=== PATIENT | male | born 2000 | race Caucasian/White ===

== ENCOUNTER 2023-02-22 13:00 | Outpatient (RCR) | payer BC, SELFPAY | END 2023-05-08 09:32 | disposition home or self-care (01) | PROVIDERS: PCP Family Medicine; Visit Provider Physician Assistant Medical | DX: M25.561 Pain in right knee (principal); G89.29 Other chronic pain; M62.81 Muscle weakness (generalized); M25.662 Stiffness of left knee, not elsewhere classified; Z51.89 Encounter for other specified aftercare | CPT/HCPCS: 97110; 97163 ==

== ENCOUNTER 2023-06-22 23:47 | Emergency (ER) | payer BC, SELFPAY ==
[2023-06-22 23:55] VITALS: BP 147/80; PULSE 79; RESP 16; TEMP 36.9; O2SAT 98
--- NOTE | 2023-06-23 00:10 | CRLHL7_ITS ---
For Patients: As a result of the Century Cures Act, medical imaging exams and procedure reports are released immediately into your electronic medical record. You may view this report before your referring provider. If you have questions, please contact your health care provider. INDICATION: Left leg pain leg surgery 1 week ago TECHNIQUE: Ultrasound venous duplex lower left extremity. Compression venous exam was performed using spring-scale, color Doppler, and spectral Doppler analysis. COMPARISON: None FINDINGS: Sonographic imaging demonstrates the left common femoral, deep femoral, superficial femoral, popliteal, posterior tibial and greater saphenous and the contralateral right common femoral veins to be fully compressible with normal color Doppler blood flow. IMPRESSION: Normal left lower extremity venous ultrasound, no sign of deep venous thrombosis. Dictated by Zonia Gifford MD @ 06/23/2023 1:44:40 AM (Electronically Signed)
--- NOTE | 2023-06-23 00:11 | ED.GENADULT ---
HPI - General Adult General Chief complaint: Unspecified Complaint, Adult Stated complaint: Post-surgery, leg pain L side Time Seen by Provider: 06/23/23 00:06 History of Present Illness HPI narrative: Patient is a 23-year-old gentleman who has had repeated surgeries on the right cutaneous femoral region most recently a DRG which is apparently a continuous stimulator. This is helped with his pain in the right groin but he last night developed significant swelling in his left leg. The pain has persisted with swelling today although it is somewhat improved. He tried: His surgeon and was unable to get a hold of them. He is concerned that he has a blood clot in his left leg. He has had no recent injuries. He has no redness no warmth no significant swelling noted tonight. He has normal range of motion of all of his joints as no worsening of his symptoms with walking. He is chronically on oxycodone and hydrocodone as well as hydroxyzine for his discomfort. Related Data Home Medications Medication Instructions Recorded Confirmed hydrocodone 5 mg-acetaminophen 325 1 tab PO Q6-8H chronic pain 06/23/23 06/23/23 mg tablet hydroxyzine HCl 25 mg tablet 25 mg PO BID 06/23/23 06/23/23 oxycodone 5 mg tablet PO 06/23/23 Allergies Allergy/AdvReac Type Severity Reaction Status Date / Time amoxicillin Allergy Intermediate Hives Verified 06/23/23 00:00 cephalexin Allergy Intermediate Verified 06/23/23 00:00 Review of Systems Status of ROS: Reports: 10 or more systems reviewed and unremarkable except as noted in History and below [facility] Social History Smoking Status: Never smoker Do you use any of these nicotine containing products: None How often do you have a drink containing alcohol: never AUDIT-C Alcohol total score: 0 Non-prescribed substance use: denies use Exam Narrative: Exam Narrative: EXAM GENERAL: Patient appears comfortable and well. EYES: No scleral icterus. ENT: Tympanic membranes and oropharynx normal. THYROID: no thyroid nodules or thyromegaly. LYMPH: No supraclavicular or cervical lymphadenopathy. SKIN: Visible skin seen during exam normal or with benign process only. EXT: No dependent lower extremity pedal edema. HEART: Regular rate and rhythm with no murmurs, rubs, or gallops. LUNGS: Clear to auscultation bilaterally with no crackles or wheezes. ABD: Soft, non tender, non distended. PSYCH: Good eye contact, speech is not pressured. Const: Vital Signs, click to edit/add: Vital Signs - 24 hr 06/22/23 23:55 Temperature 98.5 F Pulse Rate [Left P ulse Oximeter] 79 Respiratory Rate 16 Blood Pressure [Ri ght Upper Arm] 147/80 H Pulse Oximetry 98 Oxygen Delivery Me thod Room Air Course Course ED Course: Patient seen examined. I do not see any significant findings on exam. Proceed with a duplex of the left lower extremity. Vital Signs Vital signs: Initial Vital Signs Temperature 98.5 F 06/22/23 23:55 Temperature Source Oral 06/22/23 23:55 Pulse Rate 79 06/22/23 23:55 Pulse Rhythm Regular 06/22/23 23:55 Respiratory Rate 16 06/22/23 23:55 Blood Pressure 147/80 H 06/22/23 23:55 Blood Pressure Mean 102 06/22/23 23:55 Blood Pressure Position Sitting 06/22/23 23:55 Pulse Oximetry 98 06/22/23 23:55 Oxygen Delivery Method Room Air 06/22/23 23:55 Vital Signs Temperature 98.5 F 06/22/23 23:55 Pulse Rate 79 06/22/23 23:55 Respiratory Rate 16 06/22/23 23:55 Blood Pressure 147/80 H 06/22/23 23:55 Pulse Oximetry 98 06/22/23 23:55 Oxygen Delivery Method Room Air 06/22/23 23:55 Temperature 98.5 F 06/22/23 23:55 Pulse Rate 79 06/22/23 23:55 Respiratory Rate 16 06/22/23 23:55 Blood Pressure 147/80 H 06/22/23 23:55 Pulse Oximetry 98 06/22/23 23:55 Oxygen Delivery Method Room Air 06/22/23 23:55 Medical Decision Making MDM Narrative Medical decision making narrative: Patient presents with pain and swelling left leg following a surgical procedure on the right leg. Duplex of left lower extremity is normal. Patient has a normal physical exam reasonably normal vital signs. At this time I did offer reassurance continue pain management follow-up with his primary physician as needed. Discharge Plan Discharge Clinical Impression: Leg swelling Patient Disposition: Home, Self-Care Condition: Stable Instructions: Leg Edema (ED) Additional Instructions: Continue symptomatic treatment Leg elevation Continue current medications Follow-up with your doctor next week. Activity Level: No Restrictions Discharge Diet: Regular Prescriptions: No Action hydrocodone-acetaminophen 5-325 mg tablet 1 tab PO Q6-8H hydroxyzine HCl 25 mg tablet 25 mg PO BID oxycodone 5 mg tablet PO Follow Up/Referrals: Marcelo Javier MD [Primary Care Provider] - Stand Alone Forms: [employer] Info Instructions
== END 2023-06-23 01:26 | disposition home or self-care (01) ==
PROVIDERS: Emergency Provider Internal Medicine; PCP Family Medicine
DX: R22.42 Localized swelling, mass and lump, left lower limb (principal)
CPT/HCPCS: 93971; 99283

== ENCOUNTER 2025-06-05 20:14 | Emergency (ER) | payer BC, SELFPAY ==
--- OUTSIDE RECORDS SUMMARY | 2022-01-11 05:56 | XMS_ITS | Continuity of Care Document ---
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 Phone Curry Rojas MD, Francisco Unavailable Unavailabl e Allergies, Adverse Reactions, Alerts Substance Reaction Status Criticality cephalexin Active No Information amoxicillin Active No Information Medications Medication Instructions Dosage Effective Dates (start - stop) Status Comments gabapentin 600 mg tablet take 1 tablet by oral route 3 times every day 600 MG - Active Xifaxan 550 mg tablet take 1 tablet by oral route 3 times every day 550 MG - Active ciprofloxacin 500 mg tablet take 1 tablet by oral route 2 times every day 500 MG - Active hydroxyzine HCl 25 mg tablet take 1 tablet by oral route 3 times every day as needed 25 MG - Active hydrocodone 5 mg-acetaminophen 325 mg tablet take 1 - 1.5 tablet by oral route 2 times every day 1-1.5 tablet - Active Probiotic 10 billion cell capsule take 1 capsule by oral route every day 1 capsule - Active Herbal Medications/Supplemen ts unknown - Active Procedures Procedure Date Offic/outpt E&m Estab Mod-hi 2 22 Stool Kits Given Ugi Endo; W/bx 1/mx Level Iv-surg Path Gross/micro Colonoscopy Flex; W/bx 1/mx Level Iv-surg Path Gross/micro Routine Serum Collection Offic/outpt E&m [facility] Mod-hi Advance Directives Directive Yes / No Effective Date File Name No Information Encounters Encounter Description Practice Location Reason(s) For Visit Diagnoses Date Provider Providers Copied on Encounter [facility], [address] [address], [place], [id number], [place] tel:[phone] [facility] No Information 2 Curry Singh. [address], [facility] [address], [place], [place], [id number], [place]. tel:[phone] Offic/outpt E&m [facility] Mod-hi 2 [facility], [address] [address], [place], [id number], [place] tel:[phone] [facility] GI Symptoms or Concerns (chief complaint) Irritable bowel syndrome with diarrhea 2 Leyla Roblero. [address], [address], [place], [place], [id number], [place]. tel:[phone] Referring Provider: Referral Self, USE FOR SELF REFERRALS. [facility] [place], [address] [address], [place], [id number], [place] tel:[phone] [facility] No Information 1 No Information [facility] [place], [address] [address], [place], [id number], [place] tel:[phone] [facility] No Information 1 Nisha Perez. [address], [address], [place], [place], [address], [place]. tel:[phone] Referring Provider: Referral Self, USE FOR SELF REFERRALS. [facility] [place], [address] [address], [place], [id number], [place] tel:[phone] [facility] Lower abdominal pain, unspecifiedDia rrhea, unspecifiedEpi gastric painEpigastric painDiarrhea, unspecifiedLow er abdominal pain, unspecified Jun- 1 Nisha Perez. [address], [facility] [address], [place], [address], [place]. tel:[phone] Referring Provider: Referral Self, USE FOR SELF REFERRALS. [facility], [address] [address], [place], [id number], [place] tel:[phone] [facility] Lower abdominal painGeneralize d abdominal painDiarrhea, unspecified 1 No Information [facility], [address] [address], [place], [id number], [place] tel:[phone] [facility] Diarrhea, unspecified No Information [facility], [address] [address], [place], [id number], [place] tel:[phone] [facility] Diarrhea, unspecifiedDia rrhea, unspecified 1 Wayne Lucas. [address], [address], [id number], [place]. tel:[phone] Referring Provider: Marcelo Edmonds, Ras [facility], [place], [address]. tel:[phone] Offic/outpt E&m [facility], [address] [address], [place], [id number], [place] tel:[phone] [facility] GI Symptoms or Concerns (chief complaint) Diarrhea, unspecified type 1 No Information Referring Provider: Referral Self, USE FOR SELF REFERRALS. [facility], [address] [address], [place], [id number], [place] tel:[phone] [facility] No Information 1 Fela Nicolas. [address], [facility] [address], [place], [address], [place]. tel:[phone] Family History Family Member Type Diagnosis Age At Onset Mother Problem (finding) diverticulitis of colon Immunizations Vaccine Date Status Comments SARS-COV-2 (COVID-19) vaccin e, mRNA, spike protein, LNP, preservative free, 30 mcg/0.3mL dose administered Note: [facility] bi-direct ional interface ; Source: Other Registry SARS-COV-2 (COVID-19) vaccin e, mRNA, spike protein, LNP, preservative free, 30 mcg/0.3mL dose administered Note: [facility] bi-direct ional interface ; Source: Other Registry SARS-COV-2 (COVID-19) vaccin e, mRNA, spike protein, LNP, preservative free, 30 mcg/0.3mL dose administered Note: [facility] bi-direct ional interface ; Source: Other Registry Afluria Qd administered Note: [facility] bi-directional interface ; Source: Other Registry Afluria Qd administered Note: [facility] bi-directional interface ; Source: Other Registry Afluria Qd administered Note: [facility] bi-directional interface ; Source: Other Registry Afluria Qd administered Note: [facility] bi-directional interface ; Source: Other Registry Havrix pediatric administered Note: [facility] bi-directional interface ; Source: Other Registry meningococcal oligosaccharid e (groups A, C, Y and W-135) diphtheria toxoid conjugate vaccine (MCV4O) administered Note: [facility] bi-direct ional interface ; Source: Other Registry Afluria Qd administered Note: [facility] bi-directional interface ; Source: Other Registry Afluria Qd administered Note: M [facility] bi-directional interface ; Source: Other Registry human papilloma virus vaccin e, quadrivalent administered Note: [facility] bi-direct ional interface ; Source: Other Registry human papilloma virus vaccin e, quadrivalent administered Note: [facility] bi-direct ional interface ; Source: Other Registry human papilloma virus vaccin e, quadrivalent administered Note: [facility] bi-direct ional interface ; Source: Other Registry Havrix pediatric administered Note: [facility] bi-directional interface ; Source: Other Registry meningococcal oligosaccharid e (groups A, C, Y and W-135) diphtheria toxoid conjugate vaccine (MCV4O) administered Note: [facility] bi-direct ional interface ; Source: Other Registry tetanus toxoid, reduced diphtheria toxoid, and acellular pertussis vaccine, adsorbed administered Note: [facility] b i-directional interface ; Source: Other Registry Influenza, seasonal, injecta ble, preservative free administered Note: [facility] bi-direct ional interface ; Source: Other Registry Influenza, seasonal, injectable administe red Note: [facility] bi- directional interface ; Source: Other Registry Novel [id number], all formulations administered Note: [facility] bi-direct ional interface ; Source: Other Registry Influenza, seasonal, injectable administe red Note: [facility] bi- directional interface ; Source: Other Registry Influenza, seasonal, injectable administe red Note: [facility] bi- directional interface ; Source: Other Registry Influenza, seasonal, injectable administe red Note: [facility] bi- directional interface ; Source: Other Registry Influenza, seasonal, injectable administe red Note: [facility] bi- directional interface ; Source: Other Registry influenza virus vaccine, unspecified formulation administered Note: [facility] bi-di rectional interface ; Source: Other Registry diphtheria, tetanus toxoids and acellular pertussis vaccine administered Note: [facility] b i-directional interface ; Source: Other Registry poliovirus vaccine, inactivated administe red Note: [facility] bi- directional interface ; Source: Other Registry measles, mumps and rubella v irus vaccine administered Note: [facility] bi-direct ional interface ; Source: Other Registry Pneumovax administered Note: [facility] bi-d irectional interface ; Source: Other Registry measles, mumps and rubella v irus vaccine administered Note: [facility] bi-direct ional interface ; Source: Other Registry DTaP-Haemophilus influenzae type b conjugate vaccine administered Note: [facility] bi-direct ional interface ; Source: Other Registry varicella virus vaccine administered Note : [facility] bi-directional interface ; Source: Other Registry Pneumovax administered Note: [facility] bi-d irectional interface ; Source: Other Registry Pneumovax administered Note: [facility] bi-d irectional interface ; Source: Other Registry Engerix-B administered Note: [facility] bi-d irectional interface ; Source: Other Registry poliovirus vaccine, inactivated administe red Note: [facility] bi- directional interface ; Source: Other Registry Haemophilus influenzae type b vaccine, PRP-T conjugate administered Note: [facility] bi-d irectional interface ; Source: Other Registry Engerix-B administered Note: [facility] bi-d irectional interface ; Source: Other Registry diphtheria, tetanus toxoids and acellular pertussis vaccine administered Note: [facility] b i-directional interface ; Source: Other Registry poliovirus vaccine, inactivated administe red Note: [facility] bi- directional interface ; Source: Other Registry Haemophilus influenzae type b vaccine, PRP-T conjugate administered Note: [facility] bi-d irectional interface ; Source: Other Registry Engerix-B administered Note: [facility] bi-d irectional interface ; Source: Other Registry diphtheria, tetanus toxoids and acellular pertussis vaccine administered Note: [facility] b i-directional interface ; Source: Other Registry poliovirus vaccine, inactivated administe red Note: [facility] bi- directional interface ; Source: Other Registry Haemophilus influenzae type b vaccine, PRP-T conjugate administered Note: [facility] bi-d irectional interface ; Source: Other Registry diphtheria, tetanus toxoids and acellular pertussis vaccine administered Note: [facility] b i-directional interface ; Source: Other Registry Payers Payer name Insurance type Covered constitution party ID Authoriza tion(s) [place] [id number] Social History Type Description Quantity Date Captured Comments Sex Male Smoking Status No Information Chief Complaint And Reason For Visit No Information Reason For Referral Reason For Referral No Information Plan Of Treatment Date Type Action Status Referral Ordered: Ultrasound Abdomen Appointment date/timeframe: 06/29/2021 ordered Referral Ordered: Giardia lamblia Ag, EIA Appointment date/timeframe: 07/08/2021 ordered Referral Ordered: CMP Appointment date/timeframe: 07/08/2021 ordered Referral Ordered: Amylase Appointment date/timeframe: 07/08/2021 ordered Referral Ordered: EGD Appointment date/timeframe: 06/25/2021 ordered Referral Ordered: C-Reactive Protein Appointment date/timeframe: 07/08/2021 ordered Referral Ordered: Stool Culture Appointment date/timeframe: 07/08/2021 ordered Referral Ordered: CBC w/diff Appointment date/timeframe: 07/08/2021 ordered Referral Ordered: Ova + Parasites Appointment date/timeframe: 07/08/2021 ordered Referral Ordered: MRI Enterography WITH Contrast Appointment date/timeframe: 06/16/2021 ordered Referral Ordered: Colonoscopy Appointment date/timeframe: First Available ordered History Of Present Illness Encounter Date Complaint History Of Prese nt Illness GI Symptoms or Concerns I had th e pleasure of seeing Mr. Mehta in the office today, who is here for follow up of abdominal pain, loose stools. History is provided by the patient.Patient is a 21-year-old male with a prior GI workup suggestive of IBS who is here for evaluation of ongoing symptoms. He reports having developed diarrhea around March 2021, associated with left lower quadrant crampy abdominal pain with increased mucus. At that time, he underwent upper endoscopy and colonoscopy -both within normal limits. Labs including celiac serology, CBC were normal. He was treated for E coli with ciprofloxacin without much change in his symptoms at that time.Currently, he endorses 3-4 bowel movements daily, generally loose on most days. However, he does have regular bowel movements occasionally. He continues to have left lower quadrant crampy abdominal pain that generally gets better after moving his bowels. Denies any associated melena, hematochezia, fever, chills, any extra intestinal manifestations such as arthritis, uveitis, rash or aphthous ulcers. His weight and appetite has been mostly stable for last many months. Other workup has included imaging studies, including CT scans and MRE -although I do not have access to his MR enterography report. All these studies were unremarkable. There is no family history of IBD or any GI cancers. He reports personal history of migraine. GI Symptoms or Concerns Fidencio is a 21-year-old male who self-referred for evaluation today regarding diarrhea. He reports a 2 month history of diarrhea. Approximately 2 months ago he had a COVID infection followed shortly thereafter by knee surgery. He was taking narcotics for pain following his knee surgery as well as stool softeners for a limited time. Shortly following this he developed loose, watery bowel movements.Has 4-5 bowel movements per day on average day but can be upwards of 7. Most stools are [place] 5, 6. He also has a sensation of incomplete evacuation, mucous with his bowel movements. He has associated cramping like abdominal pain that comes and goes often precedes a bowel movement and is at times relieved with a bowel movement. He describes this cramping pain is similar to when he had the C diff infection. He reports some bowel movements in the overnight hours. He has tried to exclude dairy which was not helpful. Has also tried a pre and probiotic, fiber. These also were not helpful. Stool testing from his provider showed negative cdiff, stool panel which included camplyobacter, salmonella, shigella, vibrio, yersinia enterocolitica, shiga toxin, norovirus, rotavirus, was negative. (giardia not tested). His weight has decreased by 7 pounds in the last couple months. He reports his appetite is impaired. Denies fever, chills, nausea, vomiting, rectal bleeding or bloody stools. He has a past medical history of salivary stone. Status post appendectomy, tonsillectomy. He has had multiple knee surgeries. He has no family history of ulcerative colitis, celiac disease. His mother has diverticulosis. He does not smoke. Drinks 1 alcoholic beverage per week. He takes NSAIDs very frequently but did use some following his recent knee surgery. He has not had any recent travel. He has not been exposed to any sick contacts. Functional Status Date Functional Assessmen t No Information Instructions Date Instruction Additional Infor williams H Pylori Related to Diarr hea, unspecified Colon Cancer Prevention Related to Diarrhea, unspecified LAB TESTSWe will dra leela mac to check:CBC (complete blood count) to look for anemia/assess white blood cell countTSH (thyroid stimulating hormone) to check thyroid functionBMP (basic metabolic panel or comprehensive metabolic panel) to check kidney function and electrolytesCeliac panel to screen for celiac diseasePROCEDURESWe will schedule a colonoscopy and will obtain biopsies of the colon to look for evidence of inflammation.We will schedule an EGD to obtain biopsies of the duodenum to evaluate for celiac disease (if blood work for celiac disease is positive).LIFESTYLEDrink plenty of water to avoid dehydration.FOLLOW UPWe will schedule a follow up visit following testing. MEDICATIONSStart Imodium 2 tablets (4 mg) initially, then 1 tablet (2 mg) after each loose stool, not to exceed 16mg per day. Related to Diarrhea, unspecified type Assessments Type Assessment Date No Information Patient Care Teams Name Effective Dates (start - stop) Status Members No Information
--- OUTSIDE RECORDS SUMMARY | 2022-01-11 05:56 | XMS_ITS | Continuity of Care Document ---
Author Organization [facility] Address [address] [address] [place] [address] Phone Care Team Providers Care Receptionist Nurse Name Role Phone Curry Rojas MD, Francisco [...] Path Gross/micro Routine Serum Collection Offic/outpt E&m [facility] Mod-hi Advance Directives Directive Yes / No Effective Date File Name No Information Encounters Encounter Description Practice Location Reason(s) For Visit Diagnoses Date Provider Providers Copied on Encounter [facility], [address] [address], [place], [id number], [place] tel:[phone] [facility] No Information 2 Curry Singh. [address] [facility], [facility] [address], [place], [place], [id number], [place]. tel:[phone] Offic/outpt E&m [facility] Mod-hi 2 [facility], [address] [address], [place], [id number], [place] tel:[phone] [facility] GI Symptoms or Concerns (chief complaint) Irritable bowel syndrome with diarrhea 2 Leyla Roblero. [address] [facility], [address], [place], [place], [id number], [place]. tel:[phone] Referring Provider: Referral Self, USE FOR SELF REFERRALS. [facility], [address] [address], [place], [id number], [place] tel:[phone] [facility] No Information 1 No Information [facility], [address] [address], [place], [id number], [place] tel:[phone] [facility] No Information 1 Nisha Perez. [address] [facility], [address], [place], [place], [address], [place]. tel:[phone] Referring Provider: Referral Self, USE FOR SELF REFERRALS. [facility], [address] [address], [place], [id number], [place] tel:[phone] [facility] Lower abdominal pain, unspecifiedDia rrhea, unspecifiedEpi gastric painEpigastric painDiarrhea, unspecifiedLow er abdominal pain, unspecified Jun- 1 Nisha Perez. [address] [facility], [facility] [address], [place], [id number], [place]. tel:[phone] Referring Provider: Referral Self, USE FOR SELF REFERRALS. [facility], [address] [address], [place], [id number], [place] tel:[phone] [facility] Lower abdominal painGeneralize d abdominal painDiarrhea, unspecified 1 No Information [facility], [address] [address], [place], [id number], [place] tel:[phone] [facility] Diarrhea, unspecified No Information [facility], [address] [address], [place], [id number], [place] tel:[phone] [facility] Diarrhea, unspecifiedDia rrhea, unspecified 1 Wayne Lucas. [address] [facility], [address], [id number], [place]. tel:[phone] Referring Provider: Marcelo Edmonds, Ras [facility], [place], [address]. tel:[phone] Offic/outpt E&m [facility], [address] [address], [place], [id number], [place] tel:[phone] [facility] GI Symptoms or Concerns (chief complaint) Diarrhea, unspecified type 1 No Information Referring Provider: Referral Self, USE FOR SELF REFERRALS. [facility], [address] [address], [place], [id number], [place] tel:[phone] [facility] No Information 1 Fela Nicolas. [address] [facility], [facility] [address], [place], [id number], [place]. tel:[phone] Family History Family Member Type Diagnosis Age [...] directional interface ; Source: Other Registry Novel [id number], all formulations administered Note: [facility] bi-direct ional [...] Registry Payers Payer name Insurance type Covered alliance party ID Authoriza tion(s) [place] [id number] Social History Type Description Quantity Date Captured [...] be upwards of 7. Most stools are [place] 5, 6. He also has a sensation [...]
--- OUTSIDE RECORDS SUMMARY | 2023-10-05 06:08 | XMS_ITS | Continuity of Care Document ---
Author Organization [facility] Address [address] [facility] [place] [address] Care Team Providers Care Sailmaker Name Role Phone Jewel Mccormick CRNA Unavailable Unavailable Procedures Procedure Date Percutaneous Image guided neuromodulatio n or intra Percutaneous Image guided neuromodulatio n or intra Percutaneous Image guided neuromodulatio n or intra ANESTH, HEAD/NECK/PTRUNK Percutaneous Image guided neuromodulatio n or intra ANESTH, HEAD/NECK/PTRUNK Percutaneous Image guided neuromodulatio n or intra Advance Directives Directive Yes / No Effective Date File Name No Information Encounters Encounter Description Practice Location Reason(s) For Visit Diagnoses Date Provider Providers Copied on Encounter [facility], [address] [facility] [place], [id number], [facility] [place] No Information 4 Jace Holloway. [address] [facility], [place], [place], [id number], . tel:[phone] Referring Provider: Kaylie Yanez, [address] [place], [address] . tel:[phone] [facility], [address] [facility] [address] [place], [place], [id number], [facility] [place] No Information 3 Jace Holloway. [address], [place], [place], [id number], [place]. tel:[phone] Referring Provider: Kaylie Yanez, [address], [place], [address] . tel:[phone] [facility], [address], [place], [place], [id number], [place] [facility] [place] No Information 3 Schaefer Ivan. [address], [facility], [place], [place], [id number], [place]. tel:[phone] Referring Provider: Kaylie Yanez, [address], [place], [address] . tel:[phone] [facility], [address], [place], [place], [id number], [facility] No Information 3 Vu Morales. [facility], [facility] [place] [place], [id number], [place]. tel:[phone] Referring Provider: Sree Navas, [facility] [place], [address] . tel:[phone] [facility], [address], [place], [place], [id number], [place] [facility] No Information 3 Ernst Phelps. [address], [facility], [place], [place], [id number], [place]. tel:[phone] Referring Provider: Kaylie Yanez, [facility] [place], [address] . tel:[phone] [facility], [address] [place], [id number], [facility] No Information 3 Vu Morales. [facility], [address] [place], [id number], [place]. tel:[phone] Referring Provider: Sree Navas, [facility] [place], [address] . tel:[phone] [facility], [address] [place], [place], [id number], [place] [facility] No Information 2 Jace Holloway. [address] [facility], [facility], [place], [place], [id number], . tel:[phone] Referring Provider: Sree Navas, [address] [place], [address] . tel:[phone] Family History Family Member Type Diagnosis Age At Onset No Information Payers Payer name Insurance type Covered libertarian ID Authoriza tiduane(s) Blue Cross Blue Bre Davis [id number] Social History Type Description Quantity Date Captured Comments Sex Male Smoking Status No Information Chief Complaint And Reason For Visit No Information Reason For Referral Reason For Referral No Information History Of Present Illness Encounter Date Complaint History Of Prese nt Illness No Information Functional Status Date Functional Assessmen t No Information Instructions Date Instruction Additional Infor mation No Information Assessments Type Assessment Date No Information Patient Care Teams Name Effective Dates (start - stop) Status Members No Information
--- OUTSIDE RECORDS SUMMARY | 2023-10-05 06:08 | XMS_ITS | Continuity of Care Document ---
Author Organization [facility] Address [address] [place] [address] Care Team Providers Care Laundromat Manager Name Role Phone Jewel Mccormick CRNA Unavailable [...] Diagnoses Date Provider Providers Copied on Encounter [facility], [address] [facility] [place], [id number], [facility] [place] No Information 4 Jace Holloway. [address] [facility], [place], [place], [id number], . tel:[phone] Referring Provider: Kaylie Yanez, [address] [facility] [place], [address] . tel:[phone] [facility], [address] [facility] [address] [place], [place], [id number], [facility] [place] No Information 3 Jace Holloway. [address], [place], [place], [id number], [place]. tel:[phone] Referring Provider: Kaylie Yanez, [address], [place], [address] . tel:[phone] [facility], [address], [place], [place], [id number], [place] [facility] [place] No Information 3 Schaefer Ivan. [address], [facility], [place], [place], [id number], [place]. tel:[phone] Referring Provider: Kaylie Yanez, [address], [place], [address] . tel:[phone] [facility], [address], [place], [place], [id number], [facility] No Information 3 Vu Morales. [facility], [facility] [place], [id number], [place]. tel:[phone] Referring Provider: Sree Navas, [facility] [place], [address] . tel:[phone] [facility], [address], [place], [place], [id number], [place] [facility] No Information 3 Ernst Phelps. [address], [facility], [place], [place], [id number], [place]. tel:[phone] Referring Provider: Kaylie Yanez, [facility] [place], [address] . tel:[phone] [facility], [address] [place], [address], [facility] No Information 3 Vu Morales. [facility], [address] [place], [id number], [place]. tel:[phone] Referring Provider: Sree Navas, [facility] [place], [address] . tel:[phone] [facility], [address] [place], [place], [id number], [place] [facility] No Information 2 Jace Holloway. [address] [facility], [facility], [place], [place], [id number], . tel:[phone] Referring Provider: Sree Navas, [address] [place], [address] . tel:[phone] Family History Family Member Type Diagnosis Age At Onset No Information Payers Payer name Insurance type Covered democrat ID Authoriza tiduane(s) Blue Cross Blue Bre Davis [id number] Social History Type Description Quantity Date [...]
--- OUTSIDE RECORDS SUMMARY | 2023-12-05 08:30 | XMS_ITS | Continuity of Care Document ---
Author Organization [facility] enter Address [address] [place] [address] [address] [facility] [address] [place] [address] Phone Care Team Providers Care Floor Press Operator Name Role Phone [facility] Unavailable Unava ilable Procedures Procedure Date NERVOUS SYSTEM SURGERY FLUOROGUIDE FOR SPINE INJECT INJ TRIGGER POINT, 07/17 MUSCL NEEDLE LOCALIZATION BY XRAY IMPLANT NEUROELECTRODES INSRT/REDO SPINE N GENERATOR Implt neurostim elctr each Imp neurosti pls gn any type IMPLANT NEUROELECTRODES IMPLANT NEUROELECTRODES Implt neurostim elctr each INJ FORAMEN EPIDURAL L/S INJ FORAMEN EPIDURAL L/S INJ TRIGGER POINT, 07/17 MUSCL Ultrasound Guidance INJ TRIGGER POINT, 07/17 MUSCL Ultrasound Guidance Advance Directives Directive Yes / No Effective Date File Name No Information Encounters Encounter Description Practice Location Reason(s) For Visit Diagnoses Date Provider Providers Copied on Encounter [facility], [address] [place] [address] [address] [facility] [address], [place], [id number], tel:[phone] [facility] No Information [facility]. [address], [id number], [place]. tel:[phone] Referring Provider: Jordana Palmer, [address] [facility] [place], [address] . tel:[phone] [place] [address], [address] [place] [address], [id number], tel:[phone] [place] [address] No Information 3 [facility]. [address] [place] [address], [id number], [place]. tel:[phone] Referring Provider: Jordana Palmer, [address] [facility] [place], [address] . tel:[phone] [place] [address], [address] [place] [address], [id number], tel:[phone] [place] [address] No Information 3 [facility]. [address] [place] [address], [id number], [place]. tel:[phone] Referring Provider: Sree Navas, [address] [place], [address] . tel:[phone] [place] [address], [address] [place] [address], [id number], tel:[phone] [place] [address] No Information 2 [facility]. [address] [place] [address], [id number], [place]. tel:[phone] Referring Provider: Sree Navas, [address] [place], [address] . tel:[phone] [place] [address], [address] [place] [address], [id number], tel:[phone] [place] [address] No Information 2 [facility]. [address] [place] [address], [id number], [place]. tel:[phone] Referring Provider: Sree Navas, [address] [place], [address] . tel:[phone] [facility], [address] [place] [address], [id number], tel:[phone] [facility] No Information 2 [facility]. [address] [place] [address], [id number], [place]. tel:[phone] Referring Provider: John Barajas, [employer] [address] [facility] [address], [place], [address]. tel:[phone] [facility], [address] [place] [address], [id number], tel:[phone] [facility] No Information [facility]. [address] [place] [address], [id number], [place]. tel:[phone] Referring Provider: John Barajas, [employer] [address] [facility] [address], [place], [address]. tel:[phone] Family History Family Member Type Diagnosis Age At Onset No Information Payers Payer name Insurance type Covered alliance party ID Authordominicka mitch(s) Blue Cross Nasir Davis BL [id number] Social History Type Description Quantity Date [...]
--- OUTSIDE RECORDS SUMMARY | 2023-12-05 08:30 | XMS_ITS | Continuity of Care Document ---
Author Organization [facility] enter Address [address] [place] [address] 11 [facility] 110 [place] [address] Phone Care Team Providers Care Insolvency Consultant Name Role Phone [facility] Unavailable Unava ilable Procedures Procedure Date NERVOUS [...] Diagnoses Date Provider Providers Copied on Encounter [facility], [address] [place] [address] 11 [facility] [place], [place], [id number], tel:[phone] [facility] No Information [facility]. [address], [id number], [place]. tel:[phone] Referring Provider: Jordana Palmer, [address] [place], [address] . tel:[phone] [place] [address], [address] [place] [address], [id number], tel:[phone] [place] [address] No Information 3 [facility]. [address] [place] [address], [id number], [place]. tel:[phone] Referring Provider: Jordana Palmer, [address] [place], [address] . tel:[phone] [place] [address], [address] [place] [address], [id number], tel:[phone] [place] [address] No Information 3 [facility]. [address] [place] [address], [id number], [place]. tel:[phone] Referring Provider: Sree Navas, [address] [place], [address] . tel:[phone] [place] [address], [address] [place] [address], [id number], tel:[phone] [place] [address] No Information 2 [facility]. [address] [place] [address], [id number], [place]. tel:[phone] Referring Provider: Sree Navas, [address] [place], [address] . tel:[phone] [place] [address], [address] [place] [address], [id number], tel:[phone] [place] [address] No Information 2 [facility]. [address] [place] [address], [id number], [place]. tel:[phone] Referring Provider: Sree Navas, [address] [place], [address] . tel:[phone] [facility], [address] [place] [address], [id number], tel:[phone] [facility] No Information 2 [facility]. [address] [place] [address], [id number], [place]. tel:[phone] Referring Provider: John Barajas, [employer] [address] [employer] [address] [facility] [address], [place], [address]. tel:[phone] [facility], [address] [place] [address], [id number], tel:[phone] [facility] No Information [facility]. [address] [place] [address], [id number], [place]. tel:[phone] Referring Provider: John Barajas, [employer] [address] [facility] [address], [place], [address]. tel:[phone] Family History Family Member Type Diagnosis Age At Onset No Information Payers Payer name Insurance type Covered republican ID Authordominicka mitch(s) Blue Cross Nasir Davis BL [id number] Social History Type Description Quantity Date [...]
--- OUTSIDE RECORDS SUMMARY | 2024-02-25 04:30 | XMS_ITS | Continuity of Care Document ---
Author Organization [facility] Address [address] [facility] [place] [address] Care Team Providers Care Laboratory Tech Name Role Phone [facility] Unavailable Unav ailable Procedures Procedure Date Facet Jt Inj Lumbar RIGHT Facet Jt Inj Lumbar LEFT Facet Inj Lumbar 2nd Level RIGHT 2023 Facet Inj Lumbar 2nd Level LEFT 024 Removal of spinal neurostimulator REVISE/REMOVE NEURORECEIVER Removal of spinal neurostimulator Revision, including replacement 023 Implt neurostim elctr each Revision, including replacement 023 Implt neurostim elctr each Unlisted Spine Sugery INJ TRIGGER POINT, / MUSCL Ultrasound Guidance INJ TRIGGER POINT, 07/17 MUSCL Ultrasound Guidance N BLOCK INJ, HYPOGAS PLXS FLUOROGUIDE FOR SPINE INJECT INJ TRIGGER POINT, 07/17 MUSCL Ultrasound Guidance N BLOCK, OTHER PERIPHERAL N BLOCK INJ, HYPOGAS PLXS FLUOROGUIDE FOR SPINE INJECT Advance Directives Directive Yes / No Effective Date File Name No Information Encounters Encounter Description Practice Location Reason(s) For Visit Diagnoses Date Provider Providers Copied on Encounter [facility], [address] [place] [address] [place], [place], [place], [id number], [place] [facility] [place] No Information [facility]. [address] [place] [address] [place], [place], [id number], [place]. tel:[phone] Referring Provider: Kaylie Yanez, [address] [place] [address], [id number]. tel:[phone] [place] [address], [address] [place] [address] [place], [id number], [facility] [place] No Information [facility]. [address] [place] [address] [place], [place], [id number], [place]. tel:[phone] Referring Provider: Kaylie Yanez, [address] [place] [address], [id number]. tel:[phone] [place] [address], [address] [place] [address] [place], [id number], [facility] [place] No Information [facility]. [address] [place] [address] Mas[place], [place], [id number], [place]. tel:[phone] Referring Provider: Kaylie Yanez, [address] [place] [address], [id number]. tel:[phone] [place] [address], [address] [place] [address] [place], [id number], [facility] [place] No Information [facility]. [address] [place] [address] Mas[place], [place], [place], [id number], [place]. tel:[phone] Referring Provider: Kaylie Yanez, [address] [place] [address], [id number]. tel:[phone] [place] [address], [address] [place] [address] [place], [id number], [facility] [place] No Information [facility]. [address] [place] [address] [place], [id number], [place]. tel:[phone] Referring Provider: Kaylie Yanez, [address] [place] [address], [id number]. tel:[phone] [facility], [address] [place] [address], [id number], [facility] [place] No Information [facility] [place]. [address] [place] [address] Mas[place], [place], [place], [id number], [place]. tel:[phone] Referring Provider: Kaylie Yanez, [address] [place] [address], [id number]. tel:[phone] [place] [address] [facility] [place], [address] [place] [address], [id number], [facility] [place] No Information [facility]. [address] [place] [address] Mas[place], [place], [place], [id number], [place]. tel:[phone] Referring Provider: Kaylie Yanez, [address] [place] [address], [id number]. tel:[phone] [place] [address], [address] [place] [address], [id number], [facility] [place] No Information [facility]. [address] [place] [address] Mas[place], [place], [place], [id number], [place]. tel:[phone] Referring Provider: Kaylie Yanez, [address] [place] [address], [address]. tel:[phone] [place] [address], [address] [place] [address], [id number], [facility] [place] No Information [facility]. [address] [place] [address] Mas[place], [place], [place], [id number], [place]. tel:[phone] Referring Provider: Kaylie Yanez, [address] [place] [address], [id number]. tel:[phone] [place] [address] [facility] [place], [address] [place] [address] Mas[place], [place], [place], [id number], [facility] [place] No Information [facility] [place]. [address] [place] [address], [place], [place], [id number], [place]. tel:[phone] Referring Provider: Kaylie Yanez, [address] [place], [address]. tel:[phone] [facility], [address] [place], [place], [id number], [place] [facility] [place] No Information [facility]. [address] [facility] [place], [id number], . tel:[phone] Referring Provider: Kaylie Yanez, [address] [place], [address]. tel:[phone] Family History Family Member Type Diagnosis Age At Onset No Information Payers Payer name Insurance type Covered democrat ID Babak meyer(s) Blue Cross Nasir Davis BL [id number] Social History Type Description Quantity Date [...]
--- OUTSIDE RECORDS SUMMARY | 2024-02-25 04:30 | XMS_ITS | Continuity of Care Document ---
Author Organization [facility] Address [address] [facility] [place] [address] Care Team Providers Care Therapy Aide Name Role Phone [facility] Unavailable Unav ailable Procedures Procedure Date Facet [...] Diagnoses Date Provider Providers Copied on Encounter [facility], [address] [place] [address] Mas[place], [place], [place], [id number], [place] [facility] [place] No Information [facility]. [address] [place] [address] [place], [place], [id number], [place]. tel:[phone] Referring Provider: Kaylie Yanez, [address] [place] [address], [address]. tel:[phone] [place] [address], [address] [place] [address] [place], [id number], [facility] [place] No Information [facility]. [address] [place] [address] [place], [place], [id number], [place]. tel:[phone] Referring Provider: Kaylie Yanez, [address] [place] [address], [address]. tel:[phone] [place] [address], [address] [place] [address] [place], [id number], [facility] [place] No Information [facility]. [address] [place] [address] [place], [place], [id number], [place]. tel:[phone] Referring Provider: Kaylie Yanez, [address] [place] [address], [address]. tel:[phone] [place] [address], [address] [place] [address] [place], [id number], [facility] [place] No Information [facility]. [address] [place] [address] [place], [place], [place], [id number], [place]. tel:[phone] Referring Provider: Kaylie Yanez, [address] [place] [address], [address]. tel:[phone] [place] [address], [address] [place] [address] [place], [id number], [facility] [place] No Information [facility]. [address] [place] [address] [place], [place], [id number], [place]. tel:[phone] Referring Provider: Kaylie Yanez, [address] [place] [address], [address]. tel:[phone] [facility], [address] [place] [address], [id number], [facility] [place] No Information [facility] [place]. [address] [place] [address] [place], [place], [place], [id number], [place]. tel:[phone] Referring Provider: Kaylie Yanez, [address] [place] [address], [address]. tel:[phone] [place] [address] [facility] [place], [address] [place] [address], [id number], [facility] [place] No Information [facility]. [address] [place] [address] [place], [place], [place], [id number], [place]. tel:[phone] Referring Provider: Kaylie Yanez, [address] [place] [address], [address]. tel:[phone] [place] [address], [address] [place] [address], [id number], [facility] [place] No Information [facility]. [address] [place] [address] [place], [place], [place], [id number], [place]. tel:[phone] Referring Provider: Kaylie Yanez, [address] [place] [address], [address]. tel:[phone] [place] [address], [address] [place] [address], [id number], [facility] [place] No Information [facility]. [address] [place] [address] [place], [place], [place], [id number], [place]. tel:[phone] Referring Provider: Kaylie Yanez, [address] [place] [address], [address]. tel:[phone] [place] [address] [facility] [place], [address] [place] [address] [place], [place], [place], [id number], [facility] [place] No Information [facility] [place]. [address] [place] [address], [place], [id number], [place]. tel:[phone] Referring Provider: Kaylie Yanez, [address] [place], [address]. tel:[phone] [facility], [address] [place], [place], [id number], [place] [facility] [place] No Information [facility]. [address] [facility] [place], [id number], . tel:[phone] Referring Provider: Kaylie Yanez, [address] [place], [address]. tel:[phone] Family History Family Member Type Diagnosis Age At Onset No Information Payers Payer name Insurance type Covered constitution party ID Babak meyer(s) [employer] Cross Nasir Davis BL [id number] Social History Type Description Quantity Date [...]
--- OUTSIDE RECORDS SUMMARY | 2025-05-19 05:51 | XMS_ITS | Continuity of Care Document ---
Author Organization [facility] ann Address [address] [place] [address] Phone Care Team Providers Care Middleware Consultant Name Role Phone Liz PAC, Pooja Unavailable Unavailable Allergies, Adverse Reactions, Alerts Substance Reaction Status Criticality cephalexin HivesHivesHivesUpset stomach Active No Information trimethoprim Paresthesia Active No Information sulfamethoxazole Paresthesia Active No Informat ion PENICILLIN HivesHivesHives Active No Informati on amoxicillin HivesHivesHives Active No Informati on Medications Medication Instructions Dosage Effective Dates (start - stop) Status Comments duloxetine 20 mg capsule,delayed release take 1 capsule by ORAL route every day 20 MG - Active fluticasone propionate 50 mcg/actuation nasal spray,suspension Inhale [address] into both nostrils once daily. - Active valacyclovir 500 mg tablet take 1 tablet by oral route every day 500 MG - Active Zyrtec 10 mg capsule - Active Procedures Procedure Date OFFICE VISIT, EST TELEMEDICINE OFFICE VISIT, EST TELEMEDICINE OFFICE/OUTPATIENT VISIT, EST Drug Urine Toxology With Chromatography Drug test def 8-14 classes OFFICE VISIT, EST TELEMEDICINE OFFICE VISIT, EST TELEMEDICINE OFFICE/OUTPATIENT VISIT, EST Facet Jt In Or MBB j Lumbar BILATERAL Au Facet Inj Or MBB Lumbar 2nd Level BILATE RAL Facet Jt In Or MBB j Lumbar BILATERAL Au Facet Inj Or MBB Lumbar 2nd Level BILATE RAL PT EVAL MOD COMPLEX 30 MIN OFFICE VISIT, EST TELEMEDICINE 24 NERVOUS SYSTEM SURGERY FLUOROGUIDE FOR SPINE INJECTION 024 OFFICE VISIT, EST TELEMEDICINE SCS Post Op Satellite OFFICE VISIT, EST TELEMEDICINE Removal of spinal neurostimu lator electrode Percutaneous Arrays,Including Fluoro REVISE/REMOVE NEURORECEIVER OFFICE VISIT, EST TELEMEDICINE ANALYZE NEUROSTIM, COMPLEX X-RAY SPINE LUMBAR AP & LAT SCS Post Op Satellite No Charge For Visit Per Prov OFFICE/OUTPATIENT VISIT, EST Lower Back LSO Brace No Charge For Visit Per Prov Revision, including replacement 023 OFFICE VISIT, EST TELEMEDICINE X-RAY SPINE LUMBAR AP & LAT ANALYZE NEUROSTIM, COMPLEX SCS Post Op Satellite No Charge For Visit Per Prov Revision, including replacement 023 OFFICE VISIT, EST TELEMEDICINE INJ TRIGGER POINT, 1/2 MUSCL NEEDLE LOCALIZATION BY Flouroscopy Sep-0 Foll-up eval q3mo opiod tx OFFICE/OUTPATIENT VISIT, EST POSTOP FOLLOW-UP VISIT Within Global Per iod 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) OFFICE/OUTPATIENT VISIT, EST OFFICE/OUTPATIENT VISIT, EST X-RAY SPINE LUMBAR AP & LAT OFFICE/OUTPATIENT VISIT, EST OFFICE/OUTPATIENT VISIT, EST Foll-up eval q3mo opiod tx OFFICE/OUTPATIENT VISIT, EST SCS Post Op Satellite SCS Post Op Satellite No Charge For Visit Per Prov IMPLANT NEUROELECTRODES INSRT/REDO SPINE N GENERATOR IMPLANT NEUROELECTRODES Foll-up eval q3mo opiod tx OFFICE VISIT, EST TELEMEDICINE Foll-up eval q3mo opiod tx PT-FOCUSED HLTH RISK ASSMT OFFICE/OUTPATIENT VISIT, EST SCS Lead Pull Satellite SCS Lead Pull Satellite ORTHOTIC MGMT AND TRAINING Initial Encou nter POSTOP FOLLOW-UP VISIT Within Global Per iod Lower Back LSO Brace IMPLANT NEUROELECTRODES ASC IMPLANT NEUROELECTRODES ASC ANALYZE NEUROSTIM, COMPLEX Implt neurostim elctr each INJ FORAMEN EPIDURAL L/S BILATERAL OFFICE/OUTPATIENT VISIT, EST Foll-up eval q3mo opiod tx Psych Dx Eval Foll-up eval q3mo opiod tx OFFICE/OUTPATIENT VISIT, EST Foll-up eval q3mo opiod tx OFFICE/OUTPATIENT VISIT, EST INJ TRIGGER POINT, 1/2 MUSCL Ultrasound Guidance INJ TRIGGER POINT, 1/2 MUSCL Ultrasound Guidance Foll-up eval q3mo opiod tx OFFICE/OUTPATIENT VISIT, EST SUPERIOR HYPOGAS PLXS N BLOCK INJ FLUOROGUIDE FOR SPINE INJECTION 022 INJ TRIGGER POINT, 1/2 MUSCL Ultrasound Guidance Nerve Block Other Peripheral LEFT Foll-up eval q3mo opiod tx OFFICE/OUTPATIENT VISIT, EST SUPERIOR HYPOGAS PLXS N BLOCK INJ FLUOROGUIDE FOR SPINE INJECTION 022 Foll-up eval q3mo opiod tx OFFICE/OUTPATIENT VISIT, EST OFFICE/OUTPATIENT VISIT, EST INJ TRIGGER POINT, 07/17 MUSCL Ultrasound Guidance OFFICE/OUTPATIENT VISIT, EST INJ TRIGGER POINT, 07/17 MUSCL Ultrasound Guidance Substance Interv 15-30mn OFFICE/OUTPATIENT VISIT, NEW Advance Directives Directive Yes / No Effective Date File Name No Information Encounters Encounter Description Practice Location Reason(s) For Visit Diagnoses Date Provider Providers Copied on Encounter [facility], [address] [place] [address] [place], [id number] , [place] tel:[phone] [facility] [place] No Information 5 Liz Pooja. [address] [place], [id number] , [place]. tel:[phone] OFFICE VISIT, EST TELEMEDICINE [facility], [address] [place], [id number] , [place] tel:[phone] [facility] low back pain (chief complaint) Other assisted (current) drug therapyOther spondylosis, lumbar regionCausalgia of left lower limbGeneralized abdominal painLong term (current) use of opiate analgesicEpigastr ic painVertebrogenic low back painOther muscle spasmChronic pain syndrome 4 Liz Pooja. [address] Ihs[place], [place], [id number] , [place]. 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 [address] [place], [place], [id number] , [place]. [phone] OFFICE/OUTPAT IENT VISIT, EST [facility], [address] [place] [address], [id number] , [place] [phone] [facility] [place] low back pain (chief complaint) Other assisted (current) drug therapyOther spondylosis, lumbar regionCausalgia of left lower limbGeneralized abdominal painLong term (current) use of opiate analgesicEpigastr ic painVertebrogenic low back painOther muscle spasmEncounter for therapeutic drug level monitoring Mar- 4 Beau Lott. [address] [place], [place], [id number] , [place]. [phone] Referring Provider: Sree Mckinney, [address] [place] [address], [address]. tel:[phone] OFFICE VISIT, EST TELEMEDICINE [facility], [address] [place] [address], [id number] , [place] [phone] [facility] low back pain (chief complaint) Other muscle spasmOther computer terminal operator (current) drug therapyOther spondylosis, lumbar regionCausalgia of left lower limbGeneralized abdominal painLong term (current) use of opiate analgesicEpigastr ic painVertebrogenic low back pain Sep- 4 Andra Enriquez. [address] [facility] [address], [place], [id number] , [place]. tel:[phone] Referring Provider: Sree Mckinney, [address] [place] [address], [address]. tel:[phone] OFFICE VISIT, EST TELEMEDICINE [facility], [address] [place] [address], [id number] , [place] [phone] [facility] low back pain (chief complaint) Other muscle spasmOther assisted (current) drug therapyOther spondylosis, lumbar regionCausalgia of left lower limbGeneralized abdominal painLong term (current) use of opiate analgesicEpigastr ic painVertebrogenic low back pain Feb-2 4 Yanez Kaylie. [address] [place], [id number] , [place]. tel: [phone] OFFICE/OUTPAT IENT VISIT, EST [facility], [facility] [place], [id number] , [place] tel: [phone] [facility] low back pain (chief complaint) Other assisted (current) drug therapyOther spondylosis, lumbar regionCausalgia of left lower limbGeneralized abdominal painLong term (current) use of opiate analgesicEpigastr ic painVertebrogenic low back painOther muscle spasm Feb- 4 Yanez Kaylie. [address] [place] [place], [id number] , [place]. tel: [phone] Referring Provider: Ni Andrew [address] [place], [address]. tel:[phone] [facility], [address] [place] [address] [place], [id number] , [place] tel: [phone] [facility] Other spondylosis, lumbar region 4 Yanez Kaylie. [address] [place] [place], [id number] , [place]. tel: [phone] [facility], [address] [place] [address] [place], [id number] , [place] tel: [phone] [facility] [place] Other spondylosis, lumbar region Feb-0 4 Carol Parkinson. Ni, [address] [place], [address], [place]. tel: [phone] [facility], [facility] [place], [id number] , [place] tel: [phone] [facility] [place] Other spondylosis, lumbar region Feb-0 4 Yanez Kaylie. [address] [place]hsan [place], [id number] , [place]. tel: [phone] Referring Provider: Ni Andrew [address] [place], [address]. tel:[phone] [facility], [address] [place] [address], [id number] , [place] tel: [phone] [facility] [place] lumbago (chief complaint) Other spondylosis, lumbar regionOther intervertebral disc degeneration, lumbar region 4 Lizet Contrerasew. [address] [place], [place], [id number] , [place]. tel: [phone] [facility], [address] [place] [address], [id number] , [place] tel: [phone] [facility] [place] Other spondylosis, lumbar region 4 Carol Parkinson. [place], [address] [place], [address], [place]. tel: [phone] OFFICE VISIT, EST TELEMEDICINE [facility], [address] [place] [address], [id number] , [place] tel: [phone] [facility] low back pain (chief complaint) Causalgia of left lower limbGeneralized abdominal painLong term (current) use of opiate analgesicEpigastr ic painOther assisted (current) drug therapyOther spondylosis, lumbar region 4 Carol Parkinson. [place], [address] [place], [address], [place]. tel: [phone] [facility], [address] [place] [address], [id number] , [place] tel: [phone] [facility] [place] Epigastric pain 4 Spencer Silveira. [address] [place] [address], [id number] , [place]. tel: [phone] Referring Provider: Sree Mckinney, [address] [place] [address], [address]. [phone] OFFICE VISIT, EST TELEMEDICINE [facility], [address] [place] [address], [id number] , [place] tel:[phone] [facility] [place] Abdominal pain (chief complaint) Causalgia of left lower limbOther intervertebral disc degeneration, lumbar regionGeneralized abdominal painLong term (current) use of opiate analgesicEpigastr ic pain November- 4 Medina Dan. [place], [address] [place], [address], [place]. [phone] Referring Provider: Sree Mckinney, [address] [place] [address], [address]. tel:[phone] OFFICE VISIT, EST TELEMEDICINE [facility], [address] [place] [address], [id number] , [place] tel:[phone] [facility] [place] Abdominal pain (chief complaint) Causalgia of left lower limbOther intervertebral disc degeneration, lumbar regionGeneralized abdominal painLong term (current) use of opiate analgesic Apr-0 4 Carol Cuevas [place], [address] [place], [address], [place]. [phone] Referring Provider: Sree Mckinney, [address] [place] [address], [address]. tel:[phone] [facility], [address] [place] [address], [id number] , [place] tel:[phone] [facility] [place] Causalgia of left lower limb 4 Yanez Kaylie. [address] [place] [address] [place], [place], [id number] , [place]. tel:[phone] Referring Provider: Sree Mckinney, [address] [place] [address], [address]. tel:[phone] [facility], [address] [place] [address], [id number] , [place] tel:[phone] [facility] [place] Causalgia of left lower limb Fe 4 Yanez Kaylie. [address] [place] [address] [place], [id number] , [place]. tel:[phone] OFFICE VISIT, EST TELEMEDICINE [facility], [address] [place] [address], [id number] , [place] tel: [phone] [facility] [place] Abdominal pain (chief complaint) Causalgia of left lower limbOther intervertebral disc degeneration, lumbar regionGeneralized abdominal painLong term (current) use of opiate analgesic 4 Beau Lott. [address] [place] [address], [id number] , [place]. tel: [phone] Referring Provider: Sree Mckinney, [address] [place] [address], [address]. [phone] [facility], [address] [place] [address], [id number] , [place] tel:[phone] [facility] Causalgia of left lower limb 4 Will Sree. [address] [place] [address], [id number] , [place]. tel:[phone] Referring Provider: Sree Mckinney, [address] [place] [address], [address]. [phone] OFFICE/OUTPAT IENT VISIT, [facility], [address] [place] [address], [id number] , [place] tel:[phone] [facility] Abdominal pain (chief complaint) Causalgia of left lower limbOther intervertebral disc degeneration, lumbar regionOther muscle spasmMyalgia, other siteGeneralized abdominal painStrain of fascia of abdomen, sequelaLong term (current) use of opiate analgesicOther assisted (current) drug therapyEncounter for screening for other disorder 3 Carol Parkinson. [place], [address] [place], [address], [place]. [phone] Referring Provider: Sree Mckinney, [address] [place] [address], [address]. [phone] [facility], [address] [place] [address], [id number] , [place] [phone] [facility] [place] Causalgia of left lower limbOther intervertebral disc degeneration, lumbar region 3 Yanez Kaylie. [address] [place] [address] [place], [place], [id number] , [place]. tel:[phone] Referring Provider: Sree Mckinney, [address] [place] [address], [address]. [phone] [facility], [address] [place] [address] [place], [id number] , [place] tel:[phone] [facility] [place] Causalgia of left lower limb 3 Yanez Kaylie. [address] [place] [address] [place], [place], [id number] , [place]. tel:[phone] Referring Provider: Sree Mckinney, [address] [place] [address], [address]. [phone] OFFICE VISIT, EST TELEMEDICINE [facility], [address] [place] [address] [place], [id number] , [place] tel:[phone] [facility] [place] Abdominal pain (chief complaint) Causalgia of left lower limbOther intervertebral disc degeneration, lumbar regionOther muscle spasmMyalgia, other siteGeneralized abdominal painStrain of fascia of abdomen, sequelaLong term (current) use of opiate analgesicOther assisted (current) drug therapy 3 Yanez Kaylie. [address] [place] [address] [place], [place], [id number] , [place]. tel:[phone] Referring Provider: Sree Mckinney, [address] [place] [address], [address]. tel:[phone] [facility], [address] [place] [address] [place], [id number] , [place] [phone] [facility] [place] Causalgia of left lower limb 3 Keaton Balbuena. [address] [place] [address] [place], [id number] , [place]. tel:[phone] Referring Provider: Sree Mckinney, [address] [place] [address], [address]. tel:[phone] [facility], [address] [place] [address], [id number] , [place] tel:[phone] [facility] Causalgia of left lower limb Nov-0 - 3 Keaton Balbuena. [address] [place] [address], [id number] , [place]. [phone] Referring Provider: Sree Mckinney, [address] [place] [address], [address]. tel:[phone] [facility], [address] [place] [address], [id number] , [place] [phone] [facility] Causalgia of left lower limb Oct-0 3 Carol Cuevas [place], [address] [place], [address], [place]. tel:[phone] Referring Provider: Sree Mckinney, [address] [place] [address], [address]. tel:[phone] [facility], [address] [place] [address], [id number] , [place] [phone] [facility] Causalgia of left lower limb Sep-2 - 3 Beau Lott. [address] [place] [address], [id number] , [place]. [phone] Referring Provider: Sree Mckinney, [address] [place] [address], [address]. 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 tel: [phone] [facility], [address] [place] [address], [id number] , [place] tel: [phone] [facility] Myalgia, other siteCausalgia of left lower limb Sep-0 - 3 Spencer Silveira. [address] [place] [address], [id number] , [place]. tel:[phone] Referring Provider: Sree Mckinney, [address] [place] [address], [address]. tel:[phone] [facility], [address] [place] [address], [id number] , [place] tel: [phone] Tele[facility] Myalgia, other site Sep-0 3 Medina Iggy. [place], [address] [place], [address], [place]. tel:[phone] OFFICE/OUTPAT IENT VISIT, EST [facility], [address] [place] [address], [id number] , [place] tel:[phone] [facility] Abdominal pain (chief complaint) Causalgia of left lower limbOther intervertebral disc degeneration, lumbar regionOther muscle spasmMyalgia, other siteGeneralized abdominal painStrain of fascia of abdomen, sequelaLong term (current) use of opiate analgesicOther assisted (current) drug therapy Apr-2 3 Carol Iggy. [place], [address] [place], [address], [place]. tel:[phone] Referring Provider: Sree Mckinney, [address] [place] [address], [address]. tel:[phone] [facility], [address] [place] [address], [id number] , [place] [phone] [facility] Causalgia of left lower limb Apr-1 3 Beau Lott. [address] [place] [address], [id number] , [place]. tel:[phone] Referring Provider: Sree Mckinney, [address] [place] [address], [address]. tel:[phone] [facility], [address] [place] [address] [place], [id number] , [place] tel: [phone] [facility] [place] Causalgia of left lower limb Apr-1 - 3 Yanez Kaylie. [address] [place], [place] [address], [place], [id number] , [place]. tel: [phone] Referring Provider: Sree Mckinney, [address] [place] [address], [address]. tel:[phone] OFFICE/OUTPAT IENT VISIT, [facility], [address] [place] [address] [place], [id number] , [place] tel: [phone] [facility] [place] Abdominal pain (chief complaint) Causalgia of left lower limb Apr-0 - 3 Yanez Kaylie. [address] [place] [address] [place], [place], [id number] , [place]. tel: [phone] Referring Provider: Sree Mckinney, [address] [place] [address], [address]. tel:[phone] OFFICE/OUTPAT IENT VISIT, [facility], [address] [place] [address] [place], [id number] , [place] tel: [phone] [facility] [place] Abdominal pain (chief complaint) Causalgia of left lower limb Mar-2 3 Yanez Kaylie. [address] [place] [address] [place], [place], [id number] , [place]. tel: [phone] Referring Provider: Sree Mckinney, [address] [place] [address], [address]. tel:[phone] [facility], [address] [place] [address] [place], [id number] , [place] tel: [phone] [facility] [place] Causalgia of left lower limb Mar-1 - 3 Keaton Balbuena. [address] [place] [address] [place], [id number] , [place]. tel: [phone] Referring Provider: Sree Mckinney, [address] [place] [address], [address]. tel:[phone] OFFICE/OUTPAT IENT VISIT, [facility], [address] [place] [address], [id number] , [place] tel: [phone] [facility] [place] Abdominal pain (chief complaint) Causalgia of left lower limb Sep- 3 Yanez Kaylie. [address] [place] [address], [id number] , [place]. tel: [phone] Referring Provider: Sree Mckinney, [address] [place] [address], [address]. tel:[phone] OFFICE/OUTPAT IENT VISIT, [facility], [address] [place] [address], [id number] , [place] tel: [phone] [facility] Abdominal pain (chief complaint) Causalgia of left lower limb Sep- 3 Yanez Kaylie. [address] [place] [address], [id number] , [place]. tel: [id number] Referring Provider: Sree Mckinney, [address] [place] [address], [address]. tel:[phone] OFFICE/OUTPAT IENT VISIT, [facility], [address] [place] [address], [id number] , [place] tel: [phone] [facility] Abdominal pain (chief complaint) Causalgia of left lower limbOther intervertebral disc degeneration, lumbar regionOther muscle spasmMyalgia, other siteGeneralized abdominal painStrain of fascia of abdomen, sequelaLong term (current) use of opiate analgesicOther assisted (current) drug therapy Sep-0 3 Carol Parkinson. [place], [address] [place], [address], [place]. tel: [phone] Referring Provider: Sree Mckinney, [address] [place] [address], [address]. tel:[phone] [facility], [address] [place] [address], [id number] , [place] tel:[phone] [facility] [place] Causalgia of left lower limb Fe-2 2-202 3 Medina Dan. [place], [address] [place], [address], [place]. [phone] Referring Provider: Sree Mckinney, [address] [place] [address], [address]. tel:[phone] [facility], [address] [place] [address], [id number] , [place] [phone] [facility] [place] Causalgia of left lower limb 3 Eloise Simonw. [address] [place], [place], [id number] , [place]. [phone] Referring Provider: Sree Mckinney, [address] [place] [address], [address]. tel:[phone] OFFICE VISIT, [facility], [address] [place] [address], [id number] , [place] [phone] [facility] Abdominal pain (chief complaint) Causalgia of left lower limbOther intervertebral disc degeneration, lumbar regionOther muscle spasmMyalgia, other siteGeneralized abdominal painStrain of fascia of abdomen, sequelaLong term (current) use of opiate analgesicOther assisted (current) drug therapy 3 Medina Iggy. [place], [address] [place], [address], [place]. [phone] OFFICE/OUTPAT IENT VISIT, [facility], [address] [place] [address], [id number] , [place] [phone] [facility] Abdominal pain (chief complaint) Causalgia of left lower limbOther intervertebral disc degeneration, lumbar regionOther muscle spasmMyalgia, other siteGeneralized abdominal painStrain of fascia of abdomen, sequelaLong term (current) use of opiate analgesicOther assisted (current) drug therapyEncounter for screening for other disorder 3 Carol [place], [address] [place], [address], [place]. tel: [phone] Referring Provider: Sree Mckinney, [address] [place] [address], [address]. tel:[phone] [facility], [address] [place] [address], [id number] , [place] tel: [phone] [facility] No Information 3 Carol Parkinson. [place], [address], [place], [address], [place]. tel: [phone] [facility], [address] [place] [address], [id number] , [place] tel: [phone] [facility] Causalgia of left lower limbGeneralized abdominal pain 2 [address] [place] [address] 100, [place], [place], [id number] , [place]. tel: [phone] Referring Provider: Sree Mckinney, [address] [place] [address], [address]. tel: [phone] [facility], [address] [place] [address], [id number] , [place] tel: [phone] [facility] No Information [id number] [place] [address] [address], [place], [place], [id number] , [place]. tel: [phone] Referring Provider: Sree Mckinney, [address] [place] [address], [address]. tel:[phone] [facility], [address] [place] [address], [id number] , [place] tel: [phone] [facility] Causalgia of left lower limb 2 Eloise Balbuena. [address] [place] [address], [id number] , [place]. tel: [phone] Referring Provider: Sree Mckinney, [address] [place] [address], [address]. tel:[phone] [facility], [address] [place] [address], [id number] , [place] [phone] [facility] Other intervertebral disc degeneration, lumbar region 2 Eloise Balbuena. [address] [place] [address], [id number] , [place]. tel:[phone] Referring Provider: Sree Mckinney, [address] [place] [address], [address]. [phone] OFFICE/OUTPAT IENT VISIT, [facility], [address] [place] [address], [id number] , [place] [phone] [facility] Abdominal pain (chief complaint) Causalgia of left lower limbOther muscle spasmMyalgia, other siteGeneralized abdominal painStrain of fascia of abdomen, sequelaLong term (current) use of opiate analgesicOther assisted (current) drug therapyOther intervertebral disc degeneration, lumbar region 2 Medina Iggy. [place], [address] [place], [address], [place]. tel:[phone] Referring Provider: Sree Mckinney, [address] [place] [address], [address]. [phone] Psych Dx Eval [facility], [address] [place] [address], [id number] , [place] tel:[phone] Telehealth Pain disorder with related psychological factorsAnxiety disorder 2 Eleni Astudillo Peg. [address] [place] [address], [id number] , [place]. tel:[phone] Referring Provider: Sree Mckinney, [address] [place] [address], [address]. [phone] [facility], [address] [place] [address], [id number] , [place] tel:[phone] [facility] Causalgia of left lower limb 2 Medina Iggy. [place], [address] [place], [address], [place]. tel:[phone] OFFICE/OUTPAT IENT VISIT, [facility], [address] [place] [address], [id number] , [place] tel:[phone] [facility] Abdominal pain (chief complaint) Other intervertebral disc degeneration, thoracolumbar regionOther muscle spasmMyalgia, other siteGeneralized abdominal painLong term (current) use of opiate analgesicOther assisted (current) drug therapyStrain of fascia of abdomen, sequelaCausalgia of left lower limb Nov-0 2 Yanez Kaylie. [address] [place] [address], [id number] , [place]. tel:[phone] Referring Provider: Sree Mckinney, [address] [place] [address], [address]. [phone] OFFICE/OUTPAT IENT VISIT, [facility], [address] [place] [address], [id number] , [place] tel:[phone] [facility] Abdominal pain (chief complaint) Other intervertebral disc degeneration, thoracolumbar regionOther muscle spasmMyalgia, other siteGeneralized abdominal painLong term (current) use of opiate analgesicOther computer terminal operator (current) drug therapyStrain of fascia of abdomen, initial encounter 2 Carol Cuevas [place], [address] [place], [address], [place]. tel:[phone] Referring Provider: Sree Mckinney, [address] [place] [address], [address]. [phone] [facility], [address] [place] [address], [id number] , [place] tel:[phone] [facility] Generalized abdominal pain Sep-2 2 Yanez Kaylie. [address] [place] [address], [id number] , [place]. tel:[phone] Referring Provider: Sree Mckinney, [address] [place] [address], [address]. [phone] [facility], [address] [place] [address], [id number] , [place] tel:[phone] [facility] Generalized abdominal pain Sep-1 2 Medina Iggy. [place], [address] [place], [address], [place]. [phone] [facility], [address] [place] [address], [id number] , [place] tel:[phone] [facility] Generalized abdominal pain Sep-1 2 Yanez Kaylie. [address] [place] [address], [id number] , [place]. tel:[phone] Referring Provider: Sree Mckinney, [address] [place] [address], [address]. [phone] OFFICE/OUTPAT IENT VISIT, [facility], [address] [place] [address], [id number] , [place] tel:[phone] [facility] Abdominal pain (chief complaint) Generalized abdominal painLong term (current) use of opiate analgesicOther computer terminal operator (current) drug therapyOther intervertebral disc degeneration, thoracolumbar regionOther muscle spasmMyalgia, other site Sep-0 2 Medina Iggy. [place], [address] [place], [address], [place]. [phone] Referring Provider: Sree Mckinney, [address] [place] [address], [address]. [phone] [facility], [address] [place] [address], [id number] , [place] [phone] [facility] Generalized abdominal pain Aug-3 2 Yanez Kaylie. [address] [place] [address], [id number] , [place]. [phone] Referring Provider: Sree Mckinney, [address] [place] [address], [address]. [phone] [facility], [address] [place] [address], [id number] , [place] [phone] [facility] Generalized abdominal pain Aug-2 2 Medinamer Parkinson. [place], [address] [place], [address], [place]. tel:[phone] [facility], [address] [place] [address], [id number] , [place] [phone] [facility] [place] Generalized abdominal pain 2 Yanez Kaylie. [address] [place] [address], [id number] , [place]. tel:[phone] Referring Provider: Sree Mckinney, [address] [place] [address], [address]. [phone] OFFICE/OUTPAT IENT VISIT, [facility], [address] [place] [address], [id number] , [place] [phone] [facility] Abdominal pain (chief complaint) Other intervertebral disc degeneration, thoracolumbar regionOther muscle spasmMyalgia, other siteGeneralized abdominal painLong term (current) use of opiate analgesicOther assisted (current) drug therapy 2 Carol Parkinson. [place], [address] [place], [address], [place]. [phone] Referring Provider: Sree Mckinney, [address] [place] [address], [address]. [phone] [facility], [address] [place] [address], [id number] , [place] [phone] [facility] Generalized abdominal pain 2 Yanez Kaylie. [address] [place] [address], [id number] , [place]. [phone] Referring Provider: Sree Mckinney, [address] [place] [address], [address]. tel:[phone] OFFICE/OUTPAT IENT VISIT, [facility], [address] [place] [address], [id number] , [place] [phone] [facility] Abdominal pain (chief complaint) Other intervertebral disc degeneration, thoracolumbar regionOther muscle spasmMyalgia, other siteGeneralized abdominal painLong term (current) use of opiate analgesicOther computer terminal operator (current) drug therapy Jan- 2 Medina Dan. [place], [address] [place], [address], [place]. tel:[phone] Referring Provider: Sree Mckinney, [address] [place] [address], [address]. tel:[phone] OFFICE/OUTPAT IENT VISIT, [facility], [address] [place] [address], [id number] , [place] [phone] [facility] Abdominal pain (chief complaint) Other intervertebral disc degeneration, thoracolumbar regionOther muscle spasmMyalgia, other siteGeneralized abdominal painOther computer terminal operator (current) drug therapyLong term (current) use of opiate analgesic 2 Medina Dan. [place], [address] [place], [address], [place]. [phone] Referring Provider: Sree Mckinney, [address] [place] [address], [address]. [phone] [facility], [address] [place] [address], [id number] , [place] tel:[phone] [facility] Generalized abdominal pain November- 2 Jenn Lopez. [facility], [address] [facility] [address] [facility] [address], [place], [address], [place]. tel:[phone] Referring Provider: Sree Mckinney, [address] [place] [address], [address]. [phone] [facility], [address] [place] [address], [id number] , [place] [phone] [facility] Generalized abdominal pain November- 2 Carol [place], [address] [place], [address], [place]. tel:[phone] OFFICE/OUTPAT IENT VISIT, EST [facility], [address] [place], [place], [id number] , [place] tel: [phone] [facility] Abdominal pain (chief complaint) Generalized abdominal painOther assisted (current) drug therapyOther muscle spasmMyalgia, other siteOther intervertebral disc degeneration, thoracolumbar region 2 Carol Parkinson. [place], [facility] [address], [place], [address], [place]. tel:[phone] Referring Provider: Sree Mckinney, [address] [place], [address]. [phone] [facility], [address] [place] [address], [id number] , [place] tel:[phone] [facility] Generalized abdominal pain 2 Barajas John. [facility], [address] [facility] [address], [place], [address], [place]. tel:[phone] Referring Provider: Kiki Ashton [facility] [address] [place], [address]. [phone] [facility], [address] [place] [address], [id number] , [place] tel:[phone] [facility] Generalized abdominal pain 2 Mlaini Gloria. [address], [place], [id number] , [place]. tel:[phone] OFFICE/OUTPAT IENT VISIT, [facility], [address] [place] [address], [id number] , [place] tel: [phone] [facility] Abdominal pain (chief complaint) Generalized abdominal painEncounter for screening for other disorderOther computer terminal operator (current) drug therapyOther muscle spasmMyalgia, other siteOther intervertebral disc degeneration, thoracolumbar region 2 Nyserafinsa Gloria. [address], [place], [id number] , [place]. tel:[phone] Referring Provider: Kiki Ashton [facility] [address], [place], [address]. tel:[phone] Family History Family Member Type Diagnosis Age At Onset Father Problem bulging disc in back Payers Payer name Insurance type Covered alliance party ID Babak meyer(s) Nasir Davsi BL [id number] Social History Type Description Quantity Date Captured Comments Sex Male Smoking Status No Information Chief Complaint And Reason For Visit No Information Reason For Referral Reason For Referral No Information Plan Of Treatment Date Type Action Status Goal ALT (SGPT). Due on due Goal VACATION PLANNER Scanned. Due on due Goal UDT. Due on due Goal AST (SGOT). Due on due Goal REGISTERED MEDICAL TRANSCRIPTIONIST Paperwork. Due on due Goal OARS. Due on due Goal Creatinine. Due on due Goal Order Annual PT. Due on due Goal PHQ-9. Due on du e Goal Height. Due on d ue Goal Update Social History. Due o n due Goal Review Allergy List. Due on due Goal Tobacco Use. Due on due Goal Medication Reconciliation. D ue on due Goal Weight. Due on d ue Goal Hepatitis C screening. Due o n due Goal Unhealthy drug use screening . Due on due Goal REGISTERED MEDICAL TRANSCRIPTIONIST Paperwork. Due on due Goal OARS. Due on due Goal UDT. Due on due Goal VACATION PLANNER Scanned. Due on due Goal AST (SGOT). Due on due Goal ALT (SGPT). Due on due Goal Creatinine. Due on due Goal Order Annual PT. Due on due Goal PHQ-9. Due on du e Goal Unhealthy drug use screening . Due on due Goal Hepatitis C screening. Due o n due Goal Tobacco Use. Due on due Goal Review Allergy List. Due on due Goal Medication Reconciliation. D ue on due Goal Update Social History. Due o n due Goal Weight. Due on d ue Goal Height. Due on d ue Goal REGISTERED MEDICAL TRANSCRIPTIONIST Paperwork. Due on due Goal VACATION PLANNER Scanned. Due on due Goal ALT (SGPT). Due on due Goal UDT. Due on due Goal OARS. Due on due Goal AST (SGOT). Due on due Goal Order Annual PT. Due on due Goal Creatinine. Due on due Goal Medication Reconciliation. D ue on due Goal PHQ-9. Due on du e Goal Weight. Due on d ue Goal Height. Due on d ue Goal Unhealthy drug use screening . Due on due Goal Update Social History. Due o n due Goal Tobacco Use. Due on due Goal Review Allergy List. Due on due Goal Hepatitis C screening. Due o n due Goal UDT. Due on due Goal Creatinine. Due on due Goal Order Annual PT. Due on due Goal PHQ-9. Due on du e Goal OARS. Due on due Goal Weight. Due on d ue Goal REGISTERED MEDICAL TRANSCRIPTIONIST Paperwork. Due on due Goal AST (SGOT). Due on due Goal VACATION PLANNER Scanned. Due on due Goal Hepatitis C screening. Due o n due Goal ALT (SGPT). Due on due Goal Medication Reconciliation. D ue on due Goal Tobacco Use. Due on due Goal Update Social History. Due o n due Goal Review Allergy List. Due on due Goal Height. Due on d ue Goal Unhealthy drug use screening . Due on due Goal Order Annual PT. Due on due Goal VACATION PLANNER Scanned. Due on due Goal REGISTERED MEDICAL TRANSCRIPTIONIST Paperwork. Due on due Goal UDT. Due on due Goal AST (SGOT). Due on due Goal OARS. Due on due Goal Creatinine. Due on due Goal ALT (SGPT). Due on due Goal Hepatitis C screening. Due o n due Goal Update Social History. Due o n due Goal Medication Reconciliation. D ue on due Goal Review Allergy List. Due on due Goal PHQ-9. Due on du e Goal Height. Due on d ue Goal Tobacco Use. Due on due Goal Weight. Due on d ue Goal Unhealthy drug use screening . Due on due Goal Creatinine. Due on due Goal ALT (SGPT). Due on due Goal Order Annual PT. Due on due Goal Hepatitis C screening. Due o n due Goal OARS. Due on due Goal VACATION PLANNER Scanned. Due on due Goal Review Allergy List. Due on due Goal Tobacco Use. Due on due Goal REGISTERED MEDICAL TRANSCRIPTIONIST Paperwork. Due on due Goal Unhealthy drug use screening . Due on due Goal AST (SGOT). Due on due Goal Height. Due on d ue Goal PHQ-9. Due on du e Goal Weight. Due on d ue Goal Update Social History. Due o n due Goal Medication Reconciliation. D ue on due Goal UDT. Due on due Goal UDT. Due on due Goal VACATION PLANNER Scanned. Due on due Goal Weight. Due on d ue Goal Tobacco Use. Due on due Goal Height. Due on d ue Goal Update Social History. Due o n due Goal Unhealthy drug use screening . Due on due Goal Review Allergy List. Due on due Goal AST (SGOT). Due on due Goal Medication Reconciliation. D ue on due Goal Hepatitis C screening. Due o n due Goal ALT (SGPT). Due on due Goal PHQ-9. Due on du e Goal Order Annual PT. Due on due Goal REGISTERED MEDICAL TRANSCRIPTIONIST Paperwork. Due on due Goal Creatinine. Due on due Goal OARS. Due on due Goal VACATION PLANNER Scanned. Due on due Goal ALT (SGPT). Due on due Goal AST (SGOT). Due on due Goal Creatinine. Due on due Goal OARS. Due on due Goal Medication Reconciliation. D ue on due Goal PHQ-9. Due on du e Goal REGISTERED MEDICAL TRANSCRIPTIONIST Paperwork. Due on due Goal Hepatitis C screening. Due o n due Goal UDT. Due on due Goal Update Social History. Due o n due Goal Order Annual PT. Due on due Goal Tobacco Use. Due on due Goal Review Allergy List. Due on due Goal Height. Due on d ue Goal Unhealthy drug use screening . Due on due Goal Weight. Due on d ue Goal VACATION PLANNER Scanned. Due on due Goal ALT (SGPT). Due on due Goal Update Social History. Due o n due Goal Creatinine. Due on due Goal Order Annual PT. Due on due Goal Hepatitis C screening. Due o n due Goal Unhealthy drug use screening . Due on due Goal AST (SGOT). Due on due Goal Height. Due on d ue Goal Medication Reconciliation. D ue on due Goal OARS. Due on due Goal PHQ-9. Due on du e Goal UDT. Due on due Goal Review Allergy List. Due on due Goal REGISTERED MEDICAL TRANSCRIPTIONIST Paperwork. Due on due Goal Weight. Due on d ue Goal Tobacco Use. Due on due Goal ALT (SGPT). Due on due Goal AST (SGOT). Due on due Goal Weight. Due on d ue Goal Tobacco Use. Due on due Goal UDT. Due on due Goal Creatinine. Due on due Goal OARS. Due on due Goal Order Annual PT. Due on due Goal REGISTERED MEDICAL TRANSCRIPTIONIST Paperwork. Due on due Goal VACATION PLANNER Scanned. Due on due Goal Medication Reconciliation. D ue on due Goal Update Social History. Due o n due Goal Review Allergy List. Due on due Goal PHQ-9. Due on du e Goal Unhealthy drug use screening . Due on due Goal Height. Due on d ue Goal Hepatitis C screening. Due o n due Goal UDT. Due on due Goal Hepatitis C screening. Due o n due Goal REGISTERED MEDICAL TRANSCRIPTIONIST Paperwork. Due on due Goal Tobacco Use. Due on due Goal Creatinine. Due on due Goal Update Social History. Due o n due Goal ALT (SGPT). Due on due Goal OARS. Due on due Goal Height. Due on d ue Goal Unhealthy drug use screening . Due on due Goal Order Annual PT. Due on due Goal Weight. Due on d ue Goal Review Allergy List. Due on due Goal VACATION PLANNER Scanned. Due on due Goal Medication Reconciliation. D ue on due Goal AST (SGOT). Due on due Goal PHQ-9. Due on du e Goal Creatinine. Due on due Goal Review Allergy List. Due on due Goal Order Annual PT. Due on due Goal AST (SGOT). Due on due Goal UDT. Due on due Goal Tobacco Use. Due on due Goal Height. Due on d ue Goal PHQ-9. Due on du e Goal Update Social History. Due o n due Goal Unhealthy drug use screening . Due on due Goal VACATION PLANNER Scanned. Due on due Goal OARS. Due on due Goal Medication Reconciliation. D ue on due Goal Weight. Due on d ue Goal ALT (SGPT). Due on due Goal Hepatitis C screening. Due o n due Goal REGISTERED MEDICAL TRANSCRIPTIONIST Paperwork. Due on due Goal AST (SGOT). Due on due Goal ALT (SGPT). Due on due Goal Update Social History. Due o n due Goal Unhealthy drug use screening . Due on due Goal Order Annual PT. Due on due Goal Height. Due on d ue Goal OARS. Due on due Goal REGISTERED MEDICAL TRANSCRIPTIONIST Paperwork. Due on due Goal UDT. Due on due Goal Review Allergy List. Due on due Goal Medication Reconciliation. D ue on due Goal Tobacco Use. Due on due Goal PHQ-9. Due on du e Goal Creatinine. Due on due Goal Weight. Due on d ue Goal Hepatitis C screening. Due o n due Goal VACATION PLANNER Scanned. Due on due Goal Order Annual PT. Due on due Goal Creatinine. Due on due Goal REGISTERED MEDICAL TRANSCRIPTIONIST Paperwork. Due on due Goal OARS. Due on due Goal ALT (SGPT). Due on due Goal VACATION PLANNER Scanned. Due on due Goal UDT. Due on due Goal AST (SGOT). Due on due Goal Unhealthy drug use screening . Due on due Goal Medication Reconciliation. D ue on due Goal Hepatitis C screening. Due o n due Goal Review Allergy List. Due on due Goal Weight. Due on d ue Goal Tobacco Use. Due on due Goal PHQ-9. Due on du e Goal Update Social History. Due o n due Goal Height. Due on d ue Goal ALT (SGPT). Due on due Goal Order Annual PT. Due on due Goal Creatinine. Due on due Goal UDT. Due on due Goal OARS. Due on due Goal AST (SGOT). Due on due Goal VACATION PLANNER Scanned. Due on due Goal REGISTERED MEDICAL TRANSCRIPTIONIST Paperwork. Due on due Goal Review Allergy List. Due on due Goal Hepatitis C screening. Due o n due Goal Tobacco Use. Due on due Goal Update Social History. Due o n due Goal Height. Due on d ue Goal Medication Reconciliation. D ue on due Goal PHQ-9. Due on du e Goal Weight. Due on d ue Goal Unhealthy drug use screening . Due on due Goal UDT. Due on due Goal Review Allergy List. Due on due Goal PHQ-9. Due on du e Goal Medication Reconciliation. D ue on due Goal REGISTERED MEDICAL TRANSCRIPTIONIST Paperwork. Due on due Goal Tobacco Use. Due on due Goal OARS. Due on due Goal ALT (SGPT). Due on due Goal Height. Due on d ue Goal Hepatitis C screening. Due o n due Goal Creatinine. Due on due Goal AST (SGOT). Due on due Goal Update Social History. Due o n due Goal VACATION PLANNER Scanned. Due on due Goal Weight. Due on d ue Goal Order Annual PT. Due on due Goal Unhealthy drug use screening . Due on due Goal REGISTERED MEDICAL TRANSCRIPTIONIST Paperwork. Due on due Goal OARS. Due on due Goal ALT (SGPT). Due on due Goal VACATION PLANNER Scanned. Due on due Goal Order Annual PT. Due on due Goal AST (SGOT). Due on due Goal Creatinine. Due on due Goal UDT. Due on due Goal Hepatitis C screening. Due o n due Goal Review Allergy List. Due on due Goal Unhealthy drug use screening . Due on due Goal Update Social History. Due o n due Goal Tobacco Use. Due on due Goal Medication Reconciliation. D ue on due Goal Height. Due on d ue Goal PHQ-9. Due on du e Goal Weight. Due on d ue Goal Medication Reconciliation. D ue on due Goal UDT. Due on due Goal REGISTERED MEDICAL TRANSCRIPTIONIST Paperwork. Due on due Goal Weight. Due on d ue Goal Creatinine. Due on due Goal Tobacco Use. Due on due Goal Review Allergy List. Due on due Goal Unhealthy drug use screening . Due on due Goal OARS. Due on due Goal PHQ-9. Due on du e Goal ALT (SGPT). Due on due Goal Update Social History. Due o n due Goal VACATION PLANNER Scanned. Due on due Goal Hepatitis C screening. Due o n due Goal Order Annual PT. Due on due Goal Height. Due on d ue Goal AST (SGOT). Due on due Goal UDT. Due on due Goal Hepatitis C screening. Due o n due Goal Unhealthy drug use screening . Due on due Goal REGISTERED MEDICAL TRANSCRIPTIONIST Paperwork. Due on due Goal Review Allergy List. Due on due Goal VACATION PLANNER Scanned. Due on 023 due Goal Weight. Due on d ue Goal Order Annual PT. Due on due Goal Height. Due on d ue Goal OARS. Due on due Goal ALT (SGPT). Due on due Goal Update Social History. Due o n due Goal PHQ-9. Due on du e Goal Medication Reconciliation. D ue on due Goal Creatinine. Due on due Goal AST (SGOT). Due on due Goal Tobacco Use. Due on due Goal PHQ-9. Due on du e Goal Height. Due on d ue Goal Creatinine. Due on due Goal REGISTERED MEDICAL TRANSCRIPTIONIST Paperwork. Due on due Goal UDT. Due on due Goal Medication Reconciliation. D ue on due Goal Hepatitis C screening. Due o n due Goal Tobacco Use. Due on due Goal ALT (SGPT). Due on due Goal Weight. Due on d ue Goal Unhealthy drug use screening . Due on due Goal AST (SGOT). Due on due Goal Update Social History. Due o n due Goal Order Annual PT. Due on due Goal OARS. Due on due Goal VACATION PLANNER Scanned. Due on 023 due Goal Review Allergy List. Due on due Goal Medication Reconciliation. D ue on due Goal VACATION PLANNER Scanned. Due on 023 due Goal AST (SGOT). Due on due Goal Weight. Due on d ue Goal Update Social History. Due o n due Goal REGISTERED MEDICAL TRANSCRIPTIONIST Paperwork. Due on due Goal Height. Due on d ue Goal Order Annual PT. Due on due Goal Hepatitis C screening. Due o n due Goal PHQ-9. Due on du e Goal Tobacco Use. Due on 023 due Goal Unhealthy drug use screening . Due on due Goal OARS. Due on due Goal UDT. Due on due Goal Creatinine. Due on due Goal Review Allergy List. Due on due Goal ALT (SGPT). Due on due Goal Order Annual PT. Due on due Goal ALT (SGPT). Due on due Goal Medication Reconciliation. D ue on due Goal Review Allergy List. Due on due Goal VACATION PLANNER Scanned. Due on due Goal OARS. Due on due Goal UDT. Due on due Goal Height. Due on d ue Goal Hepatitis C screening. Due o n due Goal Tobacco Use. Due on due Goal AST (SGOT). Due on due Goal Update Social History. Due o n due Goal Unhealthy drug use screening . Due on due Goal Weight. Due on d ue Goal Creatinine. Due on due Goal REGISTERED MEDICAL TRANSCRIPTIONIST Paperwork. Due on due Goal PHQ-9. Due on du e Goal AST (SGOT). Due on due Goal Unhealthy drug use screening . Due on due Goal OARS. Due on due Goal Order Annual PT. Due on due Goal VACATION PLANNER Scanned. Due on due Goal Weight. Due on d ue Goal PHQ-9. Due on du e Goal REGISTERED MEDICAL TRANSCRIPTIONIST Paperwork. Due on due Goal UDT. Due on due Goal Creatinine. Due on due Goal Review Allergy List. Due on due Goal Height. Due on d ue Goal Update Social History. Due o n due Goal ALT (SGPT). Due on due Goal Medication Reconciliation. D ue on due Goal Hepatitis C screening. Due o n due Goal Tobacco Use. Due on due Goal Update Social History. Due o n due Goal REGISTERED MEDICAL TRANSCRIPTIONIST Paperwork. Due on due Goal OARS. Due on due Goal PHQ-9. Due on du e Goal Order Annual PT. Due on due Goal Unhealthy drug use screening . Due on due Goal VACATION PLANNER Scanned. Due on due Goal Height. Due on d ue Goal Creatinine. Due on due Goal ALT (SGPT). Due on due Goal Review Allergy List. Due on due Goal Weight. Due on d ue Goal UDT. Due on due Goal Hepatitis C screening. Due o n due Goal AST (SGOT). Due on due Goal Medication Reconciliation. D ue on due Goal Tobacco Use. Due on due Goal Weight. Due on d ue Goal OARS. Due on due Goal Medication Reconciliation. D ue on due Goal REGISTERED MEDICAL TRANSCRIPTIONIST Paperwork. Due on due Goal UDT. Due on due Goal ALT (SGPT). Due on due Goal VACATION PLANNER Scanned. Due on due Goal Unhealthy drug use screening . Due on due Goal Order Annual PT. Due on due Goal AST (SGOT). Due on due Goal Creatinine. Due on due Goal Review Allergy List. Due on due Goal PHQ-9. Due on du e Goal Hepatitis C screening. Due o n due Goal Tobacco Use. Due on due Goal Update Social History. Due o n due Goal Height. Due on d ue Goal OARS. Due on due Goal UDT. Due on due Goal VACATION PLANNER Scanned. Due on due Goal ALT (SGPT). Due on due Goal REGISTERED MEDICAL TRANSCRIPTIONIST Paperwork. Due on due Goal AST (SGOT). Due on due Goal Order Annual PT. Due on due Goal Creatinine. Due on due Goal Tobacco Use. Due on due Goal Medication Reconciliation. D ue on due Goal PHQ-9. Due on du e Goal Height. Due on d ue Goal Unhealthy drug use screening . Due on due Goal Weight. Due on d ue Goal Hepatitis C screening. Due o n due Goal Review Allergy List. Due on due Goal Update Social History. Due o n due Goal PHQ-9. Due on du e Goal Hepatitis C screening. Due o n due Goal OARS. Due on due Goal Height. Due on d ue Goal UDT. Due on due Goal Tobacco Use. Due on 023 due Goal VACATION PLANNER Scanned. Due on 023 due Goal Weight. Due on d ue Goal AST (SGOT). Due on due Goal Order Annual PT. Due on due Goal Update Social History. Due o n due Goal ALT (SGPT). Due on due Goal REGISTERED MEDICAL TRANSCRIPTIONIST Paperwork. Due on due Goal Unhealthy drug use screening . Due on due Goal Medication Reconciliation. D ue on due Goal Creatinine. Due on due Goal Review Allergy List. Due on due Goal REGISTERED MEDICAL TRANSCRIPTIONIST Paperwork. Due on due Goal UDT. Due on due Goal PHQ-9. Due on du e Goal Tobacco Use. Due on due Goal Unhealthy drug use screening . Due on due Goal Hepatitis C screening. Due o n due Goal OARS. Due on due Goal Weight. Due on d ue Goal Height. Due on d ue Goal Update Social History. Due o n due Goal ALT (SGPT). Due on due Goal Review Allergy List. Due on due Goal VACATION PLANNER Scanned. Due on due Goal Medication Reconciliation. D ue on due Goal Creatinine. Due on due Goal AST (SGOT). Due on due Goal Order Annual PT. Due on due Goal UDT. Due on due Goal ALT (SGPT). Due on due Goal Order Annual PT. Due on due Goal OARS. Due on due Goal REGISTERED MEDICAL TRANSCRIPTIONIST Paperwork. Due on due Goal Creatinine. Due on due Goal AST (SGOT). Due on due Goal VACATION PLANNER Scanned. Due on due Goal PHQ-9. Due on du e Goal Review Allergy List. Due on due Goal Medication Reconciliation. D ue on due Goal Tobacco Use. Due on due Goal Weight. Due on d ue Goal Update Social History. Due o n due Goal Height. Due on d ue Goal Unhealthy drug use screening . Due on due Goal Hepatitis C screening. Due o n due Goal REGISTERED MEDICAL TRANSCRIPTIONIST Paperwork. Due on due Goal ALT (SGPT). Due on due Goal UDT. Due on due Goal AST (SGOT). Due on due Goal Review Allergy List. Due on due Goal Creatinine. Due on due Goal Weight. Due on d ue Goal PHQ-9. Due on du e Goal Hepatitis C screening. Due o n due Goal OARS. Due on due Goal Height. Due on d ue Goal Unhealthy drug use screening . Due on due Goal Medication Reconciliation. D ue on due Goal Order Annual PT. Due on due Goal Tobacco Use. Due on due Goal Update Social History. Due o n due Goal VACATION PLANNER Scanned. Due on due Goal Weight. Due on d ue Goal Hepatitis C screening. Due o n due Goal AST (SGOT). Due on due Goal UDT. Due on due Goal REGISTERED MEDICAL TRANSCRIPTIONIST Paperwork. Due on due Goal ALT (SGPT). Due on due Goal VACATION PLANNER Scanned. Due on due Goal Review Allergy List. Due on due Goal Height. Due on d ue Goal Tobacco Use. Due on due Goal Update Social History. Due o n due Goal OARS. Due on due Goal Order Annual PT. Due on due Goal PHQ-9. Due on du e Goal Medication Reconciliation. D ue on due Goal Creatinine. Due on due Goal Unhealthy drug use screening . Due on due Goal Update Social History. Due o n due Goal UDT. Due on due Goal Hepatitis C screening. Due o n due Goal Medication Reconciliation. D ue on due Goal Height. Due on d ue Goal Order Annual PT. Due on due Goal Creatinine. Due on due Goal Tobacco Use. Due on due Goal Review Allergy List. Due on due Goal PHQ-9. Due on du e Goal OARS. Due on due Goal Weight. Due on d ue Goal Unhealthy drug use screening . Due on due Goal AST (SGOT). Due on due Goal VACATION PLANNER Scanned. Due on due Goal ALT (SGPT). Due on due Goal REGISTERED MEDICAL TRANSCRIPTIONIST Paperwork. Due on due Goal Order Annual PT. Due on due Goal AST (SGOT). Due on due Goal Update Social History. Due o n due Goal REGISTERED MEDICAL TRANSCRIPTIONIST Paperwork. Due on due Goal Medication Reconciliation. D ue on due Goal Review Allergy List. Due on due Goal Creatinine. Due on due Goal Hepatitis C screening. Due o n due Goal Height. Due on d ue Goal VACATION PLANNER Scanned. Due on due Goal OARS. Due on due Goal Unhealthy drug use screening . Due on due Goal ALT (SGPT). Due on due Goal UDT. Due on due Goal Weight. Due on d ue Goal Tobacco Use. Due on due Goal PHQ-9. Due on du e Goal Medication Reconciliation. D ue on due Goal Update Social History. Due o n due Goal Height. Due on d ue Goal Unhealthy drug use screening . Due on due Goal REGISTERED MEDICAL TRANSCRIPTIONIST Paperwork. Due on due Goal Weight. Due on d ue Goal VACATION PLANNER Scanned. Due on due Goal Order Annual PT. Due on due Goal Creatinine. Due on due Goal UDT. Due on due Goal Tobacco Use. Due on due Goal ALT (SGPT). Due on due Goal PHQ-9. Due on du e Goal Review Allergy List. Due on due Goal OARS. Due on due Goal Hepatitis C screening. Due o n due Goal AST (SGOT). Due on due Goal UDT. Due on due Goal OARS. Due on due Goal Creatinine. Due on due Goal REGISTERED MEDICAL TRANSCRIPTIONIST Paperwork. Due on due Goal Order Annual PT. Due on due Goal Review Allergy List. Due on due Goal VACATION PLANNER Scanned. Due on due Goal AST (SGOT). Due on due Goal PHQ-9. Due on du e Goal Height. Due on d ue Goal Unhealthy drug use screening . Due on due Goal Update Social History. Due o n due Goal ALT (SGPT). Due on due Goal Hepatitis C screening. Due o n due Goal Tobacco Use. Due on due Goal Weight. Due on d ue Goal Medication Reconciliation. D ue on due Goal Creatinine. Due on due Goal UDT. Due on due Goal OARS. Due on due Goal AST (SGOT). Due on due Goal VACATION PLANNER Scanned. Due on due Goal Order Annual PT. Due on due Goal REGISTERED MEDICAL TRANSCRIPTIONIST Paperwork. Due on due Goal ALT (SGPT). Due on due Goal Review Allergy List. Due on due Goal Medication Reconciliation. D ue on due Goal Unhealthy drug use screening . Due on due Goal Tobacco Use. Due on 022 due Goal Weight. Due on d ue Goal Update Social History. Due o n due Goal Height. Due on d ue Goal Hepatitis C screening. Due o n due Goal PHQ-9. Due on du e Goal UDT. Due on due Goal ALT (SGPT). Due on due Goal Unhealthy drug use screening . Due on due Goal PHQ-9. Due on du e Goal Height. Due on d ue Goal AST (SGOT). Due on due Goal Creatinine. Due on due Goal Weight. Due on d ue Goal OARS. Due on due Goal REGISTERED MEDICAL TRANSCRIPTIONIST Paperwork. Due on due Goal Order Annual PT. Due on due Goal Update Social History. Due o n due Goal Review Allergy List. Due on due Goal Medication Reconciliation. D ue on due Goal VACATION PLANNER Scanned. Due on due Goal Hepatitis C screening. Due o n due Goal Tobacco Use. Due on due Goal Creatinine. Due on due Goal ALT (SGPT). Due on due Goal UDT. Due on due Goal VACATION PLANNER Scanned. Due on due Goal Order Annual PT. Due on due Goal REGISTERED MEDICAL TRANSCRIPTIONIST Paperwork. Due on due Goal OARS. Due on due Goal Tobacco Use. Due on due Goal Height. Due on d ue Goal AST (SGOT). Due on due Goal PHQ-9. Due on du e Goal Unhealthy drug use screening . Due on due Goal Update Social History. Due o n due Goal Hepatitis C screening. Due o n due Goal Medication Reconciliation. D ue on due Goal Weight. Due on d ue Goal Review Allergy List. Due on due Goal Update Social History. Due o n due Goal AST (SGOT). Due on due Goal Unhealthy drug use screening . Due on due Goal ALT (SGPT). Due on due Goal Order Annual PT. Due on due Goal REGISTERED MEDICAL TRANSCRIPTIONIST Paperwork. Due on due Goal Review Allergy List. Due on due Goal Hepatitis C screening. Due o n due Goal Medication Reconciliation. D ue on due Goal Tobacco Use. Due on due Goal Creatinine. Due on due Goal UDT. Due on due Goal PHQ-9. Due on du e Goal Weight. Due on d ue Goal VACATION PLANNER Scanned. Due on due Goal Height. Due on d ue Goal OARS. Due on due Goal UDT. Due on due Goal REGISTERED MEDICAL TRANSCRIPTIONIST Paperwork. Due on due Goal Medication Reconciliation. D ue on due Goal Unhealthy drug use screening . Due on due Goal VACATION PLANNER Scanned. Due on due Goal Update Social History. Due o n due Goal Creatinine. Due on due Goal Review Allergy List. Due on due Goal Weight. Due on d ue Goal Order Annual PT. Due on due Goal PHQ-9. Due on du e Goal AST (SGOT). Due on due Goal Height. Due on d ue Goal Tobacco Use. Due on due Goal ALT (SGPT). Due on due Goal Hepatitis C screening. Due o n due Goal OARS. Due on due Goal PHQ-9. Due on du e Goal Update Social History. Due o n due Goal Tobacco Use. Due on due Goal REGISTERED MEDICAL TRANSCRIPTIONIST Paperwork. Due on due Goal Height. Due on d ue Goal Medication Reconciliation. D ue on due Goal Weight. Due on d ue Goal UDT. Due on due Goal Unhealthy drug use screening . Due on due Goal VACATION PLANNER Scanned. Due on due Goal Creatinine. Due on due Goal OARS. Due on due Goal Order Annual PT. Due on due Goal Review Allergy List. Due on due Goal ALT (SGPT). Due on due Goal AST (SGOT). Due on due Goal Hepatitis C screening. Due o n due Goal AST (SGOT). Due on due Goal ALT (SGPT). Due on due Goal Medication Reconciliation. D ue on due Goal Creatinine. Due on due Goal Unhealthy drug use screening . Due on due Goal Update Social History. Due o n due Goal PHQ-9. Due on du e Goal Hepatitis C screening. Due o n due Goal VACATION PLANNER Scanned. Due on due Goal REGISTERED MEDICAL TRANSCRIPTIONIST Paperwork. Due on due Goal Order Annual PT. Due on due Goal OARS. Due on due Goal Height. Due on d ue Goal UDT. Due on due Goal Tobacco Use. Due on due Goal Review Allergy List. Due on due Goal Weight. Due on d ue Goal Unhealthy drug use screening . Due on due Goal PHQ-9. Due on du e Goal Tobacco Use. Due on due Goal Medication Reconciliation. D ue on due Goal UDT. Due on due Goal Update Social History. Due o n due Goal REGISTERED MEDICAL TRANSCRIPTIONIST Paperwork. Due on due Goal Hepatitis C screening. Due o n due Goal Height. Due on d ue Goal AST (SGOT). Due on due Goal Weight. Due on d ue Goal OARS. Due on due Goal ALT (SGPT). Due on due Goal Creatinine. Due on due Goal Review Allergy List. Due on due Goal VACATION PLANNER Scanned. Due on due Goal Order Annual PT. Due on due Goal Creatinine. Due on due Goal REGISTERED MEDICAL TRANSCRIPTIONIST Paperwork. Due on due Goal VACATION PLANNER Scanned. Due on due Goal Order Annual PT. Due on due Goal AST (SGOT). Due on due Goal UDT. Due on due Goal ALT (SGPT). Due on due Goal OARS. Due on due Goal Unhealthy drug use screening . Due on due Goal Height. Due on d ue Goal Review Allergy List. Due on due Goal Update Social History. Due o n due Goal Tobacco Use. Due on due Goal Hepatitis C screening. Due o n due Goal Weight. Due on d ue Goal PHQ-9. Due on du e Goal Medication Reconciliation. D ue on due Goal Tobacco Use. Due on due Goal Hepatitis C screening. Due o n due Goal Update Social History. Due o n due Goal Review Allergy List. Due on due Goal Weight. Due on d ue Goal Medication Reconciliation. D ue on due Goal PHQ-9. Due on du e Goal Height. Due on d ue Goal Unhealthy drug use screening . Due on due Goal Weight. Due on d ue Goal Height. Due on d ue Goal Unhealthy drug use screening . Due on due Goal Review Allergy List. Due on due Goal Medication Reconciliation. D ue on due Goal Hepatitis C screening. Due o n due Goal Update Social History. Due o n due Goal PHQ-9. Due on du e Goal Tobacco Use. Due on due Goal PHQ-9. Due on du e Goal Weight. Due on d ue Goal Update Social History. Due o n due Goal Height. Due on d ue Goal Review Allergy List. Due on due Goal Tobacco Use. Due on due Goal Medication Reconciliation. D ue on due Goal Medication Reconciliation. D ue on due Goal PHQ-9. Due on du e Goal Weight. Due on d ue Goal Tobacco Use. Due on due Goal Height. Due on d ue Goal Update Social History. Due o n due Goal Review Allergy List. Due on due Goal Review Allergy List. Due on due Goal PHQ-9. Due on du e Goal Height. Due on d ue Goal Weight. Due on d ue Goal Tobacco Use. Due on due Goal Update Social History. Due o n due Goal Medication Reconciliation. D ue on due History Of Present Illness Encounter Date Complaint History Of Presregina nt Illness low back pain Severity level i s 7. The problem is stable. Location of pain is left sided. Additional information: Patient reports 50% relief with pain medications. 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 - He is present here today with his mother who contributed to the discussion of the patient's care. - Chronic low back pain. Pain 03/25. - Notes increased muscle spasms in low back. - Reports benefit with massages for his low back and hip pain. - An [employer] SCS trial was previously ordered for his low back pain. He has not yet scheduled it. He will plan to schedule it during break as he is currently in school. - Chronic abdominal pain. - Notes increased sharp shooting pain in the abdomen. - Currently prescribed [place] 5-325mg MAX 2/day. Presents 1 day short. - Also prescribed Gabapentin, Cyclobenzaprine, and Hydroxyzine with some benefit. - Also notes benefit with medical cannabis.- Denies any side effects with current regimen. - Agreeable to increasing Gabapentin today. low back pain Severity level i s 9. Duration: chronic. The problem is stable. It occurs persistently. Location of pain is lower back and abdominal pain. Symptoms are aggravated by daily activities and overuse. Symptoms are relieved by pain meds/drugs and rest. low back pain Severity level i s 8. Duration: chronic. The problem is worsening. It occurs persistently. The client describes the pain as an ache, burning and sharp. Symptoms are aggravated by ascending stairs, bending, descending stairs, lifting, lying/rest, sitting, twisting, walking, housework, rising and prolonged positioning. Symptoms are relieved by pain meds/drugs and stretching. Comments: Santosh simon in clinic for a follow up in the setting of chronic low back and abdominal pain. He is accompanied by his mom today who contributes to his care. Pain has been worsening in the left lower back and LLE. Pain feels tight and spasming. Pain is worsened with lifting. Has had flared back pain after moving into a new apartment. Now mainly pain toward front left side, and down his left leg. He wouls like to pursue the SCS trial and pursue the implant in June once he is on winter break from school. Also feeling stinging, stabbing pain towards his stomach. Denies relief with abdominal nerve block. Hypogastric nerve block was the most relieving for him. [place] 5-325mg #15 tabs per moth provide 50% pain relief. Medical cannabis topicals provide additional benefit. Also had some relief with Medrol dose ubaldo, but mainly from first round. No other concerns today. low back pain Severity level i s 8. Duration: chronic. The problem is worsening. Location of pain is lower back and lower left abdomen. Comments: Santosh simon virtually via [facility] for a follow up in the setting of chronic low back and abdominal pain. He is accompanied by his mom today who contributes to his care. Pain has been worsening in the left lower back. Has had flared back pain after C-RFW. Now mainly pain toward front left side. Also feeling stinging, stabbing pain towards his stomach. Denies relief with abdominal nerve block. Hypogastric nerve block was the most relieving for him. He found best relief with a menthol spray in the past, but only for low back. Also had some relief with Medrol dose ubaldo, but mainly from first round. MC provided initial relief, but not anymore. Notes valium relaxed him but did not help with muscle tightness or pain. No other concerns today. low back pain Severity level i s 5. Duration: chronic. The problem is improving. Symptoms are relieved by pain meds/drugs. Comments: Santosh drea aurora virtually via [employer] for a follow up in the setting of chronic low back and abdominal pain. He is accompanied by his mom today who contributes to his care. Pain has been worsening in the left lower back.Has not yet completed his MRI but is planning on doing so soon, Notes valium relaxed him but did not help with muscle tightness or pain. Feels that the prednisone, hydroxizine, and hydrocodone provided him significant relief. Has been using medical cannabis, Tylenol, lidocaine patches, and menthol spray with benefit. No other concerns today. low back pain Severity level i s 9. Duration: chronic. The problem is worsening. It occurs persistently. Location of pain is lower back and gluteal area. The client describes the pain as an ache, sharp and ripping. Symptoms are aggravated by ascending stairs, bending, descending stairs, lifting, lying/rest, sitting, standing, twisting, walking, housework, movement, rising from sitting, prolonged positioning and standing on one leg. Symptoms are relieved by menthol spray. Comments: Santosh simon in clinic for a follow up in the setting of chronic low back and abdominal pain. He is joined by his mother during today's visit. Pain has been worsening in the left lower back. S/p Cedeño DRG explant on 10/02/23 with significant improvement to his abdominal pain. His primary pain is now his back. S/p L4-L5, L5-S1 Diagnostic RFW with 90% relief. He felt significant relief and passed this workup. S/p L4-L5, L5-S1 Confirmatory RFW with 60% relief. He has been in a bad pain flare since. Medrol Ubaldo has been used with no benefit. Interested in restarting Houston 5/325mg r/t his flare. Has been using medical cannabis, Tylenol, lidocaine patches, and menthol spray with benefit. Interested in valium and hydroxyzine for the pain flare. Patient is accompanied by his mom today who contributes to his care. No other concerns to note. lumbago Patient is a 23 year old male presenting with complaints of chronic low back and abdominal pain that has been on going for a few years. He notes a long history of digestive issues and currently works with [employer] regarding these symptoms. He had a DRG stimulator implanted to help with his abdominal pain, but this was ultimately explanted due to challenges with the device and lead migration/fracture. He notes that most of his pain at this point is localized to the left aspect of his lumbar spine. He describes his pain as a very deep ache with associated sharp pain. Patient notes no associated weakness. His symptoms are constant at this point. He states that he could be sprinting or sitting and the pain would be the same. Symptoms are somewhat relieved with use of a cryo spray. He has tried multiple different interventions, including physical therapy but has not experienced relief of his spine-specific pain. He notes that his current level of discomfort limits everything he is able to do each day and is currently limiting his overall quality of life. He would like to decrease his overall discomfort to allow him to perform his daily, functional activities with less limitation and an improved quality of life. low back pain Severity level i s 7. Duration: chronic. The problem is worsening. It occurs persistently. Location of pain is lower back and left sided. Comments: Santosh montenegroents for virtual follow up in the setting of chronic low back and abdominal pain. He is joined by his mother during today's visit. Pain has been gradually worsening in the left lower back.S/p Cedeño DRG explant on 10/02/23 with significant improvement to his abdominal pain. His primary pain is now his back. Lower back left side pain described as feeling achy and deep. S/p ganglion impar block on 12/05/23 with minimal relief. States he was sitting a lot during his travels to [place] which caused a lot of his pain to return. Inquires about other options for pain control including an ablation and medical cannabis. Would like to trial a DRFW.He has been off Houston for ~1 month. 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 No other concerns to note. Abdominal pain Severity is 5. D uration is chronic. It occurs constantly. The problem is unchanged. Location is and lower left back. Comments: Santosh simon for virtual follow up in the setting of chronic low back and abdominal pain. S/p Cedeño DRG explant on 10/02/23 with significant improvement to his abdominal pain. States it is nearly resolved. Lower back left side pain has still been bothersome. Described as feeling tight and deep and he is unsure if it is muscular. Has completed 2 OMT visits and PT with benefit, though he inquires about an injection. Agreeable to try a ganglion impar NB.Of note, he is going on a trip and will be in the care for long hours while driving back from [place]. Inquires about a small script of Houston to manage his pain in the car.He is able to manage his pain well with more conservative measures including stretching and ice/heat. This has allowed him to wean off his long-term Houston 5-325mg, last dose taken a few weeks ago. No other concerns to note. Comments: Santosh simon for virtual follow up and wound check s/p Cedeño DRG explant on 10/02/23. Reports his low back pain has significantly improved since then, especially the pulsating inflammation. His abdominal pain has also been improved. May consider repeating his hypogastric NB in the future if needed.He is able to manage his pain well with more conservative measures including stretching and ice/heat. Is hopeful to trial PT and OMT soon. This has allowed him to being weaning off his Houston 10-325mg. No refill needed today. No other concerns to note. Abdominal pain Severity is 5. D uration is chronic. It occurs constantly. The problem is improving. Location is LLQ, hypogastric and let lower back. Abdominal pain Severity is 7. D uration is chronic. It occurs constantly. The problem is unchanged. Location is diffuse and low back. Comments: Santosh pr esents for virtual follow up to discuss his fractured DRG lead. S/p Left T11 and L1 DRG lead revision on 06/14/23. He completed a lead check and reprogramming on 08/13/23 showing left L1 lead fracture. Notes at the 7 week post-op erin, he was still being very careful with his restrictions. He dropped his ear bud and slowly knelt down to pick it up and immediately felt a pop and stinging in his back, similar to last lead fracture. He's unsure why this happened. His device has since been turned off. Notes he's had increased back pain, primarily in left low back described as a deep, aching pain. This pain is currently more bothersome than his abdominal pain and was being covered prior to lead fracture. At this point, he is leaning towards a DRG explant as this will be his 4th surgery. He is interested in other treatment options. He recently had to drop out of school due to his pain and was unable to keep up. Reports he is currently managing his pain with Houston 10/325 at max 3/day, occasionally takes up to max 4/day. Inquires about a refill. Also benefiting from Hydroxyzine. Patient is accompanied by his mother who contributes to today's discussion. No other concerns today. Comments: Santosh is a 23 y/o male who presents in clinic for a 2 week post-op s/p Left T11 and L1 DRG lead revision on 06/14/23. He is followed for chronic abdominal pain and causalgia of lower left limb. Notes no major complications, but does believe he is healing slower than his last DRG procedure. Endorses swelling in the area, but it is improving. Also c/o a pressure feeling in his leg when the device is turned on. Of note, he details an intermittent popping sensation in between his leads, no associated pain reported.Agreeable to refill his norco 5-325mg, currently utilizing ~3/day. He would like to start weaning off now that his pain has calmed down, tapering instructions given. No other concerns today. Abdominal pain Severity is 9. D uration is chronic. It occurs constantly. The client describes it as aching, sharp and tingling. Symptom is aggravated by bending, lying and movement. Relieving factors include ice, meds and changing positions. Abdominal pain Duration is net c developer ann. Location is and low back left lower extremity. Comments: Santosh is a 23 y/o male who presents virtually for follow up and medication management regarding chronic abdominal pain and causaliga of lower left limb. His low back and left SIJ area is his main area of pain today that prevents him from getting through school; this pain was still present but less noticeable when DRG was working.He is s/p a Left L1 DRG lead replacement on 04/12/23. He is scheduled for a Left T11 and L1 DRG lead revision on 06/14/23 w/ lead replacement; order updated today. He believes that thrashing in his sleep caused his lead to be displaced prior to previous adjustment. He has a back brace available but has not been wearing this d/t it being uncomfortable near his battery site.Agreeable to refill his norco 5-325mg. He would like to be off pain medications once things calm down for him. No other concerns today.Of note, he presents with his mother who participates in today's discussion. Abdominal pain Severity is 6. D uration is chronic. It occurs constantly. The problem is worse. Location is and lower back. Comments: Santosh is a 22 y/o male who presents virtually for follow up and medication management regarding chronic abdominal pain. Pain moreso in his lower back as of recent, near his lead sites. Pain is worsening and is at a level 6/10. Patient's came into the surgery center and was found to have a right L1 lead fracture, therefore a lead revision is required. Patient scheduled on 04/12/23.Agreeable to refill his norco 5-325mg, requests a refill on his hydroxyzine as well. He would like to be off pain medications once things calm down for him. No other concerns today. Abdominal pain Severity is 4. D uration is chronic. It occurs constantly. The problem is improving. The client describes it as aching. Symptom is aggravated by exercise, movement, bending over, prolonged positioning and housework. Relieving factors include lying down, rest, RX meds and DRG. Comments: Santosh is a 22 y/o male who presents for follow up and medication management regarding chronic abdominal pain. Pain has been overall improved this past month and pain level averages 4/10. States he has been more active since JUDIT. Notes he has been seeing a holistic doctor who rx'ed LDN.DRG implant 08/29/[address] Navas. Reports greater than 60% pain relief. S/p dorsal root ganglion lead anchor removal 10/24/[address] Yanez. States the procedure went well and is recovering well. States he adjusted his levels to a more constant stimulation, which has provided significant pain relief.States he has been following up with psychiatrist who thinks his symptoms may be psychosomatic and recommends EMVR treatment.Of note, he will be starting school at [employer] in the fall for [employer].Current medication regimen provides 50% pain relief for increased functionality. Presents on track with prescribed medication. Denies side effects from current medication regimen. States he would like to begin a taper off of Houston. No other concerns today. Comments: Santosh pr esents for follow up due to ongoing pain and swelling at DRG implant incision sites. Since he was last evaluated 2 weeks ago, he's had increased sweating and clamminess (temperature did not get above 99 degrees F) and loose/watery stools, decreased appetite, and cold sores. Reports significant relief of anchor site swelling and pain during Predisone course prescribed JUDIT, but these symptoms returned after finishing. Notes his incision site pain is only aggravated by palpation, swelling has not worsened and continues to have no signs of skin infection. States his DRG is providing significant relief for his chronic anterior abdominal pain and he is able to be more functional, but he is now having newer symptoms of a tension headache and tingling in LLE described as a charley horse with pain in left heel when he steps on it that only occurs when device is on, despite decreasing intensity and changing programs. No Hx of similar pain in the past and has not had any changes in activity level. He has discussed this with Lance from [employer] and is scheduled for reprogramming next week on 10/26. Patient is scheduled for an anchor revision with me later this month on 11/07/22. 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 Has been managing with supplements and diet changes. Also has Hx of C-diff. Established with [facility] and scheduled to follow up again next month. No other concerns today. Abdominal pain Severity is 6. D uration is chronic. It occurs constantly. The problem is worse. Location is and low back LLE. The client describes it as aching, sharp and tingling. Symptom is aggravated by lying down, bending over, lifting, stairs, sitting and prolonged positioning. Relieving factors include ice and medications. Abdominal pain Duration is net c developer ann. Comments: Santosh siomn for follow up and wound check d/t onset of pain and swelling at incision sites s/p DRG implant on 08/29/[address] Navas. Notes his swelling continues to fluctuate and still having pain incision sites, most aggravated by prolonged positioning while driving. Has been using his back brace, icing regularly, alternating between Houston and Advil. States his swelling seems to be the most improved from Epsom salt baths, although not with every bath. He is almost done with his course of abx prescribed JUDIT, although has noticed onset of headaches since starting.Overall he continues to have significant relief from his DRG device and is very happy with his results. Patient is accompanied by his mom who contributes to today's discussion. No other concerns today. Comments: Santosh simon for follow up and a second wound check d/t onset of pain and swelling at incision sites s/p DRG implant on 08/29/[address] Navas. He was healing well, but as of last week he noticed onset of symptoms. Prescribed Clindamycin 2 days ago and his swelling seemed to be better for one day, increased today. Endorses sites are very painful. Continues to deny fever, chills, and streaking redness or drainage at sites. Patient is accompanied by his mom who contributes to today's discussion. No other concerns today. Abdominal pain Duration is net c developer ann. Comments: Santosh simon for follow up and a wound check. S/p DRG implant on 08/29/[address] Navas. Notes for the first 3 weeks his post-op pain was healing well, but as of last week he noticed onset of increased pain and swelling at both lead incision sites in back. Pain and swelling seem to increase throughout the day from sitting/standing. Denies fever, chills, N/V and any drainage from site. Despite his current symptoms, patient endorses he is having 100% relief of his chronic abdominal pain and is happy with his results so far. Patient is accompanied by his mom who contributes to today's discussion. No other concerns today. Abdominal pain Duration is net c developer ann. Abdominal pain Severity is 5. D uration is chronic. It occurs constantly. The problem is unchanged. Location is LLQ and BL buttocks. The client describes it as aching, sharp and burning. Symptom is aggravated by exercise, movement, lying down, bending over, prolonged sitting, prolonged standing, housework and lifting. Relieving factors include analgesics, rest and ice. Comments: Santosh is a 22 y/o male who presents for follow up, 2-week DRG post-op and medication management regarding chronic abdominal pain. S/p DRG left T11 and left L1 trial on 06/30/22. Pain has been overall stable this past month and pain level averages 5/10. S/p DRG implant 08/29/[address] Navas. Reports greater than 60% pain relief. Notes relief is more significant in L abdomen, but continues to endorse pain in R abdomen. Endorses some tenderness and swelling at battery site.Current medication regimen provides 40% pain relief for increased functionality. Presents without medication available for count. States he accidently grabbed his hydroxyzine instead of hydrocodone, but has plenty of hydrocodone remaining. Upon inquiry, endorses that he would like to taper off of Houston eventually. Denies side effects from current medication regimen. No other concerns today. Comments: Santosh is a 22 y/o male who presents for virtual follow up consult regarding chronic abdominal pain. S/p DRG left T11 and left L1 trial on 06/30/22. Pain has been overall stable this past month and pain level averages 7/10. Specifically notes numbness on left side of abdomen. Endorses urinary hesitancy.Scheduled for DRG implant 08/29/[address] Navas. States he is looking forward to the procedure. Discussed the procedure and answered any questions the patient had.Current medication regimen provides 30% pain relief for increased functionality. Presents on track with prescribed medication. Upon inquiry, endorses that he would like to taper off of Houston eventually. Denies side effects from current medication regimen. No other concerns today. Abdominal pain Severity is 7. D uration is chronic. It occurs constantly. The problem is unchanged. Abdominal pain Severity is 8. D uration is chronic. It occurs constantly. The problem is unchanged. The client describes it as aching and sharp. Symptom is aggravated by lying down, bending over, prolonged sitting, prolonged standing, lifting, housework, running and twisting. Relieving factors include medications and epsom baths. Comments: Santosh is a 22 y/o man here for follow up consult regarding chronic abdominal pain. S/p DRG left T11 and left L1 trial on 06/30/22. Pain has been fluctuating this past month and pain level averages 8/10. Reports increased pain in left side of abdomen for the past few weeks. Specifically notes numbness on left side of abdomen.Patient would like to proceed with DRG implant.Current medication regimen provides 30% pain relief for increased functionality. Upon inquiry, endorses that he would like to taper off of Houston eventually. Denies side effects from current medication regimen. No other concerns today. Abdominal pain Duration is net c developer ann. It occurs constantly. The problem is unchanged. Location is diffuse. The client describes it as aching and sharp. Symptom is aggravated by movement, prolonged sitting and prolonged standing. Relieving factors include rest and medications. Comments: Santosh pr esents for a follow up and medication refill. Patient c/o chronic abdominal pain. Pain has been stable since last visit. S/p left superior hypogastric plexus block on 03/15/2022 and repeat left abdominal wall TPIs on 04/06/2022 with benefit. Notes increased pain on the left-side of his low back after an acupuncture session. He will f/u again on 06/30/2022. Inquires about pursuing ASTRID as his pain has made it difficult to sleep at night. DRG trial ordered on 05/17/2022. He completed his psych evaluation on 05/19/2022. Medication provides 30% relief and allows for increased functionality. States he has needed to utilize up to #4 tabs / day on severe pain days as he has noticed decreased efficacy of Houston 5-325mg. Inquires about trailing a new medication. Continues to benefit with PT and acupuncture. Denies side effects from current medication regimen. Comments: Santosh simon for a follow up and medication refill and to discuss lumbar MRI and DRG trial. Reports his chronic abdominal pain has been stable since last visit. S/p left superior hypogastric plexus block on 03/15/2022 and repeat left abdominal wall TPIs on 04/06/2022 with benefit. Continues to benefit from PT and recently began acupuncture through [facility] with some benefit.Notes his low back pain has been worsening with intermittent flares r/t increased activity and with extension. Pain is greater on left side. He recently completed an updated lumbar MRI at [facility], inquires about results. He is interested in pursuing a DRG trial as discussed with Iggy Medina PA-C in possibly providing relief for his nerve pain that may be attributing to his abdominal pain. Medication provides 30% relief and allows for increased functionality. Notes appreciable relief with use of Biofreeze. Denies side effects from current medication regimen. Patient is accompanied by his mother who contributes to today's discussion. No other concerns today. Abdominal pain Severity is 3. D uration is chronic. It occurs constantly. The problem is worse. Location is LLQ. There is radiation to back. The client describes it as aching and sharp. Symptom is aggravated by bending over, housework, lifting, prolonged positioning and walking. Relieving factors include medications, ice and biofreeze. Comments: Santosh simon for a follow up and medication refill. Patient c/o chronic abdominal pain. Pain has been stable since last visit. S/p left superior hypogastric plexus block on 03/15/2022. S/p left abdominal wall TPIs on 04/06/2022. Continues to benefit. His low back pain has improved. Inquires about pursuing imaging, per Dr. Yanez's recommendation. He has been f/u with GI. States he is healing from his recent infection. Notes he will need to complete further blood work to monitor. Medication provides moderate relief and allows for increased functionality per patient intake. Continues to benefit with PT. Also recently began acupuncture through [facility] with some benefit. Notes appreciable relief with use of Biofreeze. Denies side effects from current medication regimen. No other concerns today. Abdominal pain Duration is net c developer ann. It occurs constantly. The problem is unchanged. Location is diffuse. The client describes it as aching, burning and sharp. Symptom is aggravated by movement, bending over, prolonged sitting and prolonged standing. Relieving factors include change in position, rest and medications. Abdominal pain Severity is 5. Duration is chronic. The client describes it as sharp. Symptom is aggravated by lying down, bending over, housework, prolonged positioning, running and twist. Relieving factors include ice, TENS and medications. Comments: Steph deng presents for follow-up. He is followed for chronic abdominal pain. Reports pain has been relatively stable since JUDIT. Notes he has been more active since JUDIT. Reports intermittent L hip pain, with associated spasms, numbness, and weakness.S/p 02/28/2022 left abdominal wall TPI with Dr. Yanez. He reports not feeling much relief. States pain persists superficially. S/p 03/15/2022 left superior hypogastric plexus block with Dr. Yanez. Reports significant relief, especially in his back. States relief is lasting longer than previous block.He is interested in trying acupuncture. Reports current medication regimen provides at least 50% pain relief and allows increased functionality. States meds have still been helping but not as well as it used to. Is concerned about brainfog and does not wish to change medications at this time. Denies side effects from current medication regimen. He is accompanied by his father. No other concerns today. Comments: Steph deng presents for follow-up. He is followed for chronic abdominal pain. Reports pain has been relatively stable since JUDIT. Notes he has been more active since JUDIT. Reports intermittent L hip pain, with associated spasms, numbness, and weakness.S/p 08/23/2021 left abdominal wall TPIs with Dr. Galdamez. Patient detailed significant benefit with injections and stated his pain had been almost completely resolved. Reported 85%+ benefit and details increased quality of life. Now details that his pain has returned to baseline. Reports he has also gotten an injection in his back from [facility], reports no relief. S/p hypogastric plexus nerve block with Dr. Yanez 02/07/22. Reports greater than 80% pain relief. States he felt almost normal after the procedure. Reports the procedure was uncomfortable.Of note, he will be starting his last semester at [employer] this fall.Reports current medication regimen provides at least 50% pain relief and allows increased functionality. Denies side effects from current medication regimen. Presents on track with prescribed medication. Notes he would like to taper off pain medications eventually. He is accompanied by his father. No other concerns today. Abdominal pain Severity is 4. D uration is chronic. It occurs constantly. The problem is improving. The client describes it as aching and sharp. Symptom is aggravated by exercise, movement, bending over, prolonged sitting, prolonged standing and twisting. Relieving factors include lying down, RX meds, changing positions and ice. Comments: Steph deng presents for follow-up. He is followed for chronic abdominal pain. Reports pain has been relatively stable since JUDIT. S/p 08/23/2021 left abdominal wall TPIs with Dr. Galdamez. Patient detailed significant benefit with injections and stated his pain had been almost completely resolved. Reported 85%+ benefit and details increased quality of life. Now details that his pain has returned to baseline. Reports he has also gotten an injection in his back from [facility], reports no relief. Scheduled for hypogastric nerve block 02/07/22. States he is looking forward to the procedure.Notes recent Neo infection. States he was prescribed Nystatin.Reports current medication regimen provides at least 50% pain relief and allows increased functionality. Denies side effects from current medication regimen. Presents on track with prescribed medication. Notes he would like to taper off pain medications. He is not accompanied. No other concerns today. Abdominal pain Severity is 8. D uration is chronic. It occurs constantly. The problem is unchanged. The client describes it as aching and sharp. Symptom is aggravated by movement, prolonged sitting and prolonged standing. Relieving factors include rest, medications and ice. Comments: Steph deng presents for follow-up. He is followed for chronic abdominal pain. S/p 08/23/2021 left abdominal wall TPIs with Dr. Galdamez. Patient detailed significant benefit with injections and stated his pain had been almost completely resolved. Reported 85%+ benefit and details increased quality of life. Now details that his pain has returned to baseline. Reports he has also gotten an injection in his back from [facility], reports no relief. Notes he may see a neurologist.Notes he has been doing PT. Reports pain while doing PT exercises.Reports PCP has prescribed pain medication. Reports current medication regimen provides at least 50% pain relief and allows increased functionality. Denies side effects from current medication regimen. Notes he would like to taper off pain medications. He is accompanied by his mother and she participates in today's visit. No other concerns today. Abdominal pain Severity is 8. D uration is chronic. It occurs constantly. The problem is worse. The client describes it as aching and sharp. Symptom is aggravated by prolonged sitting, prolonged standing and movement. Relieving factors include ice and medications. Abdominal pain (comments) Steph deng presents for initial follow-up. This is my first evaluation of the patient, initial consult was with Gloria Ferrer DNP. He is followed for chronic abdominal pain. S/p 08/23/2021 left abdominal wall TPIs with Dr. Galdamez. Patient details significant benefit with injections and states his pain has been almost completely resolved. Report 85%+ benefit and details increased quality of life. He is not accompanied and has no other concerns today. Abdominal pain Severity is 2. D uration is chronic. It occurs daily. The problem is improving. The patient describes it as sharp. Symptom is aggravated by housework and lifting. Relieving factors include medications and TENs. Abdominal pain (comments) Steph deng is a 21 y/o male, here for initial consult in the setting of abdominal pain, referred by Kiki Ashton PA-C at [facility]. He is accompanied by his mother, Nancy, today who contributes to the conversation. He states he has had this abdominal pain since 06/09/21. He reports he woke up with a severe, sharp pain in his lower left abdomen on that morning. He reports he also had diarrhea which started in 03/2021 but he was still able to function-this has largely resolved but he is still left with the pain. He states the pain seems to follow the lateral border of his abdomen. The pain is mostly on the left side and has a searing, stabbing quality. He states on the left side the pain starts above his groin and ends past his belly button. He reports on the right side, one spot particularly is painful. He notes he sometimes gets pain in his left hip and sometimes this pain can wrap from his hip to abdomen. The pain is intermittent but worsened with movement. He states his urination is normal. He reports he has been to the ER 3x since Thanksgiving d/t the pain as sometimes it is so bad it can cause him to end up laying on the ground crying. He reports he has completed CT, MRI, endoscopy- all normal. He has met with [facility] in the past. He states they did find some E. Coli and he is managed on an antibiotic currently. Will be f/u with [facility] on Sunday07/29/21 as he is still dealing with some diarrhea. He states he has a hx of 8 surgeries- mostly on his knee and reports a most recent meniscectomy on 03/10/21. He states he has also had a salivary stone removed and mastoidectomy and reports a hx of frequent infections including; Staph, Sinus, Strep, Mastoiditis and C.Diff.He states he has a TENS Unit which is helpful. He is interested in injection options at [facility] today. No other concerns. Abdominal pain Onset: sudden. S everity is 5. It occurs randomly. The patient describes it as aching, sharp, stabbing, throbbing and shooting. Symptom is aggravated by movement, bending over, prolonged sitting, prolonged standing, lifting, running and twisting. Relieving factors include medications and TENS Unit. Functional Status Date Functional Assessmen t No Information Instructions Date Instruction Additional Infor mation No Information Assessments Type Assessment Date No Information Patient Care Teams Name Effective Dates (start - stop) Status Members No Information
--- OUTSIDE RECORDS SUMMARY | 2025-05-19 05:51 | XMS_ITS | Continuity of Care Document ---
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 - Active valacyclovir 500 mg tablet take 1 tablet by oral route every day 500 MG - Active Zyrtec 10 mg capsule - Active Procedures Procedure Date OFFICE VISIT, EST TELEMEDICINE OFFICE VISIT, EST TELEMEDICINE OFFICE/OUTPATIENT VISIT, EST Drug test def 8-14 classes Drug Urine Toxology With Chromatography OFFICE VISIT, EST TELEMEDICINE OFFICE VISIT, EST [...] Diagnoses Date Provider Providers Copied on Encounter [facility], [address] [place] [address] [place], [id number] , [place] tel:[phone] [facility] [place] No Information 5 Liz Pooja. [address] [place], [place], [id number] , [place]. tel:[phone] OFFICE VISIT, EST TELEMEDICINE [facility], [address] Feroz [place], [id number] , [place] tel:[phone] [facility] low back pain (chief complaint) Other custodial (current) drug therapyOther spondylosis, lumbar regionCausalgia of left lower limbGeneralized abdominal painLong term (current) use of opiate analgesicEpigastr ic painVertebrogenic low back painOther muscle spasmChronic pain syndrome 4 Liz Pooja. [address] Ihsan [place], [place], [id number] , [place]. tel:[phone] OFFICE VISIT, EST TELEMEDICINE [facility], [address] [address] [place]z [place], [id number] , [place] tel:[phone] [facility] low back pain (chief complaint) Other terminal gauger (current) drug therapyOther spondylosis, lumbar regionCausalgia of left lower limbGeneralized abdominal painLong term (current) use of opiate analgesicEpigastr ic painVertebrogenic low back painOther muscle spasm 4 Ivy Stewart. [address] [place], [place], [id number] , [place]. [phone] OFFICE/OUTPAT IENT VISIT, EST [facility], [address] [place] [address], [id number] , [place] [phone] [facility] [place] low back pain (chief complaint) Other custodial (current) drug therapyOther spondylosis, lumbar regionCausalgia of left lower limbGeneralized abdominal painLong term (current) use of opiate analgesicEpigastr ic painVertebrogenic low back painOther muscle spasmEncounter for therapeutic drug level monitoring Mar- 4 Beau Lott. [address] [place], [place], [id number] , [place]. [phone] Referring Provider: Sree Mckinney, [address] [place] [address], [address]. tel:[phone] OFFICE VISIT, EST TELEMEDICINE [facility], [address] [place] [address], [id number] , [place] [phone] [facility] low back pain (chief complaint) Other muscle spasmOther terminal gauger (current) drug therapyOther spondylosis, lumbar regionCausalgia of left lower limbGeneralized abdominal painLong term (current) use of opiate analgesicEpigastr ic painVertebrogenic low back pain Sep- [address] [facility] [address], [place], [id number] , [place]. tel:[phone] Referring Provider: Sree Mckinney, [address] [place] [address], [address]. tel:[phone] OFFICE VISIT, EST TELEMEDICINE [facility], [address] [place] [address], [id number] , [place] [phone] [facility] low back pain (chief complaint) Other muscle spasmOther custodial (current) drug therapyOther spondylosis, lumbar regionCausalgia of left lower limbGeneralized abdominal painLong term (current) use of opiate analgesicEpigastr ic painVertebrogenic low back pain Feb-2 4 Yanez Kaylie. [address] [place], [id number] , [place]. tel: [phone] OFFICE/OUTPAT IENT VISIT, EST [facility], [address] [place], [id number] , [place] tel: [phone] [facility] low back pain (chief complaint) Other custodial (current) drug therapyOther spondylosis, lumbar regionCausalgia of left lower limbGeneralized abdominal painLong term (current) use of opiate analgesicEpigastr ic painVertebrogenic low back painOther muscle spasm Feb- 4 Yanez Kaylie. [address] [place], [id number] , [place]. tel: [phone] Referring Provider: Ni Andrew [address] [place], [address]. tel:[phone] [facility], [address] [place] [address] Shahla [place], [id number] , [place] tel: [phone] [facility] Other spondylosis, lumbar region 4 Yanez Kaylie. [address] [place], [id number] , [place]. tel: [phone] [facility], [address] [place] [address] Shahla [place], [id number] , [place] tel: [phone] [facility] [place] Other spondylosis, lumbar region Feb-0 4 Carol Parkinson. Ni, [address] [place], [address], [place]. tel: [phone] [facility], [address] [place], [id number] , [place] tel: [phone] [facility] [place] Other spondylosis, lumbar region Feb-0 4 Yanez Kaylie. [address] [facility] Ihsan [place], [id number] , [place]. tel: [phone] Referring Provider: Ni Andrew [address] [place], [address]. tel:[phone] [facility], [address] [place] [address], [id number] , [place] tel: [phone] [facility] [place] lumbago (chief complaint) Other spondylosis, lumbar regionOther intervertebral disc degeneration, lumbar region 4 Lizet Contrerasew. [address] [place], [place], [id number] , [place]. tel: [phone] [facility], [address] [place] [address], [id number] , [place] tel: [phone] [facility] [place] Other spondylosis, lumbar region 4 Carol Parkinson. [place], [address] [place], [address], [place]. tel: [phone] OFFICE VISIT, EST TELEMEDICINE [facility], [address] [place] [address], [id number] , [place] tel: [phone] [facility] low back pain (chief complaint) Causalgia of left lower limbGeneralized abdominal painLong term (current) use of opiate analgesicEpigastr ic painOther custodial (current) drug therapyOther spondylosis, lumbar region 4 Carol Parkinson. [place], [address] [place], [address], [place]. tel: [phone] [facility], [address] [place] [address], [id number] , [place] tel: [phone] [facility] [place] Epigastric pain 4 Spencer Silveira. [address] [place] [address], [id number] , [place]. tel: [phone] Referring Provider: Sree Mckinney, [address] [place] [address], [address]. [phone] OFFICE VISIT, EST TELEMEDICINE [facility], [address] [place] [address], [id number] , [place] tel:[phone] [facility] [place] Abdominal pain (chief complaint) Causalgia of left lower limbOther intervertebral disc degeneration, lumbar regionGeneralized abdominal painLong term (current) use of opiate analgesicEpigastr ic pain November- 4 Medina Dan. [place], [address] [place], [address], [place]. [phone] Referring Provider: Sree Mckinney, [address] [place] [address], [address]. tel:[phone] OFFICE VISIT, EST TELEMEDICINE [facility], [address] [place] [address], [id number] , [place] tel:[phone] [facility] [place] Abdominal pain (chief complaint) Causalgia of left lower limbOther intervertebral disc degeneration, lumbar regionGeneralized abdominal painLong term (current) use of opiate analgesic Apr-0 4 Carol Cuevas [place], [address] [place], [address], [place]. [phone] Referring Provider: Sree Mckinney, [address] [place] [address], [address]. tel:[phone] [facility], [address] [place] [address], [id number] , [place] tel:[phone] [facility] [place] Causalgia of left lower limb 4 Yanez Kaylie. [address] [place] [address] [place], [place], [id number] , [place]. tel:[phone] Referring Provider: Sree Mckinney, [address] [place] [address], [address]. tel:[phone] [facility], [address] [place] [address], [id number] , [place] tel:[phone] [facility] [place] Causalgia of left lower limb Fe 4 Yanez Kaylie. [address] [place] [address] [place], [id number] , [place]. tel:[phone] OFFICE VISIT, EST TELEMEDICINE [facility], [address] [place] [address], [id number] , [place] tel: [phone] [facility] [place] Abdominal pain (chief complaint) Causalgia of left lower limbOther intervertebral disc degeneration, lumbar regionGeneralized abdominal painLong term (current) use of opiate analgesic 4 Beau Lott. [address] [place] [address], [id number] , [place]. tel: [phone] Referring Provider: Sree Mckinney, [address] [place] [address], [address]. [phone] [facility], [address] [place] [address], [id number] , [place] tel:[phone] [facility] Causalgia of left lower limb 4 Will Sree. [address] [place] [address], [id number] , [place]. tel:[phone] Referring Provider: Sree Mckinney, [address] [place] [address], [address]. [phone] OFFICE/OUTPAT IENT VISIT, [facility], [address] [place] [address], [id number] , [place] tel:[phone] [facility] Abdominal pain (chief complaint) Causalgia of left lower limbOther intervertebral disc degeneration, lumbar regionOther muscle spasmMyalgia, other siteGeneralized abdominal painStrain of fascia of abdomen, sequelaLong term (current) use of opiate analgesicOther custodial (current) drug therapyEncounter for screening for other disorder 3 Carol Parkinson. [place], [address] [place], [address], [place]. [phone] Referring Provider: Sree Mckinney, [address] [place] [address], [address]. [phone] [facility], [address] [place] [address], [id number] , [place] [phone] [facility] [place] Causalgia of left lower limbOther intervertebral disc degeneration, lumbar region 3 Yanez Kaylie. [address] [place] [address] [place], [place], [id number] , [place]. tel:[phone] Referring Provider: Sree Mckinney, [address] [place] [address], [address]. [phone] [facility], [address] [place] [address] [place], [id number] , [place] tel:[phone] [facility] [place] Causalgia of left lower limb 3 Yanez Kaylie. [address] [place] [address] [place], [id number] , [place]. tel:[phone] Referring Provider: Sree Mckinney, [address] [place] [address], [address]. [phone] OFFICE VISIT, EST TELEMEDICINE [facility], [address] [place] [address] [place], [id number] , [place] tel:[phone] [facility] [place] Abdominal pain (chief complaint) Causalgia of left lower limbOther intervertebral disc degeneration, lumbar regionOther muscle spasmMyalgia, other siteGeneralized abdominal painStrain of fascia of abdomen, sequelaLong term (current) use of opiate analgesicOther custodial (current) drug therapy 3 Yanez Kaylie. [address] [place] [address] [place], [id number] , [place]. tel:[phone] Referring Provider: Sree Mckinney, [address] [place] [address], [address]. tel:[phone] [facility], [address] [place] [address] [place], [id number] , [place] [phone] [facility] [place] Causalgia of left lower limb 3 Keaton Balbuena. [address] [place] [address] [place], [id number] , [place]. tel:[phone] Referring Provider: Sree Mckinney, [address] [place] [address], [address]. tel:[phone] [facility], [address] [place] [address], [id number] , [place] tel:[phone] [facility] Causalgia of left lower limb Nov-0 - 3 Keaton Balbuena. [address] [place] [address], [id number] , [place]. [phone] Referring Provider: Sree Mckinney, [address] [place] [address], [address]. tel:[phone] [facility], [address] [place] [address], [id number] , [place] [phone] [facility] Causalgia of left lower limb Oct-0 3 Carol Cuevas [place], [address] [place], [address], [place]. tel:[phone] Referring Provider: Sree Mckinney, [address] [place] [address], [address]. tel:[phone] [facility], [address] [place] [address], [id number] , [place] [phone] [facility] Causalgia of left lower limb Sep-2 - 3 Beau Lott. [address] [place] [address], [id number] , [place]. [phone] Referring Provider: Sree Mckinney, [address] [place] [address], [address]. tel:[phone] OFFICE VISIT, EST TELEMEDICINE [facility], [address] [place] [address], [id number] , [place] [phone] [facility] Abdominal pain (chief complaint) Causalgia of left lower limbOther intervertebral disc degeneration, lumbar regionOther muscle spasmMyalgia, other siteGeneralized abdominal painStrain of fascia of abdomen, sequelaLong term (current) use of opiate analgesicOther terminal gauger (current) drug therapy Sep-0 - 3 Carol Cuevas [place], [address] [place], [address], [place]. tel: [phone] [facility], [address] [place] [address], [id number] , [place] tel: [phone] [facility] Myalgia, other siteCausalgia of left lower limb Sep-0 - 3 Spencer Silveira. [address] [place] [address], [id number] , [place]. tel:[phone] Referring Provider: Sree Mckinney, [address] [place] [address], [address]. tel:[phone] [facility], [address] [place] [address], [id number] , [place] tel: [phone] [facility] Myalgia, other site Sep-0 3 Medina Iggy. [place], [address] [place], [address], [place]. tel:[phone] OFFICE/OUTPAT IENT VISIT, EST [facility], [address] [place] [address], [id number] , [place] tel:[phone] [facility] Abdominal pain (chief complaint) Causalgia of left lower limbOther intervertebral disc degeneration, lumbar regionOther muscle spasmMyalgia, other siteGeneralized abdominal painStrain of fascia of abdomen, sequelaLong term (current) use of opiate analgesicOther custodial (current) drug therapy Apr-2 3 Carol Iggy. [place], [address] [place], [address], [place]. tel:[phone] Referring Provider: Sree Mckinney, [address] [place] [address], [address]. tel:[phone] [facility], [address] [place] [address], [id number] , [place] [phone] [facility] Causalgia of left lower limb Apr-1 3 Beau Lott. [address] [place] [address], [id number] , [place]. tel:[phone] Referring Provider: Sree Mckinney, [address] [place] [address], [address]. tel:[phone] [facility], [address] [place] [address] [place], [id number] , [place] tel: [phone] [facility] [place] Causalgia of left lower limb Apr-1 - 3 Yanez Kaylie. [address] [place], [place] [address]Jo [place], [place], [id number] , [place]. tel: [phone] Referring Provider: Sree Mckinney, [address] [place] [address], [address]. tel:[phone] OFFICE/OUTPAT IENT VISIT, [facility], [address] [place] [address] [place], [id number] , [place] tel: [phone] [facility] [place] Abdominal pain (chief complaint) Causalgia of left lower limb Apr-0 - 3 Yanez Kaylie. [address] [place] [address] [place], [id number] , [place]. tel: [phone] Referring Provider: Sree Mckinney, [address] [place] [address], [address]. tel:[phone] OFFICE/OUTPAT IENT VISIT, [facility], [address] [place] [address] [place], [id number] , [place] tel: [phone] [facility] [place] Abdominal pain (chief complaint) Causalgia of left lower limb Mar-2 3 Yanez Kaylie. [address] [place] [address] [place], [place], [id number] , [place]. tel: [phone] Referring Provider: Sree Mckinney, [address] [place] [address], [address]. tel:[phone] [facility], [address] [place] [address] [place], [id number] , [place] tel: [phone] [facility] [place] Causalgia of left lower limb Mar-1 - 3 Keaton Balbuena. [address] [place] [address] [place], [id number] , [place]. tel: [phone] Referring Provider: Sree Mckinney, [address] [place] [address], [address]. tel:[phone] OFFICE/OUTPAT IENT VISIT, [facility], [address] [place] [address], [id number] , [place] tel: [phone] [facility] [place] Abdominal pain (chief complaint) Causalgia of left lower limb Sep- 3 Yanez Kaylie. [address] [place] [address], [id number] , [place]. tel: [phone] Referring Provider: Sree Mckinney, [address] [place] [address], [address]. tel:[phone] OFFICE/OUTPAT IENT VISIT, [facility], [address] [place] [address], [id number] , [place] tel: [phone] [facility] Abdominal pain (chief complaint) Causalgia of left lower limb Sep- 3 Yanez Kaylie. [address] [place] [address], [id number] , [place]. tel: [phone] Referring Provider: Sree Mckinney, [address] [place] [address], [address]. tel:[phone] OFFICE/OUTPAT IENT VISIT, [facility], [address] [place] [address], [id number] , [place] tel: [phone] [facility] Abdominal pain (chief complaint) Causalgia of left lower limbOther intervertebral disc degeneration, lumbar regionOther muscle spasmMyalgia, other siteGeneralized abdominal painStrain of fascia of abdomen, sequelaLong term (current) use of opiate analgesicOther custodial (current) drug therapy Sep-0 3 Carol Parkinson. [place], [address] [place], [address], [place]. tel: [phone] Referring Provider: Sree Mckinney, [address] [place] [address], [address]. tel:[phone] [facility], [address] [place] [address], [id number] , [place] tel:[phone] [facility] [place] Causalgia of left lower limb Fe-2 2-202 3 Medina Dan. [place], [address] [place], [address], [place]. [phone] Referring Provider: Sree Mckinney, [address] [place] [address], [address]. tel:[phone] [facility], [address] [place] [address], [id number] , [place] [phone] [facility] [place] Causalgia of left lower limb 3 Eloise Simonw. [address] [place], [place], [id number] , [place]. [phone] Referring Provider: Sree Mckinney, [address] [place] [address], [address]. tel:[phone] OFFICE VISIT, RUST TELEMEDICINE [facility], [address] [place] [address], [id number] , [place] [phone] [facility] Abdominal pain (chief complaint) Causalgia of left lower limbOther intervertebral disc degeneration, lumbar regionOther muscle spasmMyalgia, other siteGeneralized abdominal painStrain of fascia of abdomen, sequelaLong term (current) use of opiate analgesicOther custodial (current) drug therapy 3 Medina Iggy. [place], [address] [place], [address], [place]. [phone] OFFICE/OUTPAT IENT VISIT, [facility], [address] [place] [address], [id number] , [place] [phone] [facility] Abdominal pain (chief complaint) Causalgia of left lower limbOther intervertebral disc degeneration, lumbar regionOther muscle spasmMyalgia, other siteGeneralized abdominal painStrain of fascia of abdomen, sequelaLong term (current) use of opiate analgesicOther custodial (current) drug therapyEncounter for screening for other disorder 3 Carol [place], [address] [place], [address], [place]. tel: [phone] Referring Provider: Sree Mckinney, [address] [place] [address], [address]. tel:[phone] [facility], [address] [place] [address], [id number] , [place] tel: [phone] [facility] No Information 3 Carol Parkinson. [place], [address], [place], [address], [place]. tel: [phone] [facility], [address] [place] [address], [id number] , [place] tel: [phone] [facility] Causalgia of left lower limbGeneralized abdominal pain [address] [place] [address] 100, [place], [place], [id number] , [place]. tel: [phone] Referring Provider: Sree Mckinney, [address] [place] [address], [address]. tel: [phone] [facility], [address] [place] [address], [id number] , [place] tel: [phone] [facility] No Information [address] [place] [address] [address], [place], [place], [id number] , [place]. tel: [phone] Referring Provider: Sree Mckinney, [address] [place] [address], [address]. tel:[phone] [facility], [address] [place] [address], [id number] , [place] tel: [phone] [facility] Causalgia of left lower limb 2 Eloise Balbuena. [address] [place] [address], [id number] , [place]. tel: [phone] Referring Provider: Sree Mckinney, [address] [place] [address], [address]. tel:[phone] [facility], [address] [place] [address], [id number] , [place] [phone] [facility] Other intervertebral disc degeneration, lumbar region 2 Eloise Balbuena. [address] [place] [address], [id number] , [place]. tel:[phone] Referring Provider: Sree Mckinney, [address] [place] [address], [address]. [phone] OFFICE/OUTPAT IENT VISIT, [facility], [address] [place] [address], [id number] , [place] [phone] [facility] Abdominal pain (chief complaint) Causalgia of left lower limbOther muscle spasmMyalgia, other siteGeneralized abdominal painStrain of fascia of abdomen, sequelaLong term (current) use of opiate analgesicOther custodial (current) drug therapyOther intervertebral disc degeneration, lumbar region 2 Medina Iggy. [place], [address] [place], [address], [place]. tel:[phone] Referring Provider: Sree Mckinney, [address] [place] [address], [address]. [phone] Psych Dx Eval [facility], [address] [place] [address], [id number] , [place] tel:[phone] Telehealth Pain disorder with related psychological factorsAnxiety disorder 2 Eleni Astudillo Peg. [address] [place] [address], [id number] , [place]. tel:[phone] Referring Provider: Sree Mckinney, [address] [place] [address], [address]. [phone] [facility], [address] [place] [address], [id number] , [place] tel:[phone] [facility] Causalgia of left lower limb 2 Medina Iggy. [place], [address] [place], [address], [place]. tel:[phone] OFFICE/OUTPAT IENT VISIT, [facility], [address] [place] [address], [id number] , [place] tel:[phone] [facility] Abdominal pain (chief complaint) Other intervertebral disc degeneration, thoracolumbar regionOther muscle spasmMyalgia, other siteGeneralized abdominal painLong term (current) use of opiate analgesicOther custodial (current) drug therapyStrain of fascia of abdomen, sequelaCausalgia of left lower limb Nov-0 2 Yanez Kaylie. [address] [place] [address], [id number] , [place]. tel:[phone] Referring Provider: Sree Mckinney, [address] [place] [address], [address]. [phone] OFFICE/OUTPAT IENT VISIT, [facility], [address] [place] [address], [id number] , [place] tel:[phone] [facility] Abdominal pain (chief complaint) Other intervertebral disc degeneration, thoracolumbar regionOther muscle spasmMyalgia, other siteGeneralized abdominal painLong term (current) use of opiate analgesicOther terminal gauger (current) drug therapyStrain of fascia of abdomen, initial encounter 2 Carol Cuevas [place], [address] [place], [address], [place]. tel:[phone] Referring Provider: Sree Mckinney, [address] [place] [address], [address]. [phone] [facility], [address] [place] [address], [id number] , [place] tel:[phone] [facility] Surgery [facility] Generalized abdominal pain Sep-2 2 Yanez Kaylie. [address] [place] [address], [id number] , [place]. tel:[phone] Referring Provider: Sree Mckinney, [address] [place] [address], [address]. [phone] [facility], [address] [place] [address], [id number] , [place] tel:[phone] [facility] Generalized abdominal pain Sep-1 2 Medina Iggy. [place], [address] [place], [address], [place]. [phone] [facility], [address] [place] [address], [id number] , [place] tel:[phone] [facility] Surgery [facility] Generalized abdominal pain Sep-1 2 Yanez Kaylie. [address] [place] [address], [id number] , [place]. tel:[phone] Referring Provider: Sree Mckinney, [address] [place] [address], [address]. [phone] OFFICE/OUTPAT IENT VISIT, [facility], [address] [place] [address], [id number] , [place] tel:[phone] [facility] Abdominal pain (chief complaint) Generalized abdominal painLong term (current) use of opiate analgesicOther terminal gauger (current) drug therapyOther intervertebral disc degeneration, thoracolumbar regionOther muscle spasmMyalgia, other site Sep-0 2 Medina Iggy. [place], [address] [place], [address], [place]. [phone] Referring Provider: Sree Mckinney, [address] [place] [address], [address]. [phone] [facility], [address] [place] [address], [id number] , [place] [phone] [facility] Generalized abdominal pain Aug-3 2 Yanez Kaylie. [address] [place] [address], [id number] , [place]. [phone] Referring Provider: Sree Mckinney, [address] [place] [address], [address]. [phone] [facility], [address] [place] [address], [id number] , [place] [phone] [facility] Generalized abdominal pain Aug-2 2 Medinamer Parkinson. [place], [address] [place], [address], [place]. tel:[phone] [facility], [address] [place] [address], [id number] , [place] [phone] [facility] [place] Generalized abdominal pain 2 Yanez Kaylie. [address] [place] [address], [id number] , [place]. tel:[phone] Referring Provider: Sree Mckinney, [address] [place] [address], [address]. [phone] OFFICE/OUTPAT IENT VISIT, [facility], [address] [place] [address], [id number] , [place] [phone] [facility] Abdominal pain (chief complaint) Other intervertebral disc degeneration, thoracolumbar regionOther muscle spasmMyalgia, other siteGeneralized abdominal painLong term (current) use of opiate analgesicOther custodial (current) drug therapy 2 Carol Parkinson. [place], [address] [place], [address], [place]. [phone] Referring Provider: Sree Mckinney, [address] [place] [address], [address]. [phone] [facility], [address] [place] [address], [id number] , [place] [phone] [facility] Generalized abdominal pain 2 Yanez Kaylie. [address] [place] [address], [id number] , [place]. [phone] Referring Provider: Sree Mckinney, [address] [place] [address], [address]. tel:[phone] OFFICE/OUTPAT IENT VISIT, [facility], [address] [place] [address], [id number] , [place] [phone] [facility] Abdominal pain (chief complaint) Other intervertebral disc degeneration, thoracolumbar regionOther muscle spasmMyalgia, other siteGeneralized abdominal painLong term (current) use of opiate analgesicOther terminal gauger (current) drug therapy Jan- 2 Medina Dan. [place], [address] [place], [address], [place]. tel:[phone] Referring Provider: Sree Mckinney, [address] [place] [address], [address]. tel:[phone] OFFICE/OUTPAT IENT VISIT, [facility], [address] [place] [address], [id number] , [place] [phone] [facility] Abdominal pain (chief complaint) Other intervertebral disc degeneration, thoracolumbar regionOther muscle spasmMyalgia, other siteGeneralized abdominal painOther terminal gauger (current) drug therapyLong term (current) use of opiate analgesic 2 Medina Dan. [place], [address] [place], [address], [place]. [phone] Referring Provider: Sree Mckinney, [address] [place] [address], [address]. tel:[phone] [facility], [address] [place] [address], [id number] , [place] tel:[phone] [facility] Generalized abdominal pain November- 2 Jenn Lopez. [facility], [address] [facility] [address] [facility] [address], [place], [address], [place]. tel:[phone] Referring Provider: Sree Mckinney, [address] [place] [address], [address]. tel:[phone] [facility], [address] [place] [address], [id number] , [place] [phone] [facility] Generalized abdominal pain November- 2 Carol [place], [address] [place], [address], [place]. tel:[phone] OFFICE/OUTPAT IENT VISIT, EST [facility], [address] [place], [place], [id number] , [place] tel: [phone] [facility] Abdominal pain (chief complaint) Generalized abdominal painOther custodial (current) drug therapyOther muscle spasmMyalgia, other siteOther intervertebral disc degeneration, thoracolumbar region 2 Carol Parkinson. [place], [facility] [place], [place], [address], [place]. tel:[phone] Referring Provider: Sree Mckinney, [address] [place], [address]. [phone] [facility], [address] [place] [address], [id number] , [place] tel:[phone] [facility] Generalized abdominal pain 2 Barajas John. [facility], [address] [facility] [address], [place], [address], [place]. tel:[phone] Referring Provider: Kiki Ashton [facility] [address] [place], [address]. [phone] [facility], [address] [place] [address], [id number] , [place] tel:[phone] [facility] Generalized abdominal pain 2 Malini Gloria. [address], [place], [id number] , [place]. tel:[phone] OFFICE/OUTPAT IENT VISIT, [facility] Pain [facility], [address] [place] [address], [id number] , [place] tel: [phone] [facility] Abdominal pain (chief complaint) Generalized abdominal painEncounter for screening for other disorderOther terminal gauger (current) drug therapyOther muscle spasmMyalgia, other siteOther intervertebral disc degeneration, thoracolumbar region 2 Nyserafinsa Gloria. [address], [place], [id number] , [place]. tel:[phone] Referring Provider: Kiki Ashton [facility] [address], [place], [address]. tel:[phone] Family History Family Member Type Diagnosis Age At Onset Father Problem bulging disc in back Payers Payer name Insurance type Covered democrat ID Babak meyer(s) Nasir Davis BL [id number] Social History Type Description Quantity Date Captured Comments Sex Male Smoking Status No Information Chief Complaint And Reason For Visit No Information Reason For Referral Reason For Referral No Information Plan Of Treatment Date Type Action Status Goal OARS. Due on due Goal Update Social History. Due o n due Goal Review Allergy List. Due on due Goal Tobacco Use. Due on due Goal Medication Reconciliation. D ue on due Goal Hepatitis C screening. Due o n due Goal HOSPITAL SECURITY OFFICER Scanned. Due on due Goal Creatinine. Due on due Goal Order Annual PT. Due on due Goal ALT (SGPT). Due on due Goal UDT. Due on due Goal AST (SGOT). Due on due Goal SOIL FERTILITY SPECIALIST Paperwork. Due on due Goal PHQ-9. Due [...] use screening . Due on due Goal SOIL FERTILITY SPECIALIST Paperwork. Due on due Goal OARS. Due on due Goal HOSPITAL SECURITY OFFICER Scanned. Due on due Goal AST (SGOT). Due on due Goal ALT (SGPT). Due on due Goal Creatinine. Due on due Goal UDT. Due on due Goal PHQ-9. Due on du e Goal Order Annual PT. Due on due Goal ALT (SGPT). Due on due Goal UDT. Due on due Goal OARS. Due on due Goal AST (SGOT). Due on due Goal SOIL FERTILITY SPECIALIST Paperwork. Due on due Goal Order Annual PT. Due on due Goal Creatinine. Due on due Goal HOSPITAL SECURITY OFFICER Scanned. Due on due Goal Medication Reconciliation. [...] Review Allergy List. Due on due Goal SOIL FERTILITY SPECIALIST Paperwork. Due on due Goal AST (SGOT). Due on due Goal HOSPITAL SECURITY OFFICER Scanned. Due on due Goal Hepatitis C [...] ue Goal UDT. Due on due Goal Creatinine. Due on due Goal PHQ-9. Due on du e Goal OARS. Due on due Goal UDT. Due on due Goal AST (SGOT). Due on due Goal OARS. Due on due Goal Creatinine. Due on due Goal PHQ-9. Due on du e Goal Height. Due on d ue Goal Tobacco Use. Due on due Goal Weight. Due on d ue Goal Unhealthy drug use screening . Due on due Goal Order Annual PT. Due on due Goal HOSPITAL SECURITY OFFICER Scanned. Due on due Goal SOIL FERTILITY SPECIALIST Paperwork. Due on due Goal ALT (SGPT). Due on due Goal Hepatitis C screening. Due o n due Goal Update Social History. Due o n due Goal Medication Reconciliation. D ue on due Goal Review Allergy List. Due on due Goal UDT. Due on due Goal Creatinine. Due on due Goal ALT (SGPT). Due on due Goal Order Annual PT. Due on due Goal Hepatitis C screening. Due o n due Goal OARS. Due on due Goal HOSPITAL SECURITY OFFICER Scanned. Due on due Goal Review Allergy List. Due on due Goal Tobacco Use. Due on due Goal SOIL FERTILITY SPECIALIST Paperwork. Due on due Goal Unhealthy drug [...] Order Annual PT. Due on due Goal SOIL FERTILITY SPECIALIST Paperwork. Due on due Goal Creatinine. Due [...] due Goal UDT. Due on due Goal HOSPITAL SECURITY OFFICER Scanned. Due on due Goal Weight. Due on d ue Goal Tobacco Use. Due on due Goal HOSPITAL SECURITY OFFICER Scanned. Due on due Goal ALT (SGPT). Due on due Goal AST (SGOT). Due on due Goal Creatinine. Due on due Goal OARS. Due on due Goal Medication Reconciliation. D ue on due Goal PHQ-9. Due on du e Goal SOIL FERTILITY SPECIALIST Paperwork. Due on due Goal Hepatitis C [...] Review Allergy List. Due on due Goal SOIL FERTILITY SPECIALIST Paperwork. Due on due Goal Weight. Due on d ue Goal Tobacco Use. Due on due Goal HOSPITAL SECURITY OFFICER Scanned. Due on due Goal ALT (SGPT). [...] Order Annual PT. Due on due Goal SOIL FERTILITY SPECIALIST Paperwork. Due on due Goal HOSPITAL SECURITY OFFICER Scanned. Due on due Goal Medication Reconciliation. [...] Review Allergy List. Due on due Goal HOSPITAL SECURITY OFFICER Scanned. Due on due Goal Medication Reconciliation. D ue on due Goal AST (SGOT). Due on due Goal PHQ-9. Due on du e Goal UDT. Due on due Goal Hepatitis C screening. Due o n due Goal SOIL FERTILITY SPECIALIST Paperwork. Due on due Goal Tobacco Use. Due on due Goal Height. Due on d ue Goal OARS. Due on due Goal Medication Reconciliation. D ue on due Goal Weight. Due on d ue Goal ALT (SGPT). Due on due Goal Hepatitis C screening. Due o n due Goal SOIL FERTILITY SPECIALIST Paperwork. Due on due Goal Creatinine. Due on due Goal Review Allergy List. Due on due Goal Order Annual PT. Due on due Goal AST (SGOT). Due on due Goal UDT. Due on due Goal PHQ-9. Due on du e Goal Update Social History. Due o n due Goal Unhealthy drug use screening . Due on due Goal HOSPITAL SECURITY OFFICER Scanned. Due on due Goal Tobacco Use. Due on due Goal Tobacco Use. Due on due Goal PHQ-9. Due on du e Goal Creatinine. Due on due Goal Weight. Due on d ue Goal Hepatitis C screening. Due o n due Goal HOSPITAL SECURITY OFFICER Scanned. Due on due Goal AST (SGOT). Due on due Goal ALT (SGPT). Due on due Goal Update Social History. Due o n due Goal Unhealthy drug use screening . Due on due Goal Order Annual PT. Due on due Goal Height. Due on d ue Goal OARS. Due on due Goal SOIL FERTILITY SPECIALIST Paperwork. Due on due Goal UDT. Due on due Goal Review Allergy List. Due on due Goal Medication Reconciliation. D ue on due Goal SOIL FERTILITY SPECIALIST Paperwork. Due on due Goal Order Annual PT. Due on due Goal OARS. Due on due Goal ALT (SGPT). Due on due Goal HOSPITAL SECURITY OFFICER Scanned. Due on 024 due Goal Creatinine. Due on due Goal [...] d ue Goal Tobacco Use. Due on 024 due Goal PHQ-9. Due on du e Goal Hepatitis C screening. Due o n due Goal Tobacco Use. Due on 023 due Goal Update Social History. Due o n due Goal Height. Due on d ue Goal Unhealthy drug use screening . Due on due Goal Weight. Due on d ue Goal Review Allergy List. Due on due Goal Medication Reconciliation. D ue on due Goal ALT (SGPT). Due on due Goal SOIL FERTILITY SPECIALIST Paperwork. Due on due Goal UDT. Due on due Goal OARS. Due on due Goal AST (SGOT). Due on due Goal HOSPITAL SECURITY OFFICER Scanned. Due on due Goal Order Annual PT. Due on due Goal Creatinine. Due on due Goal Height. Due on d ue Goal Hepatitis C screening. Due o n due Goal Creatinine. Due on due Goal AST (SGOT). Due on due Goal Update Social History. Due o n due Goal UDT. Due on due Goal Review Allergy List. Due on due Goal PHQ-9. Due on du e Goal Medication Reconciliation. D ue on due Goal SOIL FERTILITY SPECIALIST Paperwork. Due on due Goal Tobacco Use. Due on due Goal OARS. Due on due Goal HOSPITAL SECURITY OFFICER Scanned. Due on due Goal Weight. Due [...] Goal AST (SGOT). Due on due Goal HOSPITAL SECURITY OFFICER Scanned. Due on due Goal ALT (SGPT). Due on due Goal OARS. Due on due Goal SOIL FERTILITY SPECIALIST Paperwork. Due on due Goal HOSPITAL SECURITY OFFICER Scanned. Due on due Goal Hepatitis C screening. Due o n due Goal Medication Reconciliation. D ue on due Goal UDT. Due on due Goal SOIL FERTILITY SPECIALIST Paperwork. Due on due Goal Weight. Due [...] Social History. Due o n due Goal Update Social [...] use screening . Due on due Goal SOIL FERTILITY SPECIALIST Paperwork. Due on due Goal Review Allergy List. Due on due Goal HOSPITAL SECURITY OFFICER Scanned. Due on due Goal Weight. Due on d ue Goal Order Annual PT. Due on due Goal Height. Due on d ue Goal SOIL FERTILITY SPECIALIST Paperwork. Due on due Goal UDT. Due [...] due Goal OARS. Due on due Goal HOSPITAL SECURITY OFFICER Scanned. Due on due Goal PHQ-9. Due on du e Goal Height. Due on d ue Goal ALT (SGPT). Due on due Goal Update Social History. Due o n due Goal SOIL FERTILITY SPECIALIST Paperwork. Due on due Goal Height. Due [...] Medication Reconciliation. D ue on due Goal HOSPITAL SECURITY OFFICER Scanned. Due on due Goal AST (SGOT). Due on due Goal Weight. Due on d ue Goal HOSPITAL SECURITY OFFICER Scanned. Due on due Goal OARS. Due [...] ue Goal Creatinine. Due on due Goal SOIL FERTILITY SPECIALIST Paperwork. Due on due Goal PHQ-9. Due on du e Goal Order Annual PT. Due on due Goal ALT (SGPT). Due on due Goal Medication Reconciliation. D ue on due Goal Review Allergy List. Due on due Goal Weight. Due on d ue Goal PHQ-9. Due on du e Goal SOIL FERTILITY SPECIALIST Paperwork. Due on due Goal UDT. Due [...] Order Annual PT. Due on due Goal HOSPITAL SECURITY OFFICER Scanned. Due on due Goal Medication Reconciliation. D ue on due Goal Hepatitis C screening. Due o n due Goal Tobacco Use. Due on due Goal Update Social History. Due o n due Goal SOIL FERTILITY SPECIALIST Paperwork. Due on due Goal OARS. Due on due Goal PHQ-9. Due on du e Goal Order Annual PT. Due on due Goal Unhealthy drug use screening . Due on due Goal HOSPITAL SECURITY OFFICER Scanned. Due on due Goal Height. Due [...] Medication Reconciliation. D ue on due Goal SOIL FERTILITY SPECIALIST Paperwork. Due on due Goal UDT. Due on due Goal ALT (SGPT). Due on due Goal HOSPITAL SECURITY OFFICER Scanned. Due on due Goal AST (SGOT). Due on due Goal Creatinine. Due on due Goal Unhealthy drug use screening . Due on due Goal Order Annual PT. Due on due Goal Review Allergy List. Due on due Goal PHQ-9. Due on du e Goal Hepatitis C screening. Due o n due Goal Tobacco Use. Due on due Goal SOIL FERTILITY SPECIALIST Paperwork. Due on due Goal AST (SGOT). Due on due Goal ALT (SGPT). Due on due Goal Order Annual PT. Due on due Goal Review Allergy List. Due on due Goal Creatinine. Due on due Goal HOSPITAL SECURITY OFFICER Scanned. Due on due Goal UDT. Due [...] Goal Tobacco Use. Due on due Goal HOSPITAL SECURITY OFFICER Scanned. Due on due Goal Weight. Due on d ue Goal AST (SGOT). Due on due Goal Order Annual PT. Due on due Goal Update Social History. Due o n due Goal ALT (SGPT). Due on due Goal SOIL FERTILITY SPECIALIST Paperwork. Due on due Goal Unhealthy drug [...] Review Allergy List. Due on due Goal UDT. Due on due Goal SOIL FERTILITY SPECIALIST Paperwork. Due on due Goal HOSPITAL SECURITY OFFICER Scanned. Due on due Goal Medication Reconciliation. D ue on due Goal Creatinine. Due on due Goal AST (SGOT). Due on due Goal Order Annual PT. Due on due Goal PHQ-9. Due on du e Goal Creatinine. Due on due Goal AST (SGOT). Due on due Goal OARS. Due on due Goal SOIL FERTILITY SPECIALIST Paperwork. Due on due Goal ALT (SGPT). Due on due Goal Order Annual PT. Due on due Goal UDT. Due on due Goal PHQ-9. Due on du e Goal Review Allergy List. Due on due Goal Medication Reconciliation. D ue on due Goal HOSPITAL SECURITY OFFICER Scanned. Due on due Goal Tobacco Use. Due [...] due Goal OARS. Due on due Goal HOSPITAL SECURITY OFFICER Scanned. Due on due Goal Height. Due [...] Goal AST (SGOT). Due on due Goal SOIL FERTILITY SPECIALIST Paperwork. Due on due Goal ALT (SGPT). Due on due Goal ALT (SGPT). Due on due Goal HOSPITAL SECURITY OFFICER Scanned. Due on due Goal Review Allergy List. Due on due Goal Height. Due on d ue Goal Tobacco Use. Due on due Goal Update Social History. Due o n due Goal OARS. Due on due Goal Order Annual PT. Due on due Goal PHQ-9. Due on du e Goal Medication Reconciliation. D ue on due Goal Creatinine. Due on due Goal SOIL FERTILITY SPECIALIST Paperwork. Due on due Goal Unhealthy drug use screening . Due on due Goal Weight. Due on d ue Goal Hepatitis C screening. Due o n due Goal AST (SGOT). Due on due Goal UDT. Due on due Goal Order Annual PT. Due on due Goal Creatinine. Due on due Goal Tobacco Use. Due on due Goal Review Allergy List. Due on due Goal PHQ-9. Due on du e Goal OARS. Due on due Goal Weight. Due on d ue Goal Unhealthy drug use screening . Due on due Goal AST (SGOT). Due on due Goal HOSPITAL SECURITY OFFICER Scanned. Due on due Goal ALT (SGPT). Due on due Goal SOIL FERTILITY SPECIALIST Paperwork. Due on due Goal Update Social History. [...] Goal Height. Due on d ue Goal HOSPITAL SECURITY OFFICER Scanned. Due on due Goal OARS. Due on due Goal UDT. Due on due Goal Weight. Due on d ue Goal Tobacco Use. Due on 023 due Goal PHQ-9. Due on du e Goal Update Social History. Due o n due Goal SOIL FERTILITY SPECIALIST Paperwork. Due on due Goal AST (SGOT). Due on due Goal Order Annual PT. Due on due Goal Unhealthy drug use screening . Due on due Goal ALT (SGPT). Due on due Goal Unhealthy drug use screening . Due on due Goal SOIL FERTILITY SPECIALIST Paperwork. Due on due Goal Weight. Due on d ue Goal HOSPITAL SECURITY OFFICER Scanned. Due on due Goal Order Annual [...] Review Allergy List. Due on due Goal HOSPITAL SECURITY OFFICER Scanned. Due on due Goal AST (SGOT). Due on due Goal PHQ-9. Due on du e Goal SOIL FERTILITY SPECIALIST Paperwork. Due on due Goal Update Social History. [...] e Goal Creatinine. Due on due Goal UDT. Due on due Goal OARS. Due on due Goal Order Annual PT. Due on due Goal SOIL FERTILITY SPECIALIST Paperwork. Due on due Goal AST (SGOT). Due on due Goal HOSPITAL SECURITY OFFICER Scanned. Due on due Goal ALT (SGPT). Due on due Goal Medication Reconciliation. D ue on due Goal Unhealthy drug use screening . Due on due Goal Review Allergy List. Due on due Goal Tobacco Use. Due on due Goal Weight. Due on d ue Goal Medication Reconciliation. D ue on due Goal HOSPITAL SECURITY OFFICER Scanned. Due on due Goal Hepatitis C [...] ue Goal OARS. Due on due Goal SOIL FERTILITY SPECIALIST Paperwork. Due on due Goal Order Annual PT. Due on due Goal Update Social History. Due o n due Goal Review Allergy List. Due on due Goal HOSPITAL SECURITY OFFICER Scanned. Due on due Goal OARS. Due on due Goal Creatinine. Due on due Goal ALT (SGPT). Due on due Goal UDT. Due on due Goal Order Annual PT. Due on due Goal SOIL FERTILITY SPECIALIST Paperwork. Due on due Goal Update Social History. [...] Goal Weight. Due on d ue Goal HOSPITAL SECURITY OFFICER Scanned. Due on due Goal Height. Due on d ue Goal OARS. Due on due Goal Update Social History. Due o n due Goal AST (SGOT). Due on due Goal Unhealthy drug use screening . Due on due Goal ALT (SGPT). Due on due Goal Order Annual PT. Due on due Goal SOIL FERTILITY SPECIALIST Paperwork. Due on due Goal Review Allergy [...] due Goal OARS. Due on due Goal SOIL FERTILITY SPECIALIST Paperwork. Due on due Goal UDT. Due on due Goal HOSPITAL SECURITY OFFICER Scanned. Due on due Goal Update Social History. Due o n due Goal Creatinine. Due on due Goal Review Allergy List. Due on due Goal Weight. Due on d ue Goal Order Annual PT. Due on due Goal Order Annual PT. Due on due Goal ALT (SGPT). Due on due Goal AST (SGOT). Due on due Goal Hepatitis C screening. Due o n due Goal Review Allergy List. Due on due Goal PHQ-9. Due on du e Goal Update Social History. Due o n due Goal Tobacco Use. Due on due Goal SOIL FERTILITY SPECIALIST Paperwork. Due on due Goal Height. Due on d ue Goal Medication Reconciliation. D ue on due Goal Weight. Due on d ue Goal UDT. Due on due Goal Unhealthy drug use screening . Due on due Goal HOSPITAL SECURITY OFFICER Scanned. Due on due Goal Creatinine. Due on due Goal OARS. Due on due Goal Unhealthy drug use screening . Due on due Goal PHQ-9. Due on du e Goal Hepatitis C screening. Due o n due Goal HOSPITAL SECURITY OFFICER Scanned. Due on due Goal SOIL FERTILITY SPECIALIST Paperwork. Due on due Goal Order Annual [...] Review Allergy List. Due on due Goal HOSPITAL SECURITY OFFICER Scanned. Due on due Goal Order Annual PT. Due on due Goal Unhealthy drug use screening . Due on due Goal PHQ-9. Due on du e Goal Tobacco Use. Due on due Goal Medication Reconciliation. D ue on due Goal UDT. Due on due Goal Update Social History. Due o n due Goal SOIL FERTILITY SPECIALIST Paperwork. Due on due Goal Hepatitis C screening. Due o n due Goal Height. Due on d ue Goal AST (SGOT). Due on due Goal Weight. Due on d ue Goal OARS. Due on due Goal Weight. [...] due Goal OARS. Due on due Goal SOIL FERTILITY SPECIALIST Paperwork. Due on due Goal Creatinine. Due on due Goal Hepatitis C screening. Due o n due Goal HOSPITAL SECURITY OFFICER Scanned. Due on due Goal Tobacco Use. Due [...] Patient reports 50% relief with pain medications. low back pain Severity level i s 9. Duration: chronic. The problem is stable. It occurs persistently. Location of pain is lower back and abdominal pain. Symptoms are aggravated by daily activities and overuse. Symptoms are relieved by pain meds/drugs and rest. 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 - He is present here today with his mother who contributed to the discussion of the patient's care. - Chronic low back pain. Pain 03/25. - Notes increased muscle spasms in low back. - Reports benefit with massages for his low back and hip pain. - An [employer] SCS trial was previously ordered for his low back pain. He has not yet scheduled it. He will plan to schedule it during [place] break as he is currently in school. - Chronic abdominal pain. - Notes increased sharp shooting pain in the abdomen. - Currently prescribed Megargel 5-325mg MAX 2/day. Presents 1 day short. [...] block was the most relieving for him. Megargel 5-325mg #15 tabs per moth provide 50% [...] tightness or pain. No other concerns today. Comments: Santosh drea montenegrolaquita virtually via [employer] for a follow up in the setting [...] improving. Symptoms are relieved by pain meds/drugs. low back pain Severity level i s [...] used with no benefit. Interested in restarting Megargel 5/325mg r/t his flare. Has been using [...] of digestive issues and currently works with [employer] regarding these symptoms. He had a DRG [...] limitation and an improved quality of life. Comments: Santosh montenegroents for virtual follow up [...] sitting a lot during his travels to [place] which caused a lot of his pain to return. Inquires about other options for pain control including an ablation and medical cannabis. Would like to trial a DRFW.He has been off Megargel for ~1 month. Has been using Tylenol, lidocaine patches, and menthol spray with benefit, though the relief is short lived (~3 hours).Would like to be certified for medical cannabis with the goal of better pain management and remaining off of chronic opioid therapy for terminal gauger use. No other concerns to note. low back pain Severity level i s 7. Duration: chronic. The problem is worsening. It occurs persistently. Location of pain is lower back and left sided. Abdominal pain Severity is 5. D uration is chronic. It occurs constantly. The problem is unchanged. Location is and lower left back. Comments: Santosh montenegroents for virtual follow up [...] for long hours while driving back from [place]. Inquires about a small script of Megargel to manage his pain in the car.He is able to manage his pain well with more conservative measures including stretching and ice/heat. This has allowed him to wean off his long-term Megargel 5-325mg, last dose taken a few weeks [...] allowed him to being weaning off his Megargel 10-325mg. No refill needed today. No other [...] he is currently managing his pain with Megargel 10/325 at max 3/day, occasionally takes up [...] factors include ice, meds and changing positions. Comments: Santosh is a 23 y/o male [...] who participates in today's discussion. Abdominal pain Duration is engineer steam ann. Location is and low back left lower extremity. Abdominal pain Severity is 6. D uration [...] note, he will be starting school at [employer] in the fall for [employer].Current medication regimen provides 50% pain relief for increased functionality. Presents on track with prescribed medication. Denies side effects from current medication regimen. States he would like to begin a taper off of Megargel. No other concerns today. Comments: Santosh pr [...] He has discussed this with Lance from [employer] and is scheduled for reprogramming next week [...] ice and medications. Abdominal pain Duration is engineer steam ann. Comments: Santosh simon for follow up and wound check d/t onset of pain and swelling at incision sites s/p DRG implant on 08/29/[address] Navas. Notes his swelling continues to fluctuate and still having pain incision sites, most aggravated by prolonged positioning while driving. Has been using his back brace, icing regularly, alternating between Megargel and Advil. States his swelling seems to [...] other concerns today. Abdominal pain Duration is engineer steam ann. Comments: Santosh simon for follow up [...] other concerns today. Abdominal pain Duration is engineer steam ann. Comments: Santosh is a 22 y/o male [...] he would like to taper off of Megargel eventually. Denies side effects from current medication regimen. No other concerns today. Abdominal pain Severity is 5. D uration [...] he would like to taper off of Megargel eventually. Denies side effects from current medication regimen. No other concerns today. Abdominal pain Severity is 7. D uration is chronic. It occurs constantly. The problem is unchanged. Comments: Santosh is a 22 y/o man [...] he would like to taper off of Megargel eventually. Denies side effects from current medication regimen. No other concerns today. Abdominal pain Severity is 8. D uration is chronic. It occurs constantly. The problem is unchanged. The client describes it as aching and sharp. Symptom is aggravated by lying down, bending over, prolonged sitting, prolonged standing, lifting, housework, running and twisting. Relieving factors include medications and epsom baths. Comments: Santosh pr esents for a follow [...] as he has noticed decreased efficacy of Megargel 5-325mg. Inquires about trailing a new medication. Continues to benefit with PT and acupuncture. Denies side effects from current medication regimen. Abdominal pain Duration is engineer steam ann. It occurs constantly. The problem is unchanged. Location is diffuse. The client describes it as aching and sharp. Symptom is aggravated by movement, prolonged sitting and prolonged standing. Relieving factors include rest and medications. Abdominal pain Severity is 3. D uration [...] recently completed an updated lumbar MRI at [facility], inquires about results. He is interested in [...] other concerns today. Abdominal pain Duration is engineer steam ann. It occurs constantly. The problem is unchanged. Location is diffuse. The client describes it as aching, burning and sharp. Symptom is aggravated by movement, bending over, prolonged sitting and prolonged standing. Relieving factors include change in position, rest and medications. Comments: Santosh simon for a follow up [...] medication regimen. No other concerns today. Comments: Steph deng [...] other concerns today. Abdominal pain Severity is 5. D uration is chronic. The client describes it as [...] gotten an injection in his back from [facility], reports no relief. S/p hypogastric plexus nerve [...] down, RX meds, changing positions and ice. Abdominal pain Severity is 8. D uration is chronic. It occurs constantly. The problem is unchanged. The client describes it as aching and sharp. Symptom is aggravated by movement, prolonged sitting and prolonged standing. Relieving factors include rest, medications and ice. Comments: Steph deng presents for follow-up. He is followed for chronic abdominal pain. Reports pain has been relatively stable since [facility]. S/p 08/23/2021 left abdominal wall TPIs with Dr. Galdamez. Patient detailed significant benefit with injections and stated his pain had been almost completely resolved. Reported 85%+ benefit and details increased quality of life. Now details that his pain has returned to baseline. Reports he has also gotten an injection in his back from [facility], reports no relief. Scheduled for hypogastric nerve [...] is not accompanied. No other concerns today. Comments: Steph deng [...] factors include ice and medications. Abdominal pain Severity is 2. D uration is chronic. It occurs daily. The problem is improving. The patient describes it as sharp. Symptom is aggravated by housework and lifting. Relieving factors include medications and TENs. Abdominal pain (comments) Steph deng presents for [...] has no other concerns today. Abdominal pain Onset: sudden. S everity is 5. It occurs randomly. The patient describes it as aching, sharp, stabbing, throbbing and shooting. Symptom is aggravated by movement, bending over, prolonged sitting, prolonged standing, lifting, running and twisting. Relieving factors include medications and TENS Unit. Abdominal pain (comments) Steph deng is a 21 y/o male, here for initial consult in the setting of abdominal pain, referred by Kiki Ashton PA-C at [facility]. He is accompanied by his mother, Nancy, [...] endoscopy- all normal. He has met with [facility] in the past. He states they did find some E. Coli and he is managed on an antibiotic currently. Will be f/u with [facility] on Sunday07/29/21 as he is still [...] He is interested in injection options at [facility] today. No other concerns. Functional Status Date Functional Assessmen t No Information Instructions Date Instruction Additional Infor mation No Information Assessments Type Assessment Date No Information Patient Care Teams Name Effective Dates (start - stop) Status Members No Information
--- OUTSIDE RECORDS SUMMARY | 2025-06-04 08:07 | XMS_ITS | Continuity of Care Document ---
Author Organization [facility] Address [address] [address] Phone Care Team Providers Care Animal Care Giver Name Role Phone Ela Wall Unavailable Unavailab le Allergies, Adverse Reactions, Alerts Substance Reaction Status Criticality Penicillins Active No Information trimethoprim Active No Information sulfamethoxazole Active No Informat ion POTASSIUM CLAVULANATE Active No Inf ormation AMOXICILLIN TRIHYDRATE Active No In formation animal dander Active No Information Procedures Procedure Date Immunization Adm Single Pneumococcal Vaccine 2 yrs New Pt, Office Visit IV Advance Directives Directive Yes / No Effective Date File Name No Information Encounters Encounter Description Practice Location Reason(s) For Visit Diagnoses Date Provider Providers Copied on Encounter [facility], [address] [place] [address], [id number], tel:[phone] [facility] No Information 5 Giacomo [address]ood. [address], [address], [id number] , [place]. tel:[phone] [facility], [address] [place] [address], [id number], [place] tel:[phone] [facility] No Information 5 Giacomo [address]ood. [address], [address], [id number] , [place]. tel:[phone] [facility], [address] [place] [address], [id number], [place] [phone] [facility] No Information 5 Gi[address]. [address], [address], [place], [place], [id number] , . [phone] New Pt, Office Visit IV [facility], [address], [place], [place], [id number], tel:[phone] [facility] New patient consult (chief complaint)P ertinent health history (chief complaint) Infectious disease Mar- 5 Gi[address]. [address], [place], [place], [id number] , . [phone] Family History Family Member Type Diagnosis Age At Onset No Information Immunizations Vaccine Date Status Comments Pneumo (2 yrs or older) (PPV23) administered Source: New Immuniza tion Record Pneumo (2 yrs or older) (PPV23) pending Source: New Immuniza tion Record Payers Payer name Insurance type Covered green party ID Authoriza tion(s) [employer] O[employer] In [place] CI [id number] [employer] In Id CI [id number] Social History Type Description Quantity Date Captured Comments Sex Male Smoking Status No Information Chief Complaint And Reason For Visit No Information Reason For Referral Reason For Referral No Information Plan Of Treatment Date Type Action Status Unknown Immunization Pneumo (2 yrs or older) (PPV 23) ordered History Of Present Illness Encounter Date Complaint History Of Prese nt Illness Pertinent health history The sym ptoms began 12 years ago. The symptoms are reported as being moderate. The symptoms occur relapsing/remitting. Aggravating factors include stress, activity. Relieving factors include rest, fluids, antibiotics. Associated symptoms include fatigue, sore throat, ear pain, sinus fullness/pressure, lymphadenopathy (cervical). The patient states the symptoms are chronic. 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 2012/2024 w/ PCR confirmation. In 2018-IgM inconclusive,but symptoms present. Recurrent ear/sinus infections. 2020-salivary stone not able to be mobilized with eventual mastoidectomy and PE tubes placed with inpatient admission. Chronic HSV1. 2017-CDiff & Campylobacter. Hx of MRSA.Notes post-viral arthralgia following 2018 MONO.Peds years-asthma, frequent use of steroidsLabs 03/06/2025 IgG 1007 mg/dL (550-1660 mg/dL)IgA 322 mg/dL (47-310 mg/dL)IgM 88 mg/dLNo previous antibody studiesNo known fam hx-PID, recurrent infectionDenies soft tissue infection/poor healing/lower respiratory infections New patient consult You are meet ing with MARTI Schumacher via [employer] video conferencing. This visit will be billed to your insurance company as a telemedicine video consult. Which state is the [place] located in: [place]caregiver elect to proceed with the telemedicine visit: Yes Staff member initiating visit and consent: SVPresent for Visit: Fidencio (Patient) Radha (Patients Mother) Patient Presents for: Recurrent Upper Respiratory Infections, patient and patients mom (Radha) reports concerns over the frequency of Fidencio's (patient) illness. Functional Status Date Functional Assessmen t No Information Instructions Date Instruction Additional Infor mation No Information Assessments Type Assessment Date No Information Patient Care Teams Name Effective Dates (start - stop) Status Members No Information
--- OUTSIDE RECORDS SUMMARY | 2025-06-04 08:07 | XMS_ITS | Continuity of Care Document ---
Author Organization [facility] Address [id number] [address] Phone Care Team Providers Care Clinical Sciences Professor Name Role Phone lEa Wall Unavailable Unavailab le Allergies, Adverse Reactions, [...] Diagnoses Date Provider Providers Copied on Encounter [facility], [address] [place] [address], [id number], tel:[phone] [facility] No Information [address]. [address], [address], [id number] , [place]. tel:[phone] [facility], [address] [place] [address], [id number], [place] tel:[phone] [facility] No Information [address] Gi[address], [address], [id number] , [place]. tel:[phone] [facility], [address] [place] [address], [id number], [place] [phone] [facility] No Information 5 Gi[address]. [address], [place], [place], [id number] , . tel:[phone] New Pt, Office Visit IV [facility], [address], [place], [place], [id number], tel:[phone] [facility] New patient consult (chief complaint)P ertinent health history (chief complaint) Infectious disease Mar- 5 Giacomo [address]ood. [address], [place], [place], [id number] , . [phone] Family History Family Member Type Diagnosis Age At Onset No Information Immunizations Vaccine Date Status Comments Pneumo (2 yrs or older) (PPV23) administered Source: New Immuniza tion Record Pneumo (2 yrs or older) (PPV23) pending Source: New Immuniza tion Record Payers Payer name Insurance type Covered democrat ID Authoriza tion(s) [employer] [place] [id number] [employer] [place] [id number] Social History Type Description Quantity Date Captured [...] are meet ing with MARTI Schumacher via [employer] video conferencing. This visit will be billed [...]
--- OUTSIDE RECORDS SUMMARY | 2025-06-05 20:16 | XMS_ITS | Clinical Summary ---
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 Cephalexin GI Upset,Hives High 01/03/2018 gastro Grass Pollen Itching 01/19/2021 Blood shot eyes, hives, runny nose Penicillin V Hives High 06/10/2021 Medications fluticasone (50 mcg per actuation) nasal solution (FLONASE)Indica tions:Allergy, sequela Inhale 1 Taylor into both nostrils once daily. 3 Bottle 3 6 Active valACYclovir 1 gram tabletIndicatio ns:Cold sore TAKE 1 TABLET (1 G) BY MOUTH TWO TIMES DAILY FOR 7 DAYS. 30 Tablet 5 5 Active gabapentin (NEURONTIN) 300 mg capsuleIndicati ons:Tear of left acetabular labrum, subsequent encounter,Nerve pain TAKE 1 CAPSULE BY MOUTH TWO TIMES DAILY. 180 Capsule 1 5 Active azelastine 137 mcg/actuation (ASTELIN) nasal sprayIndication s:Nasal congestion Inhale 1 Taylor into affected nostril(s) two times daily. 30 mL 3 5 Active triamcinolone (55 mcg each actuation) nasal (Nasacort) 55 mcg nasal sprayIndication s:Nasal congestion Inhale 2 Sprays in both nostrils once daily. 16.9 mL 3 5 Active montelukast (Singulair) 10 mg tabletIndicatio ns:Adenoid hypertrophy,Acu te allergic rhinitis Take 1 Tablet (10 mg) by mouth at bedtime. 60 Tablet 5 Active nystatin 100,000 unit/mL suspensionIndic ations:Thrush Swish and swallow 5 mL (500,000 units) by mouth four times daily. Use for 10 days 473 mL 5 Active methylPREDNISol one (Medrol (Ubaldo)) 4 mg tabletIndicatio ns:Eustachian tube dysfunction, left Take by mouth as instructed per packaging. 21 Tablet 5 Active doxycycline hyclate 100 mg capsuleIndicati ons:Productive cough Take 1 Capsule (100 mg) by mouth two times daily for 7 days. 14 Capsule 5 06/10/20 25 Active clotrimazole (MYCELEX JARAD) 10 mg trocheIndicatio ns:Sore throat Dissolve 1 Tablet (10 mg) in the mouth 5 times daily for 14 days. 70 Tablet 5 05/22/20 25 Active Problems Problem Noted Date Diagnosed Date S/p left hip arthroscopic la bral repair, subspine, femoroplasty and synovial biopsy/mass removal on 10/15/[address] Jayden Pineda 12/22/2024 Irritable bowel syndrome with diarrhea 2 S/P laparoscopic appendectomy 01/04/2022 Asthma 08/03/2021 Salivary gland stone 12/21/2020 Overview (12/21/2020): left submandibular duct MIRACLE (generalized anxiety disorder) 07/27/2016 Panic disorder (episodic par oxysmal anxiety) without agoraphobia 07/27/2016 Adjustment disorder with anxious mood 07/26/2016 PTSD (post-traumatic stress disorder) 06/01/2016 Psychophysiological insomnia 06/01/2016 Lumbar radicular pain 04/24/2016 Lumbar spondylolysis 05/19/2015 Resolved Problems Problem Noted Date Diagnosed Date Resolved Date Concussion 05/29/2013 12/21/2020 Overview (04/15/2014): 05/2013 MRSA (methicillin resistant staph aureus) culture positive 12/07/2012 12/21/2020 Overview (11/05/2017): Rash 12/05/12. 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 12/21/2020 Overview (02/03/2009): Recurrent on his right ear - diagnosed by positive PCR Undiagnosed cardiac murmurs 06/16/2008 12/21/2020 Encounters Date Type Department Care Team Description 06/03/2025 12:00 PM [employer] STAP[employer]ER WELT Ancillary Procedure [facility] [address] [place] [address] Arrived 06/03/2025 Orders Only [facility] [place] [address] [place] [phone] Yolette Hinds PA <No scans attached> 06/03/2025 Travel 06/01/2025 2:00 PM [employer] Office Visit [facility] [place] [address] [place] [address] Yolette Hinds PA Throat Problem (throat pain) 06/01/2025 11:45 AM [employer] Office Visit [facility] [address] [place] [address] Jaye Cole, [facility] Individual Therapy 06/01/2025 Travel 05/25/2025 2:00 PM [employer] Office Visit [facility] [address] [facility] [address] [place] [address] Eleanor Bass MD Ear Problem 05/25/2025 Travel 05/25/2025 Nurse Triage [facility] [address] [facility] [place] [address] Jessie Day PA Ear Problem 05/13/2025 7:30 AM CDT Office Visit [facility] [address] [place] [address] Yolette Hinds PA Recheck (chronic sinusitis and lymphadenopathy) 05/13/2025 Travel 05/11/2025 11:45 AM CDT Office Visit [facility] [address] [place] [address] Jaye Cole [employer] Individual Therapy 05/11/2025 Travel 05/08/2025 11:30 AM CDT Office Visit [facility] [address] [place] [address] Hoda Hawthorne PA Pharyngitis (sick on/off since January, had mono, still having pain and sensitivity on right side of neck, pain worsening over the last few days in throat) 05/08/2025 Travel 05/01/2025 Travel 04/28/2025 1:00 PM CDT Ancillary Procedure [facility] [address] [place] [address] 04/28/2025 Travel 04/23/2025 11:00 AM CDT Telemedicine [facility] [address] [place] [address] Jaye Cole [employer] Individual Therapy; Telehealth 04/23/2025 Travel 04/14/2025 1:30 PM CDT Office Visit [facility] [address] [place] [address] Amanda Oseguera PA Consult 04/14/2025 11:30 AM CDT Ancillary Procedure [facility] [address] [place] [address] 04/14/2025 Travel 04/09/2025 1:30 PM CDT Office Visit [facility] [address] [address] Kena Rojas MD Consult (Recurrent URI) 04/09/2025 Travel 04/07/2025 10:45 AM CDT Telemedicine [facility] [address] [facility] [address] Jaye Cole LICSW Individual Therapy; Telehealth 04/06/2025 Travel 03/30/2025 2:15 PM CDT Office Visit [facility] [address] [place] [address] Jaye Cole LICSW Individual Therapy; [facility] 03/30/2025 Travel 03/23/2025 3:00 PM CDT Office Visit [facility] [address] [facility] [address] Jaye Cole [employer] Individual Therapy 03/23/2025 11:30 AM CDT Office Visit [facility] [address] [place] [address] Jessie Day PA Follow Up (Still not feeling well - has appt on Sunday, should he have follow up labs before appt? He has a lot of questions. Wondering about another round of prednisone.) 03/23/2025 Travel 03/09/2025 2:15 PM CDT Office Visit [facility] [address] [facility] [place] [address] Jaye Cole LICSW Individual Therapy 03/09/2025 Travel 03/06/2025 2:40 PM CDT Office Visit [facility] [address] [place] [address] Jessie Day PA Follow Up (Would like to discuss recurrent mono infections / check rash on neck) 03/06/2025 Travel from Last 3 Months Immunizations Immunization Administration Dates Next Due AMB Influenza, IIV3 (Age >=3 years) Preserve Free (Flu Clinic Only) 05/20/2012,05/17/2011 AMB Influenza, IIV3 (Age >=3 years)(Flu Clinic Only) 05/23/2010,04/24/2009,05/29/2008 AMB Influenza, IIV4 PF (=>6 mos Flulaval,Fluzone Fluarix)(Flu Clinic Only) 04/23/2020,04/26/2018,05/17/2017,04/16 COVID-19 vaccine ([employer]-Bio NTech 30mcg/0.3mL) PF, MDV 06/17/2021,09/18/2020,08/28/2020 DTaP 05/09/2004, 0,1999,06/16 DTaP-HIB (TriHIBIT) 08/15/2000 HIB PRP-T (ActHIB,Hiberix) 1999,1999 ,1999 Hepatitis A (Peds) 02/24/2016,03/11/2013 014 Hepatitis B (Adult) 03/06/2000,1999,1999 Hepatitis B (Peds) 03/06/2000,1999, 000 Human Papilloma Virus Vaccine 09/11/2013, 013,03/11/2013 04/11/2013 Inactivated Polio Vaccine 05/09/2004,,1999,06/16 Influenza A (H1N1), Inactivated 05/31/2009 Influenza Virus, Unspecified 06/12/2005,06/12/20 05 Influenza, IIV3 (Age 6-35 mos) 05/20/2012,2010 Influenza, IIV3 (Age >=3 years) 05/05/20 13,05/23/2010,04/24/2009,05/16,06/15/2007,06/13/2006,07/18/19 06 Influenza, IIV4 05/22/2022,,08/12/2019,08/2016,04/26/2016,05/12/2015,05/08/20 14 MENINGOCOCCAL VACCINE 2 VIAL 2MO-55YO (MENVEO) 02/24/2016,03/08/2012 MMR 05/09/2004,08/15/2000 Pneumococcal Poly,23-Valent (Pneumovax) 04/15/2025 Pneumococcal conj 7-Valent ( Prevnar 7) 08/15/2000,05/10/2000,03/06/2000 Tdap 03/08/2012 Varicella Vaccine 06/25/2007,08/15/2000 Family History Medical History Relation Name Comments Other Father Urethral stenos is Hypertension Mother Hypertension Paternal Grandmother Anesthesia Malignant Hyperthermia No Family History Anesthesia Problem No Family History Relation Name Status Comments Father Alive Maternal Grandfather Maternal Grandmother Mother Alive Paternal Grandfather Paternal Grandmother Alive Sister 1 Alive Sister 2 Alive Social History Tobacco Use Types Packs/Day Years Used Date Smoking Tobacco: Never Smokeless Tobacco: Never Tobacco Cessation:Counseling Given: No Comments:no exposure Alcohol Use Standard Drinks/Week Comments Not Currently 0 (1 standard drink = 0.6 oz pur e alcohol) rarely PHQ-2 Answer Date Recorded PHQ-2 TOTAL SCORE 5 04/23/2025 Social Connections Answer Date Recorded Do you often feel lonely or isolated from those around you? 0 01/26/2025 Financial Resource Strain Answer Date R ecorded Difficulty of Paying Living Expenses 3 01/26/2025 Difficulty of Paying Living Expenses Not on file 01/26/2025 Food Insecurity Answer Date Recorded Do you worry your food will run out before you are able to buy more? 1 01/26/2025 Transportation Needs Answer Date Record ed Does lack of transportation keep you from medica l appointments? 1 01/26/2025 Does lack of transportation keep you from work, meetings or getting things that you need? 1 01/26/2025 Housing Stability Answer Date Recorded What is your housing situation today? 1 01/26/2025 Utilities Answer Date Recorded Do you have trouble paying f or utilities (for example, heat, electricity, water, phone)? 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 Not on file Not on file Not on file Obstetrics History Last Filed Vital Signs Vital Sign Reading Time Taken Comments Blood Pressure 152/84 05/25/2025 2:09 PM [employer] ST[employer]ER [employer]ELT Pulse 89 05/25/2025 2:09 PM [employer] Temperature 36.8 C (98.2 F) 05/25/2025 2:09 PM [employer]T Respiratory Rate 18 05/25/2025 2:09 PM [employer]ELT Oxygen Saturation 98% 05/25/2025 2:09 PM [employer]ELT Inhaled Oxygen Concentration - - Weight 79.4 kg (175 lb) 05/25/2025 2:09 PM [employer]T Height 180.3 cm (5' 11) 04/09/2025 1:35 PM CDT Body Mass Index 24.41 04/09/2025 1:35 PM CDT Plan of Treatment Upcoming Encounters Date Type Department Care Team (Late st Contact Info) Description 06/12/2025 2:30 PM [employer]ER [employer]ELT Office Visit [facility] [address] [place] [address] Dom Acuna AuD [address] [place] [phone] 06/15/2025 3:00 PM [employer]T Office Visit [facility] [address] [place] [phone] Jaye Cole [facility] [address] [place] [address] 06/30/2025 10:45 AM [employer]T Telemedicine [facility] [address] [place] [phone] Jaye Cole [facility] [address] [place] [address] 06/30/2025 2:00 PM [employer]T Office Visit [facility] [place] [address] [place] [phone] Angelika Cao MD [address] [facility] [address] [place], [place] [id number] Health Maintenance Due Date Last Done Comments Hepatitis C screening for age 18-79 2017 Tetanus booster 03/08/2022 03/08/2012 Influenza Vaccine (#1) 2025 2, 04/12/2021, 04/23/2020, Additional history exists BMI (ht and wt on same day) for age 18+ 04/09/2026 04/09/2025, 06/23/2024, 09/28/2023, Additional history exists Depression screening for age 12+ 04/23/2026 04/23/2025, 04/09/2025, 01/26/2025, Additional history exists RSV vaccine for adults or (1 - 1-dose 75+ series) 2074 Hepatitis B series for 19+ Completed 03/06, 03/06/2000, 1999, Additional history exists HPV series for age 9-45 Completed 09/11/19 14, 05/05/2013, 03/11/2013 HIV for age 15-65 Completed 04/09/2025, , 05/05/2019 Pneumococcal series for age 6-49 Aged Out 04/15/2025, 08/15/2000, 05/10/2000, Additional history exists No longer eligible based on patient's age to complete this topic Procedures Procedure Name Priority Date/Time Associated Diagnosis Comments XR CHEST 2 VIEWS PA AND LATERAL Routine 06/03/2025 12:06 PM [employer]ER [employer]ELT Acute cough Productive cough SADIA PREP, OTHER SOURCE Routine 2:36 PM [employer]LE STAP[employer]ER WELT Mouth pain C-REACTIVE PROTEIN Add On 05/25/2025 2: 27 PM [employer] STAP[employer]ER WELT Fatigue, unspecified type SEDIMENTATION RATE Add On 05/25/2025 2: 27 PM SO[employer] STAP[employer]ER WELT Fatigue, unspecified type CBC WITH AUTO DIFFERENTIAL Routine 05/25/2025 2:27 PM SOLE STAPLER WELT Fatigue, unspecified type ISTAT CHEM 8 Routine 05/25/2025 2:27 PM SOLE STAPLER WELT Fatigue, unspecified type COMP METABOLIC PANEL STAT 05/25/2025 2:27 PM SOLE STAPLER WELT Fatigue, unspecified type CBC WITH AUTO DIFFERENTIAL Routine 05/25/2025 2:27 PM SOLE STAPLER WELT Fatigue, unspecified type THROAT RAPID STREP ONLY CLINIC Routine 05/08/2025 11:36 AM CDT Sore throat US NECK OR HEAD SOFT TISSUE Routine 04/28/2025 1:39 PM CDT LAD (lymphadenopathy), cervical CT SINUS WO Routine 04/14/2025 11:37 AM CDT Recurrent infections ANTI HIV 1/2 Routine 04/09/2025 2:38 PM CDT Recurrent infections RUBELLA IMMUNE STATUS Routine 04/09/2025 2:38 PM CDT Immunity status testing MUMPS IMMUNE STATUS Routine 04/09/2025 2 :38 PM CDT Immunity status testing RUBEOLA IMMUNE STATUS Routine 04/09/2025 2:38 PM CDT Immunity status testing CMV IGG ANTIBODY [address]1780 Routine 2:38 PM CDT Recurrent infections CMV IGM ANTIBODY Routine 04/09/2025 2:38 PM CDT Recurrent infections MEGHAN MITTAL VIRUS DNA QUANT PCR BLOOD Routine 04/09/2025 2:38 PM CDT EBV infection SEDIMENTATION RATE Routine 04/09/2025 2: 38 PM CDT EBV infection C-REACTIVE PROTEIN Routine 04/09/2025 2: 38 PM CDT EBV infection HEPATIC FUNCTION PANEL Routine 3:43 PM CDT Recurrent upper respiratory infection (URI) Meghan Mittal virus infection IGM Routine 03/06/2025 3:43 PM CDT Recurrent upper respiratory infection (URI) Meghan Mittal virus infection IGG Routine 03/06/2025 3:43 PM CDT Recurrent upper respiratory infection (URI) Meghan Mittal virus infection IGA Routine 03/06/2025 3:43 PM CDT Recurrent upper respiratory infection (URI) Meghan Mittal virus infection MEGHAN MITTAL VIRUS DNA QL PCR (BLOOD & NON BLD)REALTIME Routine 03/06/2025 3:43 PM CDT Recurrent upper respiratory infection (URI) Meghan Mittal virus infection from Last 3 Months Results * XR CHEST 2 VIEWS PA AND LATERAL (06/03/2025 12:06 PM SOLE STAPLER WELT) Anatomical Region Laterality Modality CHEST, THORAX, Lung, HEART Compu adilene Radiography 06/03/2025 3:22 PM SOLE STAPLER WELT Impressions 06/03/2025 3:22 PM SOLE STAPLER WELT No acute findings. Dictated by Terry Blum MD @ 06/03/2025 3:22:13 PM (Electronically Signed) Narrative 06/03/2025 3:22 PM [employer]LE ST[employer]ER [employer]ELT For Patients: As a result of the Cures Act, medical imaging exams and procedure reports are released immediately into your electronic medical record. You may view this report before your referring provider. If you have questions, please contact your health care provider. INDICATION: Productive cough Acute cough TECHNIQUE: Chest 2 views COMPARISON: None FINDINGS: Cardiovascular and mediastinum: Heart size and vasculature are normal in caliber and appearance. Lungs and pleural spaces: Lungs are clear. No sign of infiltrate or mass. No sign of pleural effusion. No pneumothorax. Bones and soft tissues: No significant findings. Procedure Note Terry Blum MD - 06/03/2025 For Patients: As a result of the Cures Act, medical imagingexams and procedure reports are released immediately into your electronicmedical record. You may view this report before your referring provider.If you have questions, please contact your health care provider. INDICATION: Productive cough Acute cough TECHNIQUE: Chest 2 views COMPARISON: None FINDINGS: Cardiovascular and mediastinum: Heart size and vasculature are normal incaliber and appearance. Lungs and pleural spaces: Lungs are clear. No sign of infiltrate ormass. No sign of pleural effusion. No pneumothorax. Bones and soft tissues: No significant findings. IMPRESSION: No acute findings. Dictated by Terry Blum MD @ 06/03/2025 3:22:13 PM (Electronically Signed) Yolette [facility] Final Re sult * SADIA PREP, OTHER SOURCE (06/01/2025 2:36 PM SOLE STAPLER WELT) Pathologist [facility] OBSERVATION No fungal elements seen 06/02/2025 3:55 AM SOLE STAPLER WELT [facility] Other ORAL CAVITY SPECIMEN / Unknown Non-Blood / Unknown 06/01/2025 2:36 PM SOLE STAPLER WELT 06/01/2025 4:21 PM SOLE STAPLER WELT Yolette ALLEN [facility] Final Re sult Performing Organization Address City/[facility]/ZIP Co de Phone Number [facility] [address] [address], * SEDIMENTATION RATE (05/25/2025 2:27 PM SOLE STAPLER WELT) Only the most recent of2 resultswithin the time period is included. Pathologist [facility] SED RATE BY MODIFIED WESTERGREN 2 < OR = 15 mm/h 05/26/2025 3:50 AM SOLE STAPLER WELT [facility] Blood BLOOD SPECIMEN / Unknown [facility] / Unknown 05/25/2025 2:27 PM SOLE STAPLER WELT 05/25/2025 3:07 PM [employer]ELT Eleanor Bass MD HEMATOLOGY Final Result [facility] [address] [address], [place] [phone] * CBC WITH AUTO DIFFERENTIAL (05/25/2025 2:27 PM SOLE STAPLER WELT) [facility] WHITE BLOOD CELL COUNT 8.1 3.8 - 10.8 Thousand/u L 05/25/2025 2:35 PM [employer]ER [employer]ELT [facility] RED BLOOD CELL COUNT 5.00 4.20 - 5.80 Million/uL 05/25/2025 2:35 PM [employer]T [facility] HEMOGLOBIN 15.6 13.2 - 17.1 g/dL 05/25/2025 2:35 PM [employer]ELT [facility] HEMATOCRIT 45.6 38.5 - 50.0 % 05/25/2025 2:35 PM [employer]T [facility] MCV 91.2 80.0 - 100.0 fL 05/25/2025 2:35 PM [employer]ELT [facility] MCH 31.2 27.0 - 33.0 pg 05/25/2025 2:35 PM [employer]ELT [facility] MCHC 34.2 32.0 - 36.0 g/dL 05/25/2025 2:35 PM [facility] Comment: For adults, a slight decrease in the calculated MCHC value (in the range of 30 to 32 g/dL) is most likely not clinically significant; however, it should be interpreted with caution in correlation with other red cell parameters and the patient's clinical condition. RDW 12.4 11.0 - 15.0 % 05/25/2025 2:35 PM [facility] PLATELET COUNT 278 140 - 400 Thousand/u L 05/25/2025 2:35 PM [facility] MPV 9.6 7.5 - 12.5 fL 05/25/2025 2:35 PM [facility] NEUTROPHILS 59.4 % 05/25/2025 2:35 PM [facility] LYMPHOCYTES 30.6 % 05/25/2025 2:35 PM [facility] MONOCYTES 9.4 % 05/25/2025 2:35 PM [employer] EOSINOPHILS 0.4 % 05/25/2025 2:35 PM [facility] BASOPHILS 0.2 % 05/25/2025 2:35 PM [facility] ABSOLUTE NEUTROPHILS 4811 1500 - 7800 cells/uL 05/25/2025 2:35 PM [facility] ABSOLUTE LYMPHOCYTES 2479 850 - 3900 cells/uL 05/25/2025 2:35 PM [employer] ABSOLUTE MONOCYTES 761 200 - 950 cells/uL 05/25/2025 2:35 PM [employer] ABSOLUTE EOSINOPHILS 32 15 - 500 cells/uL 05/25/2025 2:35 PM [employer]T [facility] ABSOLUTE BASOPHILS 16 0 - 200 cells/uL 05/25/2025 2:35 PM [employer]ELT [facility] Blood BLOOD SPECIMEN / Unknown [facility] / Unknown 05/25/2025 2:27 PM [employer]ELT 05/25/2025 2:30 PM [employer]ELT Eleanor Bass MD HEMATOLOGY Final Result [facility] [address] [place] [address], [facility] [address] [place] [address], [place] * CHEM8 BMP ISTAT [[id number]] (05/25/2025 2:27 PM SOLE STAPLER WELT) POCT, SODIUM, ISTAT 140 138 - 146 mmol/L 05/25/2025 2:38 PM [facility] POCT, POTASSIUM, ISTAT 3.8 3.5 - 4.9 mmol/L 05/25/2025 2:38 PM [employer] POCT, CHLORIDE, ISTAT 103 98 - 109 mmol/L 05/25/2025 2:38 PM [employer] POCT, CARBON DIOXIDE, ISTAT 25 24 - 29 mmol/L 05/25/2025 2:38 PM [employer] POCT, GLUCOSE ISTAT 101 70 - 105 mg/dL 05/25/2025 2:38 PM [employer] POCT, CALCIUM, IONIZED, ISTAT 4.8 4.5 - 5.3 mg/dL 05/25/2025 2:38 PM [employer]ELT [facility] POCT, UREA NITROGEN (BUN) ISTAT 12 8 - 26 mg/dL 05/25/2025 2:38 PM [employer] POCT,CREATININ E, ISTAT 1.0 0.6 - 1.3 mg/dL 05/25/2025 2:38 PM [employer] Blood BLOOD SPECIMEN / Unknown [facility] / Unknown 05/25/2025 2:27 PM [employer]ELT 05/25/2025 2:30 PM [employer]ELT us Eleanor Bass MD CHEMISTRY Final Result Performing Organization Address City/[facility]/ZIP Co de Phone Number [facility] [address] [address], [place] [phone] [facility] [address] [place] [address], [place] * C-REACTIVE PROTEIN (05/25/2025 2:27 PM [employer] ST[employer]ER WELT) Only the most recent of2 resultswithin the time period is included. C-REACTIVE PROTEIN (MG/L) <3.0 <8.0 mg/L 05/26/2025 11:07 AM [employer] ST[employer]ER WELT [facility] Blood BLOOD SPECIMEN / Unknown [facility] / Unknown 05/25/2025 2:27 PM [employer]ELT 05/25/2025 3:07 PM [employer]ELT us Eleanor Bass MD CHEMISTRY Final Result [facility] [address] [address], [place] [phone] * (ABNORMAL) COMP METABOLIC PANEL (05/25/2025 2:27 PM [employer]ELT) SODIUM 139 136 - 145 mmol/L 05/25/2025 5:16 PM [employer] ST[employer]ER WELT [facility] POTASSIUM 4.2 3.5 - 5.1 mmol/L 05/25/2025 5:16 PM [facility] [facility]ELT [facility] CHLORIDE 100 98 - 107 mmol/L 05/25/2025 5:16 PM [facility] CO2,TOTAL 23 22 - 29 mmol/L 05/25/2025 5:16 PM [facility] ANION GAP 16 5 - 18 05/25/2025 5:16 PM [facility] GLUCOSE 98 70 - 99 mg/dL 05/25/2025 5:16 PM [facility] CALCIUM 10.4 8.8 - 10.4 mg/dL 05/25/2025 5:16 PM [facility] Comment: Reference ranges for this test were updated on 05/20/2024 to reflect our healthy population more accurately. Reference range changes are not retroactively applied to results, but previous results using the same methodology can be interpreted in the context of the new reference range. BUN 12 6 - 20 mg/dL 05/25/2025 5:16 PM [facility] CREATININE 1.01 0.70 - 1.20 mg/dL 05/25/2025 5:16 PM [facility] BUN/CREAT RATIO 12 10 - 20 5:16 PM [facility] eGFR >90 >90 mL/min/1.7 3m2 05/25/2025 5:16 PM [facility] Comment:As of 2021, eG FR is calculated by the CKD-EPI creatinine equation without race adjustment. eGFR can be influenced by muscle mass, exercise, and diet. The reported eGFR is an estimation only and is only applicable if the renal function is stable. ALBUMIN 5.3(H) 4.0 - 4.9 g/dL 05/25/2025 5:16 PM [facility] PROTEIN,TOTAL 7.7 6.0 - 8.0 g/dL 05/25/2025 5:16 PM [facility] BILIRUBIN,TOTAL 0.5 0.0 - 1.2 mg/dL 05/25/2025 5:16 PM [facility] ALK PHOSPHATASE 64 40 - 129 IU/L 05/25/2025 5:16 PM [facility] ALT (SGPT) 11 10 - 50 IU/L 05/25/2025 5:16 PM [facility] AST (SGOT) 19 10 - 50 IU/L 05/25/2025 5:16 PM [facility] Blood BLOOD SPECIMEN / Unknown [facility] / Unknown 05/25/2025 2:27 PM SOLE STAPLER WELT 05/25/2025 2:30 PM SOLE STAPLER WELT Eleanor Bass MD CHEMISTRY Final Result Performing Organization Address City/[facility]/ZIP Co de Phone Number [facility] [address] [place] [address] * POCT Throat Rapid Strep (05/08/2025 11:36 AM CDT) [facility] POC, GROUP A STREP NOT DETECTED NOT DETECTED 05/08/2025 11:56 AM CDT [facility] Comment: The [place] [employer] recommends that a throat culture be performed if a rapid group A streptococcus assay yields a negative result. [employer] recommends Streptococcus, Group A culture. Throat SPECIMEN FROM THROAT / Unknown Non-Blood / Unknown 05/08/2025 11:36 AM CDT 05/08/2025 11:46 AM CDT Hoda ALLEN MICROBIOLOGY Final Result Performing Organization Address City/[facility]/ZIP Co de Phone Number [facility] [address] [address], [place] [phone] [facility] [address] [place] [address], [place] [phone] * US NECK OR HEAD SOFT TISSUE (04/28/2025 1:39 PM CDT) Anatomical Region Laterality Modality NECK Ultrasound 04/29/2025 10:5 1 AM CDT Narrative 04/29/2025 10:51 AM CDT For Patients: As a result of the Cures Act, medical imaging exams and procedure reports are released immediately into your electronic medical record. You may view this report before your referring provider. If you have questions, please contact your health care provider. Indication: LAD (lymphadenopathy), cervical Technique: Grayscale and color Doppler ultrasound of the right neck soft tissues performed. Comparison: CT 01/21/2025 Findings: Mildly prominent right cervical lymph nodes are present which measure 1.6 x 1.1 x 0.7 cm and 2.2 x 1.5 x 0.6 cm. No abnormal vascularity. No abscess. Impression: Mildly reactive right cervical lymph nodes. Dictated by Terry Blum MD @ 04/29/2025 10:51:08 AM (Electronically Signed) Procedure Note Terry Blum MD - 04/29/2025 For Patients: As a result of the Cures Act, medical imagingexams and procedure reports are released immediately into your electronicmedical record. You may view this report before your referring provider.If you have questions, please contact your health care provider. Indication: LAD (lymphadenopathy), cervical Technique: Grayscale and color Doppler ultrasound of the right neck soft tissuesperformed. Comparison: CT 01/21/2025 Findings: Mildly prominent right cervical lymph nodes are present which measure 1.6x 1.1 x 0.7 cm and 2.2 x 1.5 x 0.6 cm. No abnormal vascularity. Noabscess. Impression: Mildly reactive right cervical lymph nodes. Dictated by Terry Blum MD @ 04/29/2025 10:51:08 AM (Electronically Signed) us Amanda ALLEN US Final Resul t * CT SINUS WO (04/14/2025 11:37 AM CDT) Anatomical Region Laterality Modality SINUS Computed Tomogra phy 04/14/2025 2:42 PM CDT Impressions 04/14/2025 2:42 PM CDT 1. Bilateral maxillary sinuses are clear. No air-fluid levels. Ostiomeatal complexes are patent. 2. Remaining visualized paranasal sinuses are clear. 3. No facial fractures Please note that all CT scans at this facility use dose modulation, iterative reconstruction, and/or weight-based dosing when appropriate to reduce radiation dose to as low as reasonably achievable. Dictated by Juliocesar uGtiérrez MD @ 04/14/2025 2:42:00 PM (Electronically Signed) Narrative 04/14/2025 2:42 PM CDT For Patients: As a result of the Cures Act, medical imaging exams and procedure reports are released immediately into your electronic medical record. You may view this report before your referring provider. If you have questions, please contact your health care provider. INDICATION: Recurrent sinusitis. COMPARISON: None. TECHNIQUE: Noncontrast CT of the paranasal sinuses. FINDINGS: Bilateral maxillary sinuses are clear. No air-fluid levels. Ostiomeatal complexes are patent. Slight nasoseptal deviation to the left measured approximate 2 electronic equipment set up operator midline. Nasal cavity is otherwise clear. Frontal sinuses ethmoid air cells are clear. Sphenoid sinuses are clear. Bilateral sphenoid ostia patent. Right mastoid air cells are clear. Postop changes of left canal wall up mastoidectomy. No facial fractures. Normal orbits bilaterally. Procedure Note Juliocesar Gutiérrez MD, PhD - 04/14/2025 For Patients: As a result of the Cures Act, medical imagingexams and procedure reports are released immediately into your electronicmedical record. You may view this report before your referring provider.If you have questions, please contact your health care provider. INDICATION: Recurrent sinusitis. COMPARISON: None. TECHNIQUE: Noncontrast CT of the paranasal sinuses. FINDINGS: Bilateral maxillary sinuses are clear. No air-fluid levels. Ostiomeatalcomplexes are patent. Slight nasoseptal deviation to the left measured approximate 2 ministermidline. Nasal cavity is otherwise clear. Frontal sinuses ethmoid air cells are clear. Sphenoid sinuses are clear.Bilateral sphenoid ostia patent. Right mastoid air cells are clear. Postop changes of left canal wall up mastoidectomy. No facial fractures. Normal orbits bilaterally. IMPRESSION: 1. Bilateral maxillary sinuses are clear. No air-fluid levels. Ostiomeatalcomplexes are patent. 2. Remaining visualized paranasal sinuses are clear. 3. No facial fractures Please note that all CT scans at this facility use dose modulation,iterative reconstruction, and/or weight-based dosing when appropriate toreduce radiation dose to as low as reasonably achievable. Dictated by Juliocesar Gutiérrez MD @ 04/14/2025 2:42:00 PM (Electronically Signed) us Kena Rojas MD CT Final Re sult * MEGHAN MITTAL VIRUS DNA QUANT PCR BLOOD (04/09/2025 2:38 PM CDT) EBV DNA, QN PCR Not Detected Not Detected IU/mL 04/12/2025 2:07 PM CDT [facility] LOG10 EBV DNA, QN PCR Not Detected Not Detected log IU/mL 04/12/2025 2:07 PM CDT [facility] Comment: MDF med fusion [address] [facility] [address] [place] [address] Yash Diaz MD, PhD Blood BLOOD SPECIMEN / Unknown [facility] / Unknown 04/09/2025 2:38 PM CDT 04/09/2025 2:38 PM CDT Kena Rojas MD SEND OUTS Final Re sult Performing Organization Address [facility] de Phone Number [facility] [address] [address], [place] [phone] * RUBELLA IMMUNE STATUS (04/09/2025 2:38 PM CDT) Pathologist [facility] RUBELLA AB (IGG), IMMUNE STATUS 3.99 Index 04/10/2025 11:52 AM CDT [facility] Comment: Index Interpretation ----- <0.90 Not consistent with immunity 0.90-0.99 Equivocal > or = 1.00 Consistent with immunity The presence of rubella IgG antibody suggests immunization or past or current infection with rubella virus. Blood BLOOD SPECIMEN / Unknown [facility] / Unknown 04/09/2025 2:38 PM CDT 04/09/2025 2:38 PM CDT Kena Rojas MD SEND OUTS Final Re sult Performing Organization Address [facility]/ZIP Co de Phone Number [facility] [address] [address], [place] [phone] * (ABNORMAL) MUMPS IMMUNE STATUS (04/09/2025 2:38 PM CDT) Pathologist [facility] MUMPS VIRUS AB (IGG), IMMUNE STATUS <9.00(L) AU/mL 04/10/2025 11:47 AM CDT [facility] Comment: AU/mL Interpretation ------- <9.00 Not consistent with immunity 9.00-10.99 Equivocal >10.99 Consistent with immunity The presence of mumps IgG antibody suggests immunization or past or current infection with mumps virus. Blood BLOOD SPECIMEN / Unknown [facility] / Unknown 04/09/2025 2:38 PM CDT 04/09/2025 2:38 PM CDT Kena Rojas MD CHEMISTRY Final Re sult Performing Organization Address [facility] de Phone Number [facility] [address] [address], * CMV IGG ANTIBODY [id number] (04/09/2025 2:38 PM CDT) [facility] CYTOMEGALOVIRUS ANTIBODY (IGG) <0.60 U/mL 04/11/2025 4:17 PM CDT [facility] Comment: U/mL Interpretation ----- <0.60 Negative 0.60-0.69 Equivocal > or = 0.70 Positive A positive result indicates that the patient has antibody to CMV. It does not differentiate between an active or past infection. Blood BLOOD SPECIMEN / Unknown [facility] / Unknown 04/09/2025 2:38 PM CDT 04/09/2025 2:38 PM CDT us Kena Rojas MD SEND OUTS Final Re sult Performing Organization Address [facility] Co de Phone Number [facility] [address] [address], * RUBEOLA IMMUNE STATUS (04/09/2025 2:38 PM CDT) Pathologist [facility] MEASLES AB (IGG), IMMUNE STATUS 40.50 AU/mL 04/10/2025 11:47 AM CDT [email or web address] Comment: AU/mL Interpretation ----- <13.50 Not consistent with immunity 13.50-16.49 Equivocal >16.49 Consistent with immunity The presence of measles IgG suggests immunization or past or current infection with measles virus. For additional information, please refer to http://education.Trupanion/faq/SMX961 (This link is being provided for informational/ educational purposes only.) Blood BLOOD SPECIMEN / Unknown [facility] / Unknown 04/09/2025 2:38 PM CDT 04/09/2025 2:38 PM CDT Kena Rojas MD LABORATORY Final Re sult Performing Organization Address [facility] Co de Phone Number [facility] [address] [address], [place] [phone] * ANTI HIV 1/2 (04/09/2025 2:38 PM CDT) [facility] HIV FINAL INTERPRETATOIN HIV NEGATIVE 04/10/2025 1:17 PM CDT [email or web address] Comment: HIV-1 antigen and HIV-1/HIV-2 antibodies were not detected. There is no laboratory evidence of HIV infection. HIV AG/AB, 4TH GEN NON-REACTIV E NON-REAC TIVE 04/10/2025 1:17 PM CDT [email or web address] Blood BLOOD SPECIMEN / Unknown [facility] / Unknown 04/09/2025 2:38 PM CDT 04/09/2025 2:38 PM CDT us Kena Rojas MD SEND OUTS Final Re sult Performing Organization Address [facility]/ZIP Co de Phone Number [facility] [address] [address], * CMV IGM ANTIBODY (04/09/2025 2:38 PM CDT) Pathologist [facility] CYTOMEGALOVIRUS ANTIBODY (IGM) <30.00 AU/mL 04/11/2025 4:17 PM CDT [facility] Comment: AU/mL Interpretation ----- <30.00 No Antibody Detected 30.00-34.99 Equivocal > or = 35.00 Antibody Detected Results from any one IgM assay should not be used as a sole determinant of a current or recent infection. Because an IgM test can yield false positive results and low level IgM antibody may persist for more than 12 months post infection, reliance on a single test result could be misleading. Acute infection is best diagnosed by demonstrating the conversion of IgG from negative to positive. If an acute infection is suspected, consider obtaining a new specimen and submit for both IgG and IgM testing in two or more weeks. Blood BLOOD SPECIMEN / Unknown [facility] / Unknown 04/09/2025 2:38 PM CDT 04/09/2025 2:38 PM CDT us Kena Rojas MD SEND OUTS Final Re sult [facility] [address] [place] [address], * (ABNORMAL) MEGHAN MITTAL VIRUS DNA QL PCR (BLOOD & NON BLD)REALTIME (03/06/2025 3:43 PM CDT) [facility] EBV DNA, QL PCR Detected( A) Not Detected 03/10/2025 7:52 AM CDT [facility] Comment: (Note) This test was developed and its analytical performance characteristics have been determined by [facility]. It has not been cleared or approved by FDA. This assay has been validated pursuant to the CLIA regulations and is used for clinical purposes. [facility] [address] [place] [place] [address],[address] [facility] [address] Yash Diaz MD, PhD SOURCE EBVPCR Blood 03/10/2025 7:52 AM CDT [facility] Other BLOOD SPECIMEN / Unknown Non-Blood / Unknown 03/06/2025 3:43 PM CDT 03/06/2025 3:43 PM CDT us Jessie ALLEN SEND OUTS Final R esult Performing Organization Address [facility]/ZIP Co de Phone Number [email or web address] [address] [place] [address], [place] [phone] * (ABNORMAL) IGA (03/06/2025 3:43 PM CDT) IMMUNOGLOBULIN A 322(H) 47 - 310 mg/dL 03/09/2025 2:11 PM CDT [facility] Blood BLOOD SPECIMEN / Unknown [facility] / Unknown 03/06/2025 3:43 PM CDT 03/06/2025 3:43 PM CDT us Jessie ALLEN CHEMISTRY Final R esult Performing Organization Address [facility] Co de Phone Number [email or web address] [address] [place] [address], [place] [phone] * IGM (03/06/2025 3:43 PM CDT) IMMUNOGLOBULIN M 88 50 - 300 mg/dL 03/09/2025 2:11 PM CDT [facility] Blood BLOOD SPECIMEN / Unknown [facility] / Unknown 03/06/2025 3:43 PM CDT 03/06/2025 3:43 PM CDT us Jessie ALLEN CHEMISTRY Final R esult Performing Organization Address [facility]/ZIP Co de Phone Number [email or web address] [address] [place] [address], [place] [phone] * IGG (03/06/2025 3:43 PM CDT) IMMUNOGLOBULIN G 1007 600 - 1640 mg/dL 03/09/2025 2:11 PM CDT [facility] Blood BLOOD SPECIMEN / Unknown [facility] / Unknown 03/06/2025 3:43 PM CDT 03/06/2025 3:43 PM CDT us Jessie ALLEN CHEMISTRY Final R esult Performing Organization Address City/State/[facility] Co de Phone Number [facility] [id number] [place] [address], * HEPATIC FUNCTION PANEL (03/06/2025 3:43 PM CDT) Pathologist [facility] ALBUMIN 5.0 3.6 - 5.1 g/dL 03/07/2025 3:52 AM CDT [facility] PROTEIN, TOTAL 7.6 6.1 - 8.1 g/dL 03/07/2025 3:52 AM CDT [facility] BILIRUBIN, TOTAL 0.6 0.2 - 1.2 mg/dL 03/07/2025 3:52 AM CDT [facility] BILIRUBIN, DIRECT 0.1 < OR = 0.2 mg/dL 03/07/2025 3:52 AM CDT [facility] BILIRUBIN, INDIRECT 0.5 0.2 - 1.2 mg/dL (calc) 03/07/2025 3:52 AM CDT [facility] ALKALINE PHOSPHATASE 69 36 - 130 U/L 03/07/2025 3:52 AM CDT [facility] ALT 10 9 - 46 U/L 03/07/2025 3:52 AM CDT [facility] AST 14 10 - 40 U/L 03/07/2025 3:52 AM CDT [facility] GLOBULIN 2.6 1.9 - 3.7 g/dL (calc) 03/07/2025 3:52 AM CDT [facility] ALBUMIN/GLOBULIN RATIO 1.9 1.0 - 2.5 (calc) 03/07/2025 3:52 AM CDT [facility] Blood BLOOD SPECIMEN / Unknown [facility] / Unknown 03/06/2025 3:43 PM CDT 03/06/2025 3:43 PM CDT us Jessie ALLEN CHEMISTRY Final R esult [facility] [address] [place] [address], from Last 3 Months Additional Health Concerns Infection Onset Date Last Indicated MRSA Clearance Comment:Infection Control Note: Hx of MRSA, surveillance criteria met, no need for further testing or isolation precautions. Do not delete or resolve the infection flag. +MRSA: 08/29/2013 Right heel; 12/05/2012 skin pustule on left arm 12/29/2020 12/29/2020 Insurance [facility] Advance Directives * Full Code (Latest Code Status on File) Date Activated Date Inactivated Comments 12/29/2020 9:09 AM 12/29/2020 6:17 PM Question Answer Comments Code Status Discussion: Discussed Care Teams Plodding Machine Operator Relationship Specialty Start Date End Date Jessie Day PA [address] [place] [address] PCP - General Physician Engine Repair Supervisor 06/27/21
--- OUTSIDE RECORDS SUMMARY | 2025-06-05 20:17 | XMS_ITS | Clinical Summary ---
Author Organization [facility] Address [address] [place] [address] Care Team Providers Care Battery Plate Assembler Name Role Phone Elsewhere, Pcp Primary Care Provider Unavailabl e Source Comments Patient records contain information from all sites at [facility]. For routine questions regarding patient records, call [phone] during business hours, M-F 8:00 AM - 5:00 PM Central Time. Record requests for emergency care only can be directed to [phone] at any time.[facility] Allergies Active Allergy Reactions Criticality Noted Date Comments Amoxicillin Hives (Reselect Reaction) 12/02/2002 PN: LW Reaction: HIVES as a child Tolerating cefepime and cefdinir 07/2019 PN: LW Reaction: HIVES Tolerating cefepime and cefdinir 07/2019 Cephalexin Nausea Only,GI intolerance,Hives (Reselect Reaction) 01/03/2018 Medications * This document contains information received from the source organization and may not represent a complete record from that organization. acyclovir (ZOVIRAX) 800 mg tablet GIVE 1 TAB 3 TIMES DAILY FOR 5 DAYS. FOR RECURRENT OUTBREAK, START WITHIN 24-48 HOURS OF SYMPTOMS 0 Active albuterol 90 mcg/actuation inhaler Inhale 2 puffs. 5 Active cetirizine (ZyrTEC) 10 mg tablet Take 10 mg by mouth daily. Active ciprofloxacin (CIPRO) 500 mg tablet 1 Active fluticasone propionate (FLONASE) 50 mcg/actuation nasal spray Administer 1 spray into nostril(s). 6 Active HYDROcodone-acetam inophen (NORCO) 5-325 mg per tablet 1 Active hydrOXYzine (ATARAX) 25 mg tablet 1 Active ondansetron ODT (ZOFRAN-ODT) 4 mg disintegrating tablet 1 Active Active Problems No known active problems Social History Tobacco Use Types Packs/Day Years Used Date Smoking Tobacco: Never Assessed [facility] Utilities Answer Date Recorded In the past 12 months has th e [employer], gas, oil, or water [employer] threatened to shut off services in your home? No 07/04/2024 Hunger Vital Sign Answer Date Recorded Within the past 12 months, y ou worried that your food would run out before you got the money to buy more. Never true 07/04/20 24 Within the past 12 months, t he food you bought just didn't last and you didn't have money to get more. Never true 07/04/2024 PRAPARE - Transportation Answer Date Re corded In the past 12 months, has l ack of transportation kept you from medical appointments or from getting medications? No 06/16 In the past 12 months, has l ack of transportation kept you from meetings, work, or from getting things needed for daily living? No 07/04/2024 Depression Answer Date Recor ded PHQ-9 Total Score (max 27) 5 07/04 Housing Stability Answer Date Recorded What is your living situation today? I have a [facility] place to live 07/04/2024 Education Answer Date Recorded What is the highest level of school you have completed or the highest degree you have received? Some college, no degree 07/29/2020 Sex and Gender Information Value Date Recorded Sex Assigned at Male 07/04/2024 7:36 AM MORTGAGE BRANCH MANAGER Legal Sex Male 1:21 PM CDT Gender Identity Male 07/30/2020 4:32 PM MORTGAGE BRANCH MANAGER Sexual Orientation Straight 07/30/2020 4: 32 PM MORTGAGE BRANCH MANAGER Last Filed Vital Signs Vital Sign Reading Time Taken Comments Blood Pressure 139/109 07/16/2021 3:00 PM MORTGAGE BRANCH MANAGER Pulse 68 07/16/2021 3:00 PM MORTGAGE BRANCH MANAGER Temperature 36.8 C (98.2 F) 07/16/2021 3:00 PM MORTGAGE BRANCH MANAGER Respiratory Rate 18 07/16/2021 12:54 PM MORTGAGE BRANCH MANAGER Oxygen Saturation 95% 07/16/2021 3:00 PM MORTGAGE BRANCH MANAGER Inhaled Oxygen Concentration - - Weight 72.8 kg (160 lb 7.9 oz) 07/16/2021 12:49 PM MORTGAGE BRANCH MANAGER Height - - Body Mass Index - - Plan of Treatment Health Maintenance Due Date Last Done Comments Hepatitis C Screening 1999 DTaP,Tdap,and Td Vaccines (7 - Td or Tdap) 03/08/2022 03/08/2012, 05/09/2004, 08/15/2000, Additional history exists Depression Screening (Annual PHQ-2) 07/16/2024 COVID-19 Vaccine ( season) 2025 07/18/2023, 05/22/2022, 06/17/2021, Additional history exists Influenza Vaccine (#1) 2025 , 05/22/2022, 04/12/2021, Additional history exists Hepatitis B Vaccines Completed 03/06/2000, 1999, 1999 Pneumococcal vaccine (0-49 years) Aged Out 08/15/2000, 05/10/2000, 03/06/2000 No longer eligible based on patient's age to complete this topic IPV Vaccines Completed 05/09/2004, 10/15, 1999, Additional history exists HPV Vaccines Completed 09/11/2013, 04/16, 03/11/2013 HIV Screening Completed 06/27/2021, 05/05/2019 Insurance [facility] Care Teams Battery Plate Assembler Relationship Specialty Start Date End Date Elsewhere, Pcp PCP - General Family Medicine 05/12/20
--- OUTSIDE RECORDS SUMMARY | 2025-06-05 20:17 | XMS_ITS | Clinical Summary ---
Author Organization [facility] Address [address] [place] [address] Care Team Providers Care Internal Controls Manager Name Role Phone Marcelo Javier Primary Care Provider [phone] Pennie Carter MD Unavailable [phone] Allergies Active Allergy Reactions Criticality Noted Date Comments Amoxicillin 08/16/2016 Tolerating cefepime and cefdinir 07/2019 Cephalexin GI Disturbance,Hives 01/03/2018 Dogs Hives 08/16/2016 Grass 08/16/2016 Medications cetirizine (ZYRTEC) 10 MG tablet Take 10 mg by mouth daily Active VITAMIN D, CHOLECALCIFEROL, PO Take 2,000 Units by mouth daily Active multivitamin, therapeutic with minerals (MULTI-VITAMIN) TABS tablet Take 1 tablet by mouth daily Active fluticasone (FLONASE) 50 MCG/ACT spray [place] 2 sprays into both nostrils daily Active budesonide (PULMICORT FLEXHALER) 180 MCG/ACT inhaler Inhale 1 puff into the lungs daily Active Lactobacillus-In ulin ([facility] PO) Take 1 capsule by mouth daily Active melatonin 3 MG tabletIndication s:Insomnia, unspecified type Take 1 tablet (3 mg) by mouth nightly as needed 7 Active albuterol (PROAIR HFA/PROVENTIL HFA/VENTOLIN HFA) 108 (90 Base) MCG/ACT inhaler Inhale 2 puffs into the lungs 06/12/201 5 Active budesonide (PULMICORT FLEXHALER) 180 MCG/ACT inhaler Inhale 1 puff into the lungs 5 Active acetaminophen (TYLENOL) 325 MG tabletIndication s:Old complex tear of medial meniscus of right knee Take 2 tablets (650 mg) by mouth every 4 hours as needed for mild pain 50 tablet 1 Active oxyCODONE (ROXICODONE) 5 MG tabletIndication s:Old complex tear of medial meniscus of right knee Take 1-2 tablets (5-10 mg) by mouth every 4 hours as needed for moderate to severe pain 10 tablet 1 Active Additional Information Patient not taking.Reported on 04/28/2021 senna-docusate (SENOKOT-S/PERIC OLACE) 8.6-50 MG tabletIndication s:Old complex tear of medial meniscus of right knee Take 1-2 tablets by mouth 2 times daily 30 tablet 1 Active Additional Information Patient not taking.Reported on 04/28/2021 ondansetron (ZOFRAN-ODT) 4 MG ODT tabIndications:O ld complex tear of medial meniscus of right knee Take 1-2 tablets (4-8 mg) by mouth every 8 hours as needed for nausea 4 tablet 1 Active Additional Information Patient not taking.Reported on 04/28/2021 hydrOXYzine (VISTARIL) 25 MG capsuleIndicatio ns:Old complex tear of medial meniscus of right knee Take 2 capsules (50 mg) by mouth 4 times daily as needed for itching (pain) 20 capsule 1 Active Additional Information Patient not taking.Reported on 04/28/2021 Active Problems Problem Noted Date Diagnosed Date Old complex tear of medial meniscus of right kne e 02/22/2021 Overview (02/22/2021): Added automatically from request for surgery [id number] Mastoiditis, acute, left 08/10/2019 Moderate recurrent major depression 08/17/2016 School phobia 08/17/2016 Suicidal intent 08/16/2016 Immunizations Immunization Administration Dates Next Due Influenza Vaccine >6 months,quad, PF 08/12/2019 Family History Medical History Relation Comments Asthma Mother Relation Status Comments Mother Social History Tobacco Use Types Packs/Day Years Used Date Smoking Tobacco: Never Smokeless Tobacco: Never Alcohol Use Standard Drinks/Week Comments No 0 (1 standard drink = 0.6 oz pur e alcohol) PHQ-2 Answer Date Recorded PHQ-2 Score 0 01/29/2019 Adolescent Education Answer Date Record ed Getting School Help Needed Not on file 04/30 Sex and Gender Information Value Date Recorded Sex Assigned at Not on file Legal Sex Male 4:09 AM MILLED RUBBER TENDER Gender Identity Not on file Sexual Orientation Not on file Last Filed Vital Signs Vital Sign Reading Time Taken Comments Blood Pressure 131/75 04/28/2021 9:45 AM CDT Pulse 65 04/28/2021 9:45 AM CDT Temperature 36.6 C (97.8 F) 03/10/2021 1:58 PM CDT Respiratory Rate 16 03/10/2021 2:40 PM CDT Oxygen Saturation 97% 04/28/2021 9:45 AM CDT Inhaled Oxygen Concentration - - Weight 74.8 kg (165 lb) 11/05/2019 9:46 AM CDT 5'11 Height 180.3 cm (5' 11) 11/05/2019 9:46 AM CDT pt reported Body Mass Index 23.01 11/05/2019 9:46 AM CDT Plan of Treatment Not on file Medical Devices Implanted Type Area Lead Fabricator Device Identifier Shelf Expiration Date Model / Serial / Lot Imp Scr Arthrex Can [id number] Implanted:Qty: 1 on 07/26/2018 by Marcio Espino MD at [facility] Metallic Hardware/Anc hor Right: Knee ARTHREX 01/12/2023 [id number] / / [id number] Imp Scr Arthrex Can Full Thrd [id number] Implanted:Qty: 1 on 07/26/2018 by Marcio Espino MD at [facility] Metallic Hardware/Anc hor Right: Knee ARTHREX 01/12/2023 [id number] / / [id number] Insurance BCBS OUT OF STATE [facility] OUT OF STATE Advance Directives For more information, please contact: [phone] * Full Code (Latest Code Status on File) Date Activated Date Inactivated Comments 08/10/2019 5:45 PM 08/12/2019 11:44 PM Question Answer Comments Code status determined by: Unable to det ermine; FULL CODE until documents or legal decision maker available * Full Code Date Activated Date Inactivated Comments 08/16/2016 4:49 PM 08/18/2016 9:27 PM Care Teams Internal Controls Manager Relationship Specialty Start Date End Date Marcelo Javier PCP - General Family Practice 08/16/16 Pennie Carter MD Psychiatrist 08/16/16
--- OUTSIDE RECORDS SUMMARY | 2025-06-05 20:17 | XMS_ITS | Encounter Summary ---
Author Organization [facility] Address [address] [place] [address] Care Team Providers Care In Tube Conversion Technician Name Role Phone Concepcion Marcelo Edmonds Primary Care Provider [phone] Pennie Carter MD Unavailable [phone] Jennifer Rizvi MD Unavailable Marcio Espino MD Unavailable + Encounter Details Date Type Department Care Team (Late st Contact Info) Description 04/14/2021 MyC Medical Advice [address] [address] Miriam Hernández Social History Tobacco Use Types Packs/Day Years Used Date Smoking Tobacco: Never Smokeless Tobacco: Never Alcohol Use Standard Drinks/Week Comments No 0 (1 standard drink = 0.6 oz pur e alcohol) PHQ-2 Answer Date Recorded PHQ-2 Score 0 01/29/2019 Sex and Gender Information Value Date Recorded Sex Assigned at Not on file Legal Sex Male 4:09 AM ACUTE CARE ASSISTANT Gender Identity Not on file Sexual Orientation Not on file COVID-19 Exposure Response Date Recorded In the last month, have you been in contact with someone who was confirmed or suspected to have Coronavirus / COVID-19? No / Unsure 04/14/2021 9:16 AM CDT documented as of this encounter Plan of Treatment Not on file documented as of this encounter Visit Diagnoses Not on filedocumented in this encounter Care Teams In Tube Conversion Technician Relationship Specialty Start Date End Date Marcelo Javier PCP - General Family Practice 08/16/16 Pennie Carter MD Psychiatrist 08/16/16 Jennifer Rizvi MD [address] [place] [id number] Assigned Surgical Provider 05/07/20 Marcio Espino MD [address] [address] [id number] Assigned Musculoskeletal Provider 02/20/21 10/27/22 documented as of this encounter
--- OUTSIDE RECORDS SUMMARY | 2025-06-05 20:17 | XMS_ITS | Clinical Summary ---
[facility] Organization [facility] Address [address] [place] [address] Care Team Providers Care Medical Lab Scientist Name Role Phone Marcelo Javier MD Primary Care Provider [phone] Source Comments You are receiving this document as you are listed as the primary care provider,follow-up provider, or the patient has been referred to you for consultation.This is in compliance with the Medicare and[facility] EHR Incentive Program,which states Providers who transition their patient to another setting of careor provider of care or refers their patient to another provider of care shouldprovide summary care record for each transition of care or referral. [facility] Allerg[facility] Active Allergy Reactions Criticality Noted Date Comments Amoxicillin 12/02/2002 PN: LW Reaction: HIVES Review Contrast Media 05/21/2003 PN: LW CM1: Contrast Adverse Reaction - None Reaction : Review Food Intolerance 12/02/2002 PN: LW FI1: dairy- HIVES LW FI2: eggs- HIVES Medications cetirizine (AKA ZYRTEC) 10 MG tablet Take 1 tablet by mouth daily (every 24 hours). LW Addl Instr:Indicated for: Allergies 90 3 9 Active unknown medication Indications: PN: 0 Active triamcinolone acetonide (AKA KENALOG) 0.1 % cream Apply 1 Application topically 2 times daily. 80 11 0 Active azithromycin (ZITHROMAX) 200 MG/5ML suspension 999 mLs. LW Addl Instr:Take one and one-half tsp p.o once daily x 5days. 3 6 Active Spacer/Aero-Hol ding Chambers (AEROCHAMBER PLUS HEATHER-VU) [facility] [place] Addl Instr:USE DIRECTED. 1 1 6 Active ibuprofen (AKA MOTRIN) 200 MG tablet Take 1-2 tablets by mouth 3 times daily. LW Addl Instr:Take with food. 200 13 6 Active predniSONE (AKA DELTASONE) 20 MG tablet Take 1 tablet by mouth 2 times daily. Take with food. 15 tablet 0 1 Active ALBUterol 2.5 mg/3 mL, 0.083%, nebulizer solution Take 3 mLs by nebulization every 4 hours as needed. Put on file only 90 mL 3 3 Active fluticasone (AKA FLONASE) 50 MCG/ACT nasal solution Place 2 sprays into each nostril daily (every 24 hours). Dose is for each nostril. [phone] Indications: ALLERGIC RHINITIS 48 g 0 4 Active ALBUterol sulfate HFA 108 (90 BASE) MCG/ACT inhaler Inhale 2 puffs every 4 hours as needed for Wheezing. PUT ON FILE ONLY 54 g 3 5 Active budesonide (AKA PULMICORT) 180 MCG/ACT inhaler Inhale 1 puff 2 times daily. PUT ON FILE ONLY 2 each 4 5 Active fluticasone (AKA FLONASE) 50 MCG/ACT nasal solution Place 2 sprays into each nostril daily (every 24 hours). Dose is for each nostril.PUT ON FILE ONLY Indications: ALLERGIC RHINITIS 48 g 3 5 Active Active Problems Problem Noted Date Diagnosed Date Asthma 12/20/2002 Overview (03/07/2017): Asthma NOS Allergic rhinitis 12/20/2002 Overview (03/07/2017): Rhinitis Allergic NOS Immunizations Immunization Administration Dates Next Due DTaP 05/09/2004, 0,1999,1998 DTaP/Hib 08/15/2000 Flu Vac Preserv Free (3+yrs) 06/12/2005 HepB Adult (Engerix-B, 20+ y rs, 3 dose series) 03/06/2000,1999,1999 Hib (ActHIB) 1999,1999,1999 IPV (Polio) 05/09/2004, 0,1999,1998 MMR 05/09/2004,08/15/2000 Pneumococcal 7, PED 08/15/2000,05/10/2000,1999 Varicella 08/15/2000 Social History Tobacco Use Types Packs/Day Years Used Date Smoking Tobacco: Never Smokeless Tobacco: Never Sex and Gender Information Value Date Recorded Sex Assigned at Not on file Legal Sex Male 6:55 AM CDT Gender Identity Not on file Sexual Orientation Not on file Last Filed Vital Signs Vital Sign Reading Time Taken Comments Blood Pressure 134/82 02/12/2018 1:46 PM CDT Pulse 84 02/12/2018 1:46 PM CDT Temperature 37.4 C (99.3 F) 03/19/2006 12:24 PM CDT C: 37.4 C Respiratory Rate 24 03/19/2006 12:24 PM CDT Oxygen Saturation 99% 12/25/2014 11:10 AM CDT Inhaled Oxygen Concentration - - Weight 77.6 kg (171 lb) 02/12/2018 1:46 PM CDT Height 177.8 cm (5' 10) 02/12/2018 1:46 PM CDT Body Mass Index 24.54 02/12/2018 1:46 PM CDT Plan of Treatment Health Maintenance Due Date Last Done Comments Hep C Screening (Preventive Services) 1999 Asthma ACT (score of 20 or higher) 2003 HIV Screening (Preventive Services) 2015 Adult Preventive Visit 02/13/2020 02/12/2018 DTaP/Tdap/Td Vaccine (7 - Tdap) 03/08/2022 03/08/2012, 05/09/2004, 08/15/2000, Additional history exists COVID-19 Vaccine (3 - season) 2025 09/18/2020, 08/28/2020 Influenza Vaccine (#1) 2025 0, 08/12/2019, 04/26/2018, Additional history exists Zoster/Shingles Vaccine (1 of 2) 2049 HepB Vaccine Completed 03/06/2000, 10/15, 1999 Hib Vaccine Completed 08/15/2000, 10/15, 1999, Additional history exists Pneumococcal Vaccine Aged Out 08/15/2000, 05/10/2000, 03/06/2000 No longer eligible based on patient's age to complete this topic IPV (Polio) Vaccine Completed 05/09/2004, 1999, 1999, Additional history exists Varicella Vaccine Completed 06/25/2007, 08/15/2000 HPV Vaccine Completed 09/11/2013, 04/16, 03/11/2013 HepA Vaccine Completed 02/24/2016, 03/11/2013 MCV4 Vaccine Completed 02/24/2016, 03/08/2012 Meningococcal B Vaccine Aged Out No l onger eligible based on patient's age to complete this topic Insurance * Guarantor: Michael Mehta Account Type Relation to Patient Date of Phone Billing Address Personal/Family 1969 [id number] [place] [phone] BCBS OUT OF STATE Care Teams Medical Lab Scientist Relationship Specialty Start Date End Date Marcelo Javier MD [address] [place] [id number] PCP - General 10/17/10
--- OUTSIDE RECORDS SUMMARY | 2025-06-05 20:17 | XMS_ITS | Encounter Summary ---
Author Organization [facility] Address [address] [place] [address] Care Team Providers Care Diagram Clerk Name Role Phone Marcelo Javier Kendal Primary Care Provider [phone] Pennie Carter MD Unavailable [phone] Marcio Espino MD Unavailable + Jennifer Rizvi MD Unavailable Marcio Espino MD Unavailable + Encounter Details Date Type Department Care Team (Late st Contact Info) Description 11/03/2019 MyC Medical Advice [facility] [address] [facility] [address] [place] [address] Suzie Smith LPN Social History Tobacco Use Types Packs/Day Years Used Date Smoking Tobacco: Never Smokeless Tobacco: Never Alcohol Use Standard Drinks/Week Comments No 0 (1 standard drink = 0.6 oz pur e alcohol) PHQ-2 Answer Date Recorded PHQ-2 Score 0 01/29/2019 Sex and Gender Information Value Date Recorded Sex Assigned at Not on file Legal Sex Male 4:09 AM SURGICAL SERVICES ASST Gender Identity Not on file Sexual Orientation Not on file COVID-19 Exposure Response Date Recorded In the last month, have you been in contact with someone who was confirmed or suspected to have Coronavirus / COVID-19? No / Unsure 11/05/2019 9:46 AM CDT documented as of this encounter Plan of Treatment Not on file documented as of this encounter Visit Diagnoses Not on filedocumented in this encounter Care Teams Diagram Clerk Relationship Specialty Start Date End Date Marcelo Javier PCP - General Family Practice 08/16/16 Pennie Carter MD Psychiatrist 08/16/16 Marcio Espino MD [address] [place] [address] [id number] Assigned Musculoskeletal Provider 05/07/20 08/07/20 Jennifer Rizvi MD [address] [place] [address] [id number] Assigned Surgical Provider 05/07/20 Marcio Espino MD [address] [place] [address] [id number] Assigned Musculoskeletal Provider 02/20/21 10/27/22 documented as of this encounter
--- NOTE | 2025-06-05 20:21 | ED_ITS ---
HPI - General Adult General Time Seen by Provider: 20:22 Date Seen: 06/05/25 Chief complaint: Neck Injury/Pain Stated complaint: Pain and swelling on right side of neck Time Seen by Provider: 06/05/25 20:25 Source: patient Mode of arrival: ambulatory Limitations: no limitations History of Present Illness HPI narrative: 25-year-old male presents today with concern for swelling on the right side of the neck. Patient had mono over the summer and since then has had numerous Clinic, ENT, ED visits for concerns for neck pain, swelling, and cough. Has been on multiple antibiotics, prednisone, was on nystatin as well. He comes in today with increased pain on the right side of the neck, says it feels swollen, and coughing up ?black fibers along with mucus. Unable to get comfortable. No difficulty breathing or swallowing. Related Data Home Medications ?Medication ?Instructions ?Recorded ?Confirmed hydrocodone 5 mg-acetaminophen 325 1 tab PO Q6-8H speech pathologist assistant ann pain 06/23/23 06/23/23 mg tablet hydroxyzine HCl 25 mg tablet 25 mg PO BID 06/23/2304/07 oxycodone 5 mg tablet PO 06/23/23 Allergies Allergy/AdvReac Type Severity Reaction Status Date / Time amoxicillin Allergy Intermediate Hives Verified 06/05/25 20:59 cephalexin Allergy Intermediate Verified 06/05/25 20:59 [facility] Social History Smoking Status: Never smoker Do you use any of these nicotine containing products: None How often do you have a drink containing alcohol: never AUDIT-C Alcohol total score: 0 Non-prescribed substance use: denies use Exam Narrative: Exam Narrative: General: Well-developed and well-nourished, no acute distress Head: Atraumatic and normocephalic Eyes: Pupils are equal reactive, extraocular motions intact, conjunctiva clear ENT: External nose and ears are normal, posterior pharynx without erythema or exudate Neck: Tenderness of the left anterior lateral neck and cervical musculature, no palpable masses, no redness or warm Heart: Tachycardic but regular Lungs: Clear to auscultation bilaterally without wheezes or crackles Abdomen: Soft, nontender, nondistended with active bowel sounds Musculoskeletal: No tenderness, deformity, or edema Neurologic: Awake, alert, and oriented x3, no gross focal neurologic deficits, cranial nerves intact as tested Psych: Mood and affect are appropriate Skin: No rashes Const: Vital Signs, click to edit/add: Vital Signs - 24 hr 06/05/25 20:29 Temperature 97.8 F Pulse Rate [Left P ulse Oximeter] 110 H Respiratory Rate 20 Blood Pressure [Ri ght Upper Arm] 144/95 H Pulse Oximetry 97 Oxygen Delivery Me thod Room Air Course Course ED Course: Additional records reviewed: Ultrasound of the neck on April 28 which demonstrated prominent cervical lymph nodes measuring 1.6 x 1.1 x 0.7 cm and 2.2 x 1.5 x 0.6 cm. Patient has been seen by ENT for this, as well infectious Disease. Has been on cefdinir, doxycycline, steroids for this, also history of mastoidectomy in 2020. Additional [facility] impacted by: Anxiety Testing considered but not performed: See ED course Patient seen and examined, comes in with concerns about pain and swelling on the right side of his neck, feels like there is a mass there, also says he coughs up black fibers. On exam patient is notably anxious, tachycardic, unable to sit still, some tenderness on the left side of neck but no masses, no redness or warmth. CT scan of the neck and chest ordered, anticipate discharge. Reevaluation(s) Time of Reevaluation #1: 21:21 Reevaluation #1: Labs independently interpreted by me with normal CBC. CT scan of the neck the panel interpreted by me does not demonstrate any mass or fluid collection. CT scan of the chest and panel interpreted by me negative for acute findings. Time of Reevaluation #2: 21:35 Reevaluation #2: IMPRESSION: 1. Mildly prominent level 2 lymph nodes, nonspecific but favored reactive. 2. Otherwise no acute abnormality of the neck. Time of Reevaluation #3: 21:42 Reevaluation #3: Labs in pill interpreted by me is normal basic panel. CT scan of the chest interpreted by radiologist is negative agrees with my initial evaluation. Other than some mildly elevated lymph nodes in the neck, no etiology for patient's symptoms is found today. There is a significant anxiety component to his inability to get comfortable, plan to discharge, would not reinitiate antibiotics as patient has had multiple course of antibiotics and steroids for these symptoms with no improvement and there is no convincing evidence of an acute bacterial infection. Although he is persistently enlarged lymph nodes, these are diffuse and appear reactive, no abnormal cell lines on mL or marked leukocytosis to suggest former leukemia this time. Continued follow-up with primary care and consider initiation of medications for anxiety. Vital Signs Vital signs: Initial Vital Signs Temperature 97.8 F 06/05/25 20:29 Temperature Source Temporal Artery Scan 06/05/25 20:29 Pulse Rate 110 H 06/05/25 20:29 Pulse Rhythm Regular 06/05/25 20:29 Respiratory Rate 20 06/05/25 20:29 Blood Pressure 144/95 H 06/05/25 20:29 Blood Pressure Mean 111 H 06/05/25 20:29 Blood Pressure Position Sitting 06/05/25 20:29 Pulse Oximetry 97 06/05/25 20:29 Oxygen Delivery Method Room Air 06/05/25 20:29 Vital Signs Temperature 97.8 F 06/05/25 20:29 Pulse Rate 110 H 06/05/25 20:29 Respiratory Rate 20 06/05/25 20:29 Blood Pressure 144/95 H 06/05/25 20:29 Pulse Oximetry 97 06/05/25 20:29 Oxygen Delivery Method Room Air 06/05/25 20:29 Temperature 97.8 F 06/05/25 20:29 Pulse Rate 110 H 06/05/25 20:29 Respiratory Rate 20 06/05/25 20:29 Blood Pressure 144/95 H 06/05/25 20:29 Pulse Oximetry 97 06/05/25 20:29 Oxygen Delivery Method Room Air 06/05/25 20:29 Medical Decision Making Lab Data Labs: Lab Results 06/05/25 Range/Units 21:00 WBC 7.45 (4.50-11.00) K/uL RBC 5.31 (4.30-5.90) m/uL Hgb 16.6 (13.5-17.5) gm/dL Hct 47.3 (37.0-53.0) % MCV 89 (80-100) fL MCH 31 (26-34) pg MCHC 35 (32-36) gm/dL RDW Coeff of Lidia 12.2 (11.5-15.5) % Plt Count 234 (140-440) K/uL Neut % (Auto) 44.3 (42.0-72.0) % Lymph % (Auto) 43.5 (20-44) % [place] % (Auto) 10.9 (0.0-11.0) % Eos % (Auto) 0.7 (0.0-7.0) % Baso % (Auto) 0.3 (0.0-3.0) % Neut # (Auto) 3.31 (1.7-7.0) K/uL Lymph # (Auto) 3.24 H (0.90-2.90) K/uL [place] # (Auto) 0.80 (0.00-0.90) K/UL Eos # (Auto) 0.05 (0.00-0.50) K/uL Baso # (Auto) 0.02 (0.00-0.30) K/uL Abs Immat Gran (auto) 0.02 (0.00-0.30) K/uL Imm/Tot Granulo (auto) 0.3 % Sodium 140 (135-149) mmol/L Potassium 3.7 (3.6-5.1) mmol/L Chloride 99 (96-114) mmol/L Carbon Dioxide 26 (20-32) mmol/L Anion Gap 15 (7-15) mEq/L BUN 13 (5-24) mg/dL Creatinine 0.9 (0.5-1.5) mg/dL Estimated Creat Clear 130.55 Estimated GFR 121 ml/min Glucose 115 (60-115) mg/dL Calcium 9.7 (8.4-10.6) mg/dL Discharge Plan Discharge Clinical Impression: Adenopathy, cervical Patient Disposition: Home, Self-Care Condition: Stable Instructions: Lymphadenopathy (ED) Additional Instructions: Follow-up with your primary care provider and ENT in 1-2 weeks for recheck Activity Level: No Restrictions Discharge Diet: Regular Prescriptions: No Action hydrocodone-acetaminophen 5-325 mg tablet 1 tab PO Q6-8H hydroxyzine HCl 25 mg tablet 25 mg PO BID oxycodone 5 mg tablet PO Follow Up/Referrals: Marcelo Javier MD [Primary Care Provider, Family Practice] Stand Alone Forms: Comprimatoealth Info Instructions
[2025-06-05 20:29] VITALS: BP 144/95; PULSE 110; RESP 20; TEMP 36.6; O2SAT 97; BMI 22.8
--- NOTE | 2025-06-05 20:51 | CRLHL7_ITS ---
For Patients: As a result of the Century Cures Act, medical imaging exams and procedure reports are released immediately into your electronic medical record. You may view this report before your referring provider. If you have questions, please contact your health care provider. INDICATION: Pain and swelling on right side of the neck. TECHNIQUE: CT soft tissue of the neck was acquired with 80 cc Isovue 370 IV contrast. COMPARISON: None. FINDINGS: Skull base: Unremarkable. Pharynx/Larynx/Trachea: Airway is patent. Epiglottis is normal. Adjacent soft tissues are unremarkable. Salivary glands: Left submandibular gland is absent or atrophic. Otherwise unremarkable. Thyroid gland: Unremarkable. No significant nodules. Lymph nodes: Mildly prominent level 2 lymph nodes. Vessels: Unremarkable for age. Bones: Unremarkable for age. Misc: No inflammation, mass, or fluid collection. Lung apices: Unremarkable. IMPRESSION: 1. Mildly prominent level 2 lymph nodes, nonspecific but favored reactive. 2. Otherwise no acute abnormality of the neck. Please note that all CT scans at this facility use dose modulation, iterative reconstruction, and/or weight-based dosing when appropriate to reduce radiation dose to as low as reasonably achievable. Dictated by Bill Howell MD @ 06/05/2025 9:34:18 PM (Electronically Signed)
--- NOTE | 2025-06-05 20:51 | CRLHL7_ITS ---
For Patients: As a result of the Century Cures Act, medical imaging exams and procedure reports are released immediately into your electronic medical record. You may view this report before your referring provider. If you have questions, please contact your health care provider. INDICATION: Pain and swelling on right side of the neck. TECHNIQUE: CT chest acquired with 80 cc Isovue 370 IV contrast. COMPARISON: None. FINDINGS: Lungs and pleura: Lungs and pleural spaces are clear. No suspicious nodules or infiltrates. No pleural effusions, pleural thickening, or pneumothorax. Heart and vasculature: Heart size is normal. Thoracic aorta and pulmonary artery are normal in caliber. Lymph nodes/mediastinum: No mediastinal, hilar, or axillary adenopathy. Thyroid gland is unremarkable. Chest wall: No masses. Upper abdomen: No significant findings. Bones: Unremarkable for age. IMPRESSION: Unremarkable CT of the chest. Please note that all CT scans at this facility use dose modulation, iterative reconstruction, and/or weight-based dosing when appropriate to reduce radiation dose to as low as reasonably achievable. Dictated by Bill Howell MD @ 06/05/2025 9:37:59 PM (Electronically Signed)
[2025-06-05 21:11] LABS: Hematocrit* 47.3 % (37.0-53.0); Hemoglobin* 16.6 gm/dL (13.5-17.5); Immature Granulocytes Abs Auto 0.02 K/uL (0.00-0.30); Immature Granulocytes Pct Auto 0.3 %; Lymphocytes Absolute Auto 3.24 K/uL (0.90-2.90); Mean Corpuscular HGB Conc 35 gm/dL (32-36); Mean Corpuscular Hemoglobin 31 pg (26-34); Mean Corpuscular Volume 89 fL (80-100); RDW Coefficient of Variation % 12.2 % (11.5-15.5); Red Blood Count* 5.31 m/uL (4.30-5.90); White Blood Count* 7.45 K/uL (4.50-11.00)
[2025-06-05 21:12] LABS: Slide Review Reflex No
[2025-06-05 21:25] LABS: Chloride* 99 mmol/L (96-114); Potassium* 3.7 mmol/L (3.6-5.1); Sodium* 140 mmol/L (135-149)
[2025-06-05 21:28] LABS: Anion Gap 15 mEq/L (7-15); Blood Urea Nitrogen* 13 mg/dL (5-24); Carbon Dioxide* 26 mmol/L (20-32); Creatinine* 0.9 mg/dL (0.5-1.5); Est. Creatinine Clearance* 130.55; Estimated Glomerular Filt Rate 121 ml/min
[2025-06-05 21:29] LABS: Calcium* 9.7 mg/dL (8.4-10.6); Glucose* 115 mg/dL (60-115)
== END 2025-06-05 22:11 | disposition home or self-care (01) ==
PROVIDERS: Emergency Provider Family Medicine; PCP Physician Assistant Medical
DX: R59.0 Localized enlarged lymph nodes (principal); F41.9 Anxiety disorder, unspecified
CPT/HCPCS: 36415; 70491; 71260; 80048; 85025; 99284; 99285; Q9967